=== PATIENT | male | born 1950 | race Caucasian/White ===

== ENCOUNTER 2021-09-18 20:00 | Emergency (ER) | payer MEDICARE, OTHER, SELFPAY ==
--- NOTE | ~2021-09-18 | CT_ITS ---
EXAMINATION: CT brain wo con EXAM DATE: 09/18/2021 21:59 INDICATION: fall nasal laceration . TECHNIQUE: Spiral CT of the head was performed without contrast. Axial, coronal and sagittal images were reviewed. The dose-length product (DLP) for this examination was 681.00 mGy-cm. The exposure w as tailored according to patient size, and iterative reconstruction (ASIR) was used as additional dos e reduction technique. Comparison is made to prior examination from 04/26/2018. FINDINGS: There is no acute intraparenchymal hemorrhage. No evidence of intraparenchymal brain mass lesion. No evidence of acute infarction. Please note that initial head CT has limited sensitivity f or small or acute infarctions. 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 There is mild p eriventricular and subcortical hypodensity, nonspecific but probably related to small vessel ischemic disease. There is mild to moderate prominence of the sulci and ventricles related to cerebral atro phy. There is intracranial carotid arteriosclerosis. There are no extra-axial collections. There is no mass effect or midline shift. The orbits are unremarkable. Soft tissue is unremarkable. Mild bilateral ethmoid opacity. Nasal bone and septal fractures will be described facial bone report same date. IMPRESSION: 1. No acute intracranial findings. 2. Chronic age related findings. Reviewed, dictated and finalized at location A. GARAGE MECHANIC
--- NOTE | ~2021-09-18 | CT_ITS ---
EXAMINATION: CT facial & cervical spine wo EXAM DATE: 09/18/2021 22:00 INDICATION: Fall, head injury. Nasal laceration. TECHNIQUE: Spiral CT of the facial bones was acquired in the axial plane. Coronal reformatted images were also reviewed. Spiral CT of the cervical spine was performed without contrast. Axial images we re reviewed. Coronal and sagittal reformatted images were also reviewed. The dose-length product (DL P) for this examination was 520.43 mGy-cm. The exposure was tailored according to patient size, and iterative reconstruction (ASIR) was used as additional dose reduction technique. There is no prior s tudy for comparison. FINDINGS: FACIAL CT: Acute closed posttraumatic nondisplaced bilateral nasal bone fractures. There is acute no ndisplaced nasal septal fracture. The sinuses are intact. There is mild ethmoid opacity and mild bila teral maxillary sinus mucoperiosteal thickening. The orbits, globes and extraocular muscles are unre markable. The visualized sinuses and mastoid air cells are well aerated. CERVICAL CT: Minimal anterior wedged appearance at T1, age indeterminate compression fracture, certai nly could be chronic. No unstable or definite acute fractures. The odontoid process is intact. Pre- dens space is normal. Prevertebral soft tissue is normal. There are no soft tissue abnormalities id entified. There is no disc space widening or traumatic vertebral body subluxation suspected. There is severe disc disease at C3-4 and C5-6, moderate to severe at C6-7. There is severe cervical uncover tebral joint arthropathy and overall moderate facet arthropathy. Carotid arterial sclerosis. A detai led level by level evaluation of spondylosis can be added as addendum if requested. IMPRESSION: 1. Nondisplaced nasal septal, bilateral nasal bone fractures. 2. T1 age indeterminate minimal anterior wedging. 3. Advanced cervical spondylosis. Reviewed, dictated and finalized at location A. DEALER
[2021-09-18 20:09] VITALS: BP 111/94; PULSE 83; RESP 20; TEMP 36.1; O2SAT 96
[2021-09-18 21:45] VITALS: BP 112/84; PULSE 86; RESP 19; O2SAT 99
--- NOTE | 2021-09-19 02:22 | ED.FALL ---
HPI - Fall General Chief Complaint: Fall Stated Complaint: fall, facial trauma Time Seen by Provider: 09/18/21 21:36 Source: patient History of Present Illness HPI Narrative: Patient presents with facial trauma. Reports he tripped on his front steps and struck his face on the concrete. He noted bleeding so he came to the ER for evaluation. Reports his primary area of pain is his nose he denies loss of consciousness headache focal numbness or weakness, changes in vision. Denies any prodrome prior to the event such as chest pain shortness of breath lightheadedness or dizziness. Denies any nausea vomiting or diaphoresis. Reports he takes full dose aspirin but is not on any other blood thinners Related Data Home Medications Medication Instructions Recorded Confirmed amlodipine 5 mg PO QAM 01/16/20 09/09/20 duloxetine 60 mg PO QAM 01/16/20 09/09/20 meloxicam 15 mg PO DAILY 01/16/20 09/09/20 propranolol 40 mg PO BID 01/16/20 09/09/20 rosuvastatin 10 mg PO QAM 01/16/20 09/09/20 Allergies Allergy/AdvReac Type Severity Reaction Status Date / Time Penicillins Allergy Unknown Rash Verified 09/18/21 21:36 Tetanus Vaccines and Toxoid Allergy Unknown Unknown Verified 09/18/21 21:36 Animal Dander Allergy Mild Itching Uncoded 09/18/21 21:36 Review of Systems Review of Systems: CONSTITUTIONAL: Denies fever, chills, or sweats. EYES: Denies visual changes, redness, or discharge. ENT: Denies rhinorrhea, congestion, sore throat, or otalgia. CARDIOVASCULAR: Denies chest pain, palpitations, or edema. RESPIRATORY: Denies cough or dyspnea. GASTROINTESTINAL: Denies abdominal pain, nausea, vomiting, or diarrhea. GENITOURINARY: Denies dysuria or hematuria. SKIN: Denies rash or itching. MUSCULOSKELETAL: Denies back pain, joint pain, or myalgia. NEUROLOGIC: Denies headache, numbness, dizziness, or weakness. PSYCHIATRIC: Denies anxiety or depression. All systems reviewed & are unremarkable except as noted in HPI and below PMFSH Past Medical History Medical History Arthritis Asthma Bimalleolar fracture of right ankle Depression Dizziness Fever History of adverse reaction to anesthesia HTN (hypertension) Right ankle injury Seasonal allergies Skin cancer Stroke Vertigo Vision abnormalities Surgical History Surgical History History of appendectomy Family History Family History Sibling Hypertension Family history of diabetes mellitus in first degree relative Father Family history of malignant neoplasm Social History Social History Smoking end date: 10/30/11 Alcohol intake: current Drinks per week: 20 Substance use: unknown Gender identity (if verbalized by the patient): Male Sexual Orientation (if Verbalized by the Patient): Straight or Heterosexual Exam Narrative: GENERAL: Well-appearing, well-nourished, and in no acute distress. HEAD: Normocephalic, 2 and half centimeter laceration midline nose down to the base through and through to his mucosal nasal cartilage visualized superficial laceration to the bridge of the nose EYES: PERRLA and EOMI. ENT: Nares clear, no rhinorrhea or epistaxis. Mucous membranes moist. NECK: Supple. No masses no midline neck pain CHEST: Clear to auscultation. No respiratory distress. No wheezes rales or rhonchi HEART: Regular rate and rhythm. No murmur heard. Normal peripheral pulses. ABDOMEN: Soft, nontender, nondistended, normal active bowel sounds. EXTREMITIES: Normal range of motion. No edema. SKIN: Warm, dry, no rash. NEURO: Cranial nerves II through XII are intact patient has 5 out of 5 strength in all extremities sensation intact to light touch in all extremities alert and oriented x3. PSYCH: Normal mood and affect. Course Reevaluation(s) Reevaluation #1: Toshia
--- NOTE | 2021-09-19 02:57 | PC.NURSE ---
This nurse was taking care of an ICU pt . That is why vitals and comfort measures are not per normal.
[2021-09-19 02:59] VITALS: BP 146/74; PULSE 77; RESP 18; O2SAT 99
--- NOTE | 2021-09-20 11:48 | WPDCN ---
Assessment and Plan Assessment and plan (1) Open fracture of nasal septum: Code(s): S02.2XXB - Fracture of nasal bones, initial encounter for open fracture Status: Acute Assessment and Plan: Soft tissue repairs only for these nondisplaced nasal fractures. (2) Complex laceration of nose: Code(s): S01.21XA - Laceration without foreign body of nose, initial encounter Status: Acute Assessment and Plan: Complex repair of internal and external nasal laceration with cartilage laceration Additional Plan Follow up with Dr Johnson in 1 week. Oral antibiotics. Tramadol. Dressing instructions. HPI Data of Consult Date/Time: 09/20/21 11:48 Primary Care Provider: Jennifer Ruth, PA Consult Narrative Narrative: Kaden Abdul is a 70 year old male sleeping on the gurney in emergency room 8. He responded to my presence and positioned himself. He had fallen at home onto some concrete and I was asked to evaluate him for repairs of a nasal laceration. The laceration was down the midline with torn cartilage exposed from the left genu. The laceration split the lobule and columella. The soft tissue tear extended into the left nasal vestibule where columellar tissue had from the nasal septum. CT scans revealed nondisplaced fractures of the nasal bones and septum. The patient did not recall having had a nasal fracture in the past. He was not able to recall his entire medication list. He is reported to be on 325 mg aspirin daily. He was not bleeding at the time I was with him. Plan is to repair the nose under local anesthetic in the emergency room. And follow-up in my office in roughly 1 week. He will be discharged on cephalexin and Tramadol he will be up-to-date on his Tdap. [facility] Past Medical History Medical History Arthritis Asthma Bimalleolar fracture of right ankle Depression Dizziness Fever History of adverse reaction to anesthesia HTN (hypertension) Right ankle injury Seasonal allergies Skin cancer Stroke Vertigo Vision abnormalities Surgical History Surgical History History of appendectomy Family History Family History Sibling Hypertension Family history of diabetes mellitus in first degree relative Father Family history of malignant neoplasm Social History Social History Smoking end date: 10/30/11 Alcohol intake: current Drinks per week: 20 Substance use: unknown Gender identity (if verbalized by the patient): Male Sexual Orientation (if Verbalized by the Patient): Straight or Heterosexual Meds Home Medications and Allergies Home Medications Medication Instructions Recorded Confirmed Type amlodipine 5 mg PO QAM 01/16/20 09/09/20 History duloxetine 60 mg PO QAM 01/16/20 09/09/20 History meloxicam 15 mg PO DAILY 01/16/20 09/09/20 History propranolol 40 mg PO BID 01/16/20 09/09/20 History rosuvastatin 10 mg PO QAM 01/16/20 09/09/20 History bacitracin 1 applic TOPICAL BID #14 g 09/19/21 Rx cephalexin 500 mg PO Q8H #15 cap 09/19/21 Rx tramadol 100 mg PO .q6 PRN #10 tablet 09/19/21 Rx Allergies Allergy/AdvReac Type Severity Reaction Status Date / Time Penicillins Allergy Unknown Rash Verified 09/18/21 21:36 Tetanus Vaccines and Toxoid Allergy Unknown Unknown Verified 09/18/21 21:36 Animal Dander Allergy Mild Itching Uncoded 09/18/21 21:36
--- NOTE | 2021-09-20 12:07 | W.PM.PROC2 ---
Procedure Note - Detailed Date of Procedure 09/20/21 Pre-op Diagnosis fall, facial trauma Post-op Diagnosis other ( open nasal fracture and complex laceration of the nose) Procedure Performed Complex repair of the through and through laceration of the nasal lobule and left vestibule. 5.5 cm Surgeon Trace Johnson MD Anesthesia local Indications facial trauma Description of Procedure The patient was cooperative and comfortable on the emergency [place]. The nose and mid face were prepped and draped in usual fashion. The wounds were directly infiltrated with 1% lidocaine with epinephrine achieving satisfactory anesthesia. All the wounds were carefully explored and documented. It was not significantly bleeding at this time. The nasal vestibule mucosal tear was repaired 1st with interrupted 4-0 Vicryl with the knots buried internally. The lacerated genu of the left lower lateral cartilage was repaired to the adjacent soft tissue. This was done with interrupted 4-0 Vicryl suture. A couple of stitches were placed in the deep dermis of the nose approximating the wound margins at anatomic landmarks. The skin was then closed with interrupted 5 0 nylon roughly down the midline from the upper lobule to the base of the columella. . According to the patient's evaluation there were no intraoral or dental injuries. Nasal fracture seen on CT scan were nondisplaced. Drains No Packing No Pathology none sent Complications No immediate complications Condition stable Disposition no change
== END 2021-09-19 02:59 | disposition home or self-care (01) ==
PROVIDERS: Emergency Provider Emergency Medicine; PCP Physician Assistant
DX: S02.2XXB Fracture of nasal bones, initial encounter for open fracture (principal); J45.909 Unspecified asthma, uncomplicated; M19.90 Unspecified osteoarthritis, unspecified site; I10 Essential (primary) hypertension; Z85.828 Personal history of other malignant neoplasm of skin; Z86.73 Personal history of transient ischemic attack (TIA), and cerebral infarction without residual deficits; Z87.891 Personal history of nicotine dependence; Z79.82 Long term (current) use of aspirin; W10.9XXA Fall (on) (from) unspecified stairs and steps, initial encounter
CPT/HCPCS: 13152; 70450; 70486; 72125; 99284

== ENCOUNTER 2024-03-04 13:34 | Outpatient (CLI) | payer MEDICARE, OTHER, SELFPAY ==
--- NOTE | ~2024-03-04 | MR_ITS ---
EXAMINATION: MR lumbar spine wo con DATE: 03/04/2024 14:21 INDICATION: Wedge compression fracture of fourth lumbar vertebra. TECHNIQUE: Magnetic resonance imaging (MRI) of the lumbar spine was performed without intravenous con trast. Sequences included sagittal T2-weighted FSE, sagittal T2-weighted FS FSE, sagittal T1-weighted FSE, and axial T2-weighted FSE. COMPARISON: None FINDINGS: There is 15 degrees levoscoliosis of lumbar spine. There is 3 mm retrolisthesis of T12 and L1, L1 on L2, and L2 on L3 and 3 mm anterolisthesis of L4 and L5. L1 is a limbus vertebra. There is m ild chronic anterior wedging of T10-L2 vertebral bodies. There is a burst fracture of L4 with 1/5 los s of height, low signal fracture line, and edema-like marrow signal intensity. There is severely decr eased disc height at T12-L1, moderately decreased disc height at L1-L2, severely decreased disc heigh t at L2-L3, moderately decreased disc height at L4-L5, and severely decreased disc height at L5-S1. T he distal spinal cord signal intensity is normal. The conus medullaris is at L1. The following disc l evels are specifically discussed: L1-L2: The disc is bulging. There is mild bilateral facet joint osteoarthritis. There is mild bilater al neural foraminal stenosis. There is mild central canal stenosis. L2-L3: The disc is bulging and has an annular fissure. There is moderate right and mild left facet fernanda int osteoarthritis. There is moderate bilateral neural foraminal stenosis. There is moderate central canal stenosis. L3-L4: The disc is bulging. There is moderate right and mild left facet joint osteoarthritis. There i s mild right and moderate left neural foraminal stenosis. There is severe central canal stenosis. L4-L5: The disc is bulging. There is severe bilateral facet joint osteoarthritis. There is mild bilat eral neural foraminal stenosis. There is moderate central canal stenosis. L5-S1: The disc is bulging and has an annular fissure. There is severe bilateral facet joint osteoart hritis. There is mild right and moderate left neural foraminal stenosis. There is mild central canal stenosis. IMPRESSION: 1. Acute versus subacute burst fracture of L4. 2. Severe lumbar spondylosis. 3. Lumbar levoscoliosis. Reviewed, dictated and finalized at location A.
== END 2024-03-04 13:35 ==
LOC: GOSHIMG 13:35
PROVIDERS: PCP Physician Assistant; Visit Provider Physician Assistant
DX: S32.040A Wedge compression fracture of fourth lumbar vertebra, initial encounter for closed fracture (principal); X58.XXXA Exposure to other specified factors, initial encounter; M47.896 Other spondylosis, lumbar region
CPT/HCPCS: 72148

== ENCOUNTER 2024-07-19 01:15 | Inpatient (IN) | payer MEDICARE, SELFPAY ==
[2024-07-19] VITALS (104 sets, daily range): BP systolic 75–159; BP diastolic 39–128; PULSE 104–161; RESP 19–42; TEMP 36.9–39.8; O2SAT 88–100; BMI 31.9
--- NOTE | 2024-07-19 | ECHO_ITS ---
Patient Info Name: Kaden Abdul Age: 73 years : 1950 Gender: Male Ht: 69 in Wt: 216 lbs BSA: 2.21 m2 HR: 123 bpm BP: 80 / 60 mmHg Heart Rhythm: Sinus Rhythm Technical Quality: Fair Exam Date: 07/19/2024 2:57 PM Exam Location: Echo Lab Patient Status: Inpatient Admit Date: 07/19/2024 Staff Ordering Physician: Anatoliy Roa MD Pharmacy Picking Technician: Norman Riley RDCS Attending Provider: Dianne Motta MD Referring Physician: Crispin CORTES; Exam Type: CA echo dop color flow w con Study Info Indications - respiratory failure, tachycardia Complete two-dimensional, color flow and Doppler transthoracic echocardiogram is performed with contrast to opacify the left ventricle and to improve the deliniation of the left ventricle endocardial borders. Summary 1. Technically difficult exam would done with patient on mechanical ventilator support. 2. Definity contrast used to improve visualization. 3. Global left ventricular systolic function appears to be intact. 4. No significant valvular dysfunction, mildly sclerotic aortic valve. Left Ventricle Left ventricular chamber dimension is normal. The left ventricular diastolic function is indeterminate. Global left ventricular systolic function appears normal with ejection fraction 50-55%. Right Ventricle Right ventricular chamber dimension is normal. Left Atria Left atrial chamber dimension is normal. Right Atria Right atrial chamber dimension is normal. Aortic Valve The aortic valve is trileaflet. There is mild aortic valve sclerosis. Pulmonic Valve The pulmonic valve is not well visualized. Mitral Valve The mitral valve has normal leaflets. The mitral valve annulus is mildly calcified. Tricuspid Valve The tricuspid valve leaflets are normal. Pericardium/Pleural The pericardium appears normal. Aorta The aortic root size at the sinus of Valsalva is normal. Left Ventricular Outflow Tract Name Value Normal LVOT 2D LVOT Diameter 1.91 cm LVOT Doppler LVOT Peak Gradient 2 mmHg LVOT Mean Gradient 1 mmHg LVOT VTI 13.18 cm LVOT VTI/AV VTI Ratio 1.12 LVOT Stroke Volume 37.70 ml LVOT CO 4.21 l/min LVOT CI 1.90 L/min/m2 Pulmonic Valve Name Value Normal PV Doppler PV Peak Gradient 2 mmHg Mitral Valve Name Value Normal MV Doppler MV Decel [place] 1,007.71 cm/s2 MV PHT 0 s MV Area (PHT) 9.82 cm2 4.00-5.00 MV Diastolic Fun
--- NOTE | ~2024-07-19 | XR_ITS ---
Portable chest x-ray Comparison: 07/23/2024 Clinical History: Respiratory failure Findings: Endotracheal tube, NG tube, and right IJ line are in place. [id number] bilateral ef fusions are present with bibasilar pulmonary edema/atelectasis. Cardiomediastinal silhouette is stab le. Chronic left rib fracture deformities are noted. Impression: Support tubes, as above. [id number] bilateral pleural effusions with bibasilar pulmonary edema/atelectasis. Reviewed, dictated and finalized at location M. Impression: Support tubes, as above. [id number] bilateral pleural effusions with bibasilar pulmonary edema/at electasis.
--- NOTE | ~2024-07-19 | US_ITS ---
US abdomen limited INDICATION: Elevated liver function tests PROCEDURE: Realtime right upper abdominal ultrasound. COMPARISON: No prior studies for comparison. FINDINGS: The pancreas is normal without focal mass or pancreatic ductal dilation. Liver echotexture is normal without focal mass or intrahepatic biliary dilatation. There is normal directional flow i n the portal vein. Gallbladder is contracted limiting evaluation for stones. Per clinical history there is a gallbladder drain present. Common bile duct measures 3 mm. No sonographic Samuel's sign. IMPRESSION: 1: Normal limited abdominal ultrasound. Reviewed, dictated and finalized at location B.
--- NOTE | ~2024-07-19 | CT_ITS ---
Clinical Indication: Shortness of breath CT Scan of the Chest, Abdomen, and Pelvis with Contrast: Technique: Contiguous sections were acquired throughout the chest, abdomen, and pelvis after intraven ous administration of 150 cc of Omnipaque 350. Dose reduction technique was used on this scan by uti lizing automated exposure control and iterative reconstruction technique. The dose-length product (DL P) was 1338.59 mGy-cm. Findings: There is no evidence of any significant mediastinal, hilar or axillary lymphadenopathy. The mediastin al soft tissues appear normal. No aortic aneurysm or dissection. No pulmonary embolus identified. The re are atherosclerotic calcifications of the aorta and coronary arteries. There is no evidence of pleural or pericardial effusion. There is left basilar atelectatic change. Suspected minimal subpleural reticulation in the upper lobe s. The liver, spleen, pancreas, gallbladder, and adrenal glands are within normal limits. There are bila teral nonobstructing kidney stones, measuring up to approximately 10 mm in maximum diameter on the le ft side. There are atherosclerotic calcifications of the aorta. No lymphadenopathy. There is elevati on of left hemidiaphragm. No bowel obstruction or bowel wall thickening. There is no evidence to suggest acute appendicitis. Urinary bladder is unremarkable. No pelvic mass seen. No ascites. There are compression fractures of T5 and L4. There is extensive degenerative disc disease throughout the thoracolumbar spine. Impression: Compression fractures of T5 and L4, age indeterminate. Extensive degenerative spondylosis of the spin e. Bilateral nonobstructing nephrolithiasis, as above. Probable minimal subpleural reticulation in the upper lobes. Consider very early chronic interstitial disease. Reviewed, dictated and finalized at [facility]. Impression: Compression fractures of T5 and L4, age indeterminate. Extensive degenerative s pondylosis of the spine. Bilateral nonobstructing nephrolithiasis, as above. Probable minimal subpleural reticulation in the upper lobes. Consider very leo y chronic interstitial disease.
--- NOTE | ~2024-07-19 | XR_ITS ---
EXAMINATION: XR chest 1V portable DATE: 07/26/2024 05:33 INDICATION: Intubation TECHNIQUE: frontal view of the chest was obtained. COMPARISON: Chest radiograph dated 07/25/2024 FINDINGS: Endotracheal tube tip 6.2 cm above the severino. Nasogastric tube tip in proximal side port in the body of the stomach. Right internal jugular central venous catheter with distal tip near the superior cav oatrial junction. Decreased lung predominant streaky opacities at the right lower lung zone. No significant change in o pacities in the left mid and lower lung zone consistent with small layering left pleural effusion wit h associated atelectasis and/or pneumonia. There is elevation of the left hemidiaphragm with gas-fill ed loops of bowel projecting over the apex of the heart. No pneumothorax or definitive right pleural effusion. Heart size within normal limits for AP technique. Old bilateral rib fractures. IMPRESSION: 1. Unchanged unchanged elevation of the left hemidiaphragm with small left pleural effusion and assoc iated basilar atelectasis and/or pneumonia. 2. Improvement in mild streaky right basilar atelectasis versus pneumonia. Reviewed, dictated and finalized at location A. IMPRESSION: 1. Unchanged unchanged elevation of the left hemidiaphragm with small left pleu ral effusion and associated basilar atelectasis and/or pneumonia. 2. Improvement in mild streaky right basilar atelectasis versus pneumonia.
--- NOTE | ~2024-07-19 | XR_ITS ---
Portable chest x-ray Comparison: 07/21/2024 Clinical History: COPD, respiratory failure Findings: Endotracheal tube, NG tube, and right IJ line remain in place. Probable moderate left pleu ral effusion and moderate right pleural effusion. Bibasilar pulmonary edema/atelectasis. Cardiomedia stinal silhouette is stable. Bones and soft tissues are unremarkable. Impression: Moderate pleural effusions with bibasilar pulmonary edema/atelectasis. Support tubes, as above. Reviewed, dictated and finalized at location . Impression: Moderate pleural effusions with bibasilar pulmonary edema/atelectasis. Support tubes, as above.
--- NOTE | ~2024-07-19 | US_ITS ---
EXAMINATION: US venous doppler E DATE: 07/20/2024 12:11 INDICATION: Left upper limb swelling. TECHNIQUE: Grayscale ultrasound images without and with compression and Doppler ultrasound images of the left upper extremity veins were obtained. COMPARISON: None. FINDINGS: The visualized portions of the left internal jugular vein, subclavian vein, axillary vein, brachial v eins, basilic vein, radial vein, and ulnar vein are patent. There is thrombus in left cephalic vein. IMPRESSION: 1. No deep venous thrombosis. 2. Thrombus in left cephalic vein, which is a superficial vein. Reviewed, dictated and finalized at location A.
--- NOTE | ~2024-07-19 | CT_ITS ---
EXAMINATION:CT diagnostic chest wo con DATE: 07/23/2024 09:23 INDICATION: Respiratory failure. TECHNIQUE: Computed tomography (CT) of the chest was performed without intravenous contrast. Automate d exposure control and iterative reconstruction technique were employed. The dose-length product (DLP ) was 774.68 mGy-cm. COMPARISON: Chest CT 07/19/2024 FINDINGS: There are small pleural effusions, left worse than right. There is collapse of right lung l ower lobe. There is passive atelectasis in left lower lobe and dependent left upper lobe. Calcified l eft lung nodules are consistent with old granulomatous disease. There is septal thickening at the andree g apices, consistent with mild pulmonary edema. The endotracheal tube tip is in expected position in the trachea. The nasogastric tube tip is in the stomach. The heart size is normal. There are coronary artery calcifications. No pericardial effusion. Partially visualized is a cholecystostomy tube. Ther e is thoracic dextroscoliosis and severe spondylosis. There is chronic height loss of multiple verteb ral bodies. There is a compression fracture of T5 with 1/5 loss of height. IMPRESSION: 1. Mild pulmonary edema. 2. Small pleural effusions, left worse than right. 3. Collapse of right lung lower lobe, worse than expected for the size of the pleural effusion. 4. Subacute T5 compression fracture. Reviewed, dictated and finalized at location A. IMPRESSION: 1. Mild pulmonary edema. 2. Small pleural effusions, left worse than right. 3. Collapse of right lung lower lobe, worse than expected for the size of the p leural effusion. 4. Subacute T5 compression fracture.
--- NOTE | ~2024-07-19 | XR_ITS ---
EXAMINATION: XR chest 1V portable DATE: 07/22/2024 19:21 INDICATION: Increasing oxygen demand TECHNIQUE: frontal view of the chest was obtained. COMPARISON: Chest radiograph dated 07/22/24 at 5:18 AM FINDINGS: Endotracheal tube tip 4.7 cm above the severino. Nasogastric tube extends below the left hemidiaphragm with distal tip collimated off the study. Again seen is elevation the left hemidiaphragm. No interval change in a gradient of basilar predomina nt hazy airspace opacities throughout the left lung and in the right mid to lower lung consistent wit h likely moderate-sized posterior layering bilateral pleural effusions with associated atelectasis an d/or pneumonia. No pulmonary edema or pneumothorax. Cardiomediastinal silhouette is within normal main its for AP technique. IMPRESSION: 1. Elevation of the left hemidiaphragm with no significant change in likely moderate-sized bilateral pleural effusions with associated basilar atelectasis and/or pneumonia. Reviewed, dictated and finalized at location A. IMPRESSION: 1. Elevation of the left hemidiaphragm with no significant change in likely mod erate-sized bilateral pleural effusions with associated basilar atelectasis and /or pneumonia.
--- NOTE | ~2024-07-19 | XR_ITS ---
EXAMINATION: XR chest 1V portable DATE: 07/20/2024 05:28 INDICATION: Intubated. Chronic obstructive pulmonary disease exacerbation. TECHNIQUE: A single frontal view of the chest was obtained. COMPARISON: Chest single view 07/19/2024, chest CT 07/19/2024 FINDINGS: There is marked elevation of left hemidiaphragm. There are airspace opacities in the left m id and lower lung zones, likely atelectasis. No pneumothorax. The heart size is normal. The endotrach eal tube tip is 4.2 cm above the severino. The nasogastric tube tip is in the stomach. A right internal jugular central venous catheter is seen with tip in the right atrium. There are old healed left rib fractures. IMPRESSION: 1. Marked elevation of left hemidiaphragm. 2. Airspace opacities in the left mid and lower lung zones, likely atelectasis. Reviewed, dictated and finalized at location A.
--- NOTE | ~2024-07-19 | US_ITS ---
EXAMINATION: US perc cholecystostomy w imag DATE: 07/20/2024 12:27 INDICATION: Acute cholecystitis. TECHNIQUE: The skin overlying the liver and gallbladder was prepped and draped in usual sterile fashi on. Anesthetic was administered with 1% lidocaine subcutaneously. An 8.5 Fr catheter was inserted i nto the gallbladder by trocar technique. The metal stiffener and trocar needle were removed, and the pigtail tip was locked. Bile was aspirated and sent for culture. The catheter was stitched to the ski n with suture. There were no immediate complications. FINDINGS: Ultrasound images demonstrate the catheter within the gallbladder. 7 mL bile was aspirated. IMPRESSION: 1. Successful ultrasound-guided cholecystostomy tube placement. 2. 7 mL black bile was sent for aerobic and anaerobic cultures. 3. A catheter cholangiogram may be performed not less than 48 hours after tube placement if clinicall y indicated to assess cystic duct patency. If cholecystectomy is not eventually performed and the inf ectious episode has resolved, the tube may be removed over a guidewire, preferably not less than 3 we eks after placement to allow time for a mature catheter tract to form to prevent bile leakage and per itonitis. Reviewed, dictated and finalized at location A. IMPRESSION: 1. Successful ultrasound-guided cholecystostomy tube placement. 2. 7 mL black bile was sent for aerobic and anaerobic cultures. 3. A catheter cholangiogram may be performed not less than 48 hours after tube placement if clinically indicated to assess cystic duct patency. If cholecystec alice is not eventually performed and the infectious episode has resolved, the t ube may be removed over a guidewire, preferably not less than 3 weeks after shae cement to allow time for a mature catheter tract to form to prevent bile leakag e and peritonitis.
--- NOTE | ~2024-07-19 | XR_ITS ---
EXAMINATION: XR chest 1V portable DATE: 07/21/2024 05:29 INDICATION: Intubated. Mechanically ventilated. Chronic obstructive pulmonary disease exacerbation. TECHNIQUE: A single frontal view of the chest was obtained. COMPARISON: Chest single view 07/20/2024 FINDINGS: There is marked elevation of left hemidiaphragm. There are airspace opacities in right lowe r lung zone and left mid and lower lung zones. No pleural effusion or pneumothorax. The heart size is normal. There are old healed left rib fractures. The endotracheal tube tip is 5.2 cm above the michael a. The nasogastric tube tip is in the stomach. A right internal jugular central venous catheter is se en with tip in the right atrium. IMPRESSION: 1. Stable marked elevation of left hemidiaphragm. 2. Stable airspace opacities in right lower lung zone and left mid and lower lung zones, likely atele ctasis. Reviewed, dictated and finalized at location A. IMPRESSION: 1. Stable marked elevation of left hemidiaphragm. 2. Stable airspace opacities in right lower lung zone and left mid and lower ashlie ng zones, likely atelectasis.
--- NOTE | ~2024-07-19 | XR_ITS ---
XR chest 1V portable 07/27/2024 04:48 Indication: Respiratory distress. Intubation. Procedure: AP portable chest Comparison: Comparison to multiple prior studies sequentially, with oldest reviewed study dated 07/24. Findings: Endotracheal tube tip 6 cm above the severino. NG tube in the stomach. Right IJ central line in the condyle aspect of the SVC. There are multiple healed left rib fractures. Cardiomegaly. There i s airspace disease of the lower lungs and left midlung which may reflect edema and/or pneumonia. Poss ible small left effusion. No pneumothorax. Impression: 1: Bilateral airspace disease which may represent edema and/or pneumonia. Clinically correlate. No si gnificant change from prior examination. Reviewed, dictated and finalized at location B. Impression: 1: Bilateral airspace disease which may represent edema and/or pneumonia. Clini jim correlate. No significant change from prior examination.
--- NOTE | ~2024-07-19 | CT_ITS ---
CT ANGIOGRAM NECK AND HEAD History: Altered mental status. Technique: Axial noncontrast imaging of the brain was performed. Serial spiral axial images through t he head and neck were and obtained during arterial phase IV injection of 150 cc of Omnipaque 350. 3-D postprocessing and MIP images were then reconstructed on the remote workstation. Dose reduction tech nique was used on this scan by utilizing automated exposure control and iterative reconstruction tech nique. The dose-length product (DLP) was 1897.78 mGy-cm. CTA neck findings: There is suspected occlusion at the origin of the right vertebral artery, with viera spected partial reconstitution of the midportion of the right vertebral artery, which is very small i n caliber of the distal half. Left vertebral artery is widely patent, unremarkable. Bilateral common carotid, internal carotid, and external carotid arteries are patent. There is extensive calcified shae que at the right carotid bifurcation region, resulting in possibly 70% stenosis of the distal right c ommon carotid artery, and 60-70% stenosis of the origin of the right internal carotid artery. There i s also a large calcified plaque at the left carotid bifurcation/proximal left internal carotid artery , with probable 50% stenosis of the proximal left internal carotid artery. The proximal right interna l carotid artery demonstrates 60-70% stenosis relative to the normal distal artery lumen diameter. Th e proximal left internal carotid artery demonstrates 50% stenosis relative to the normal distal arter y lumen diameter. CTA head findings: Distal vertebral arteries, basilar artery, and posterior cerebral arteries are pat ent. Distal internal carotid arteries, middle cerebral arteries, and anterior cerebral arteries are p atent. No large vessel occlusion or stenosis. No aneurysm seen. Axial noncontrast imaging of the brain demonstrates no evidence for acute infarct, intracranial hemor rhage, or mass lesion. There are mild generalized atrophic changes with cavum septum pellucidum. Ruff -white distinction intact. No mass effect or midline shift. Stable probable small chronic lacunar inf arct in the right basal ganglia. Calvarium intact. Paranasal sinuses and mastoid air cells are clear. Impression: 60-70% stenosis of the proximal right internal carotid artery with additional 70% stenosis of the dis aida right common carotid artery. 50% stenosis of the proximal left internal carotid artery. 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 with partial reconstitution at its mid portion, versus severely hypoplastic right vertebral artery. Reviewed, dictated and finalized at location M. Impression: 60-70% stenosis of the proximal right internal carotid artery with additional 7 0% stenosis of the distal right common carotid artery. 50% stenosis of the proximal left internal carotid artery. 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 with partial rec onstitution at its midportion, versus severely hypoplastic right vertebral dori ry.
--- NOTE | ~2024-07-19 | XR_ITS ---
EXAMINATION: XR chest 1V portable DATE: 07/25/2024 05:21 INDICATION: Intubated TECHNIQUE: frontal view of the chest was obtained. COMPARISON: Chest radiograph dated 07/24/2024 FINDINGS: Endotracheal tube tip 5.9 cm above the severino. Nasogastric tube tip in proximal side port in the body of the stomach. Right internal jugular central venous catheter with distal tip near the superior cav oatrial junction. Gradient of basilar predominant hazy airspace opacities in the left mid to lower and right lower lung zones consistent with small right and small to moderate-sized left posterior layering pleural effusi ons with associated bibasilar atelectasis or pneumonia. No pneumothorax. Heart size is normal. Multip le old left-sided rib fractures. IMPRESSION: 1. Endotracheal tube tip 5.9 cm above the severino. Consider advancement by 3-4 cm. 2. Small right and small to moderate-sized left posterior layering pleural effusions with associated bibasilar atelectasis and/or pneumonia. Reviewed, dictated and finalized at location A. IMPRESSION: 1. Endotracheal tube tip 5.9 cm above the severino. Consider advancement by 3-4 c m. 2. Small right and small to moderate-sized left posterior layering pleural effu sions with associated bibasilar atelectasis and/or pneumonia.
--- NOTE | ~2024-07-19 | XR_ITS ---
Portable chest x-ray Comparison: 07/22/2024 Clinical History: Respiratory failure Findings: Endotracheal tube, NG tube, and right IJ line are in place. There are small bilateral pleu ral effusions with bibasilar airspace disease, left worse than right. Cardiomediastinal silhouette i s stable. Probable chronic left rib fracture deformities. Impression: Small bilateral pleural effusions with bibasilar pulmonary edema/atelectasis, left worse than right. Correlate clinically for pneumonia. Support tubes, as above. Reviewed, dictated and finalized at location . Impression: Small bilateral pleural effusions with bibasilar pulmonary edema/atelectasis, l eft worse than right. Correlate clinically for pneumonia. Support tubes, as above.
--- NOTE | ~2024-07-19 | XR_ITS ---
Portable chest x-ray Comparison: 07/29/2024 Clinical History: Pleural effusion Findings: Endotracheal tube, NG tube, and right IJ line are in place. There is extensive hazy left l jael airspace disease. There is right basilar haziness. Cardiomediastinal silhouette is stable. Chron ic left rib fracture deformities noted. Impression: Extensive left lung hazy airspace disease and right basilar haziness. Findings probably relate combin ation of pleural effusions and pulmonary edema/atelectasis. Correlate clinically for pneumonia. Reviewed, dictated and finalized at location . Impression: Extensive left lung hazy airspace disease and right basilar haziness. Findings probably relate combination of pleural effusions and pulmonary edema/atelectasi s. Correlate clinically for pneumonia.
--- NOTE | ~2024-07-19 | XR_ITS ---
XR chest 1V portable 07/28/2024 05:24 Indication: Respiratory distress Procedure: AP portable chest Comparison: Comparison to multiple prior studies sequentially, with oldest reviewed study dated 07/24. Findings: Endotracheal tube tip 6.2 cm above the severino. Small pleural effusions. Borderline heart si ze. NG tube in the stomach. Right IJ central line tip mass PA-C. Mild interstitial edema. No pneumoth orax. Impression: 1: Mild interstitial edema with small pleural effusions. Reviewed, dictated and finalized at location B. Impression: 1: Mild interstitial edema with small pleural effusions.
--- NOTE | ~2024-07-19 | XR_ITS ---
EXAMINATION: XR chest 1V portable DATE: 07/24/2024 10:30 INDICATION: Respiratory failure post bronchoscopy TECHNIQUE: frontal view of the chest was obtained. COMPARISON: Chest radiograph dated 07/24/2024 FINDINGS: Endotracheal tube tip 7.5 cm above the severino. Nasogastric tube tip in proximal side port in the body the stomach. Dual-lumen right internal jugular central venous catheter tip at the caudal superior ve na cava. Gradient of basilar predominant hazy airspace opacities in the left mid to lower and right l ower lung zones consistent with small right and small to moderate-sized left posterior layering pleur al effusions. More dense airspace opacities at the left lung base could represent associated atelecta sis or pneumonia. No pneumothorax. Heart size is normal. There is an additional catheter projecting o nanda the right abdomen. Multiple old left-sided rib fractures. IMPRESSION: 1. Endotracheal tube tip 7.5 cm above the severino. Consider advancement by 4.5 cm. 2. Small right and small to moderate-sized left posterior layering pleural effusions with associated basilar atelectasis and/or pneumonia. Reviewed, dictated and finalized at location A. IMPRESSION: 1. Endotracheal tube tip 7.5 cm above the severino. Consider advancement by 4.5 c m. 2. Small right and small to moderate-sized left posterior layering pleural effu sions with associated basilar atelectasis and/or pneumonia.
--- NOTE | ~2024-07-19 | XR_ITS ---
Portable chest x-ray Comparison: 07/28/2024 Clinical History: Respiratory failure Findings: Endotracheal tube, NG tube, and right IJ line are unchanged. [id number] left pleura l effusion present with probable left lower lobe atelectasis. Possible minimal right pleural effusion . Cardiomediastinal silhouette is stable. Bones and soft tissues are unremarkable. Impression: Support tubes, as above. [id number] left pleural effusion with left lower lobe atelectasis. Correlate for associated mild bibasilar pulmonary edema or pneumonia. Reviewed, dictated and finalized at location . Impression: Support tubes, as above. [id number] left pleural effusion with left lower lobe atelectasis. Correlate for associated mild bibasilar pulmonary edema or pneumonia.
--- NOTE | ~2024-07-19 | XR_ITS ---
EXAMINATION: XR chest ET placement, XR abdomen gastric tube insert DATE: 07/19/2024 12:00 INDICATION: Endotracheal tube and and orogastric tube insertion. TECHNIQUE: 1. Frontal view of the chest was obtained for assessment of endotracheal tube placement. 2. Supine AP view of the upper abdomen and chest was obtained for assessment of orogastric tube place ment. COMPARISON: CT dated 07/19/2024 at 4:14 AM FINDINGS: Endotracheal tube tip 6.2 cm above the severino. There opacities along the elevated left hemidiaphragm as well as a bandlike opacity left midlung zone which correspond to atelectasis on CT from 7 hours pr ior. Lung correlated with the prior CT the orogastric tube extends into the body of the stomach which is located more cephalad than typical resulting from the elevation the left hemidiaphragm. The proxi mal sideport is located near the level of the gastroesophageal junction. Size is normal. Right lung i s clear. No pneumothorax or right pleural effusion. Small left pleural effusions not excludable but n ot evident on the recent prior CT. There are few old left rib fractures. IMPRESSION: 1. Endotracheal tube tip 6.2 cm above the severino. Consider advancement by 4 cm. 2. Orogastric tube tip in the body of the stomach with proximal side-port near the gastroesophageal j unction and could consider advancement by 3-[address] the side-port definitively below level of t he gastroesophageal junction. 3. Elevation the left hemidiaphragm with opacities in the left mid and lower lung zone corresponding to atelectasis on the recent prior CT. Reviewed, dictated and finalized at location B. IMPRESSION: 1. Endotracheal tube tip 6.2 cm above the severino. Consider advancement by 4 cm. 2. Orogastric tube tip in the body of the stomach with proximal side-port near the gastroesophageal junction and could consider advancement by 3-[address] the side-port definitively below level of the gastroesophageal junction. 3. Elevation the left hemidiaphragm with opacities in the left mid and lower ashlie ng zone corresponding to atelectasis on the recent prior CT.
--- NOTE | ~2024-07-19 | XR_ITS ---
Portable chest x-ray Comparison: 07/30/2024 Clinical History: Pneumonia Findings: Endotracheal tube, NG tube, and right IJ line are unchanged. Moderate left pleural effusio n and probable minimal right pleural effusion present. There is hazy bibasilar and left perihilar air space disease. Cardiomediastinal silhouette is stable. Bones and soft tissues are unremarkable. Impression: Moderate left pleural effusion and minimal right pleural effusion. Hazy bibasilar and left perihilar airspace disease. Correlate for pulmonary edema/atelectasis versus pneumonia. Support tubes, as above. Reviewed, dictated and finalized at location . Impression: Moderate left pleural effusion and minimal right pleural effusion. Hazy bibasilar and left perihilar airspace disease. Correlate for pulmonary jeimy ma/atelectasis versus pneumonia. Support tubes, as above.
--- NOTE | ~2024-07-19 | US_ITS ---
Limited ABDOMINAL ULTRASOUND Ordering provider: Anatoliy Roa MD History: . Hyper biliary . Comparison: None. FINDINGS: LIVER: Normal size. Increased echogenicity suggestive of fat infiltration. No focal hepatic lesions o r perihepatic fluid collections are identified. Normal flow of the portal vein. GALLBLADDER: Distended with echogenic debris No evidence for stones, gallbladder wall thickening or p ericholecystic fluid collections. Wall thickness is 2.4 mm. Indeterminate sonographic Samuel's sign. BILIARY DUCTS: No evidence for intra or extrahepatic biliary dilation. Common bile duct measures 5 mm in diameter which is within normal limits. PANCREAS: Normal echotexture and size. FREE FLUID: None. IMPRESSION: Distended gallbladder with echogenic debris is suggestive of sludge. Fat infiltration of the liver. US abdomen limited, US renal BI Ordering provider: Anatoliy Roa MD History: . Hyper biliary . Comparison: None. Technique: Ultrasound bilateral kidneys. Findings: RIGHT KIDNEY: Measures 9.5x 5.2x 4.8 cm in length which is normal in size. No renal cysts. No renal m ass or visualized echogenic stones. Otherwise, normal echotexture and contour. No hydronephrosis. Nor mal renal cortical thickness. LEFT KIDNEY: Measures 11.1x 7.1x 6.0 cm in length which is normal in size. No renal cysts. No renal m ass or visualized echogenic stones. Otherwise, normal echotexture and contour. No hydronephrosis. Nor mal renal cortical thickness. BLADDER: Shirley's catheter is seen in the bladder. IMPRESSION: No definite abnormality seen. Reviewed, dictated and finalized at location A. IMPRESSION: Distended gallbladder with echogenic debris is suggestive of sludge. Fat infiltration of the liver. US abdomen limited, US renal BI Ordering provider: Anatoliy Roa MD History: . Hyper biliary . Comparison: None. Technique: Ultrasound bilateral kidneys. Findings: RIGHT KIDNEY: Measures 9.5x 5.2x 4.8 cm in length which is normal in size. No r enal cysts. No renal mass or visualized echogenic stones. Otherwise, normal ech otexture and contour. No hydronephrosis. Normal renal cortical thickness. LEFT KIDNEY: Measures 11.1x 7.1x 6.0 cm in length which is normal in size. No r enal cysts. No renal mass or visualized echogenic stones. Otherwise, normal ech otexture and contour. No hydronephrosis. Normal renal cortical thickness. BLADDER: Shirley's catheter is seen in the bladder. IMPRESSION: No definite abnormality seen.
--- NOTE | 2024-07-19 01:26 | ECG_ITS ---
Test Date: 2024-07-19 01:40:43 Measurements Intervals [place] Rate: 149 P: -21 MS: 109 QRS: -16 QRSD: 82 T: 58 QT: 285 QTc: 450 Interpretive Statements ATRIAL FLUTTER/TACHYCARDIA WITH RAPID VENTRICULAR RESPONSE LOW QRS VOLTAGE IN LIMB LEADS PATTERN CONSISTENT WITH PULMONARY DISEASE BASELINE ARTIFACT- I, II, III, AVR, AVL, AVF, V1-V6 ABNORMAL ECG No previous ECG available for comparison Electronically Signed On 07-19-2024 06:51:33 CDT by Jefry Barragan D.O.
[2024-07-19] MEDS: IPRATROPIUM 0.5 MG/ALBUTEROL SULFATE 2.5 MG AMPUL.NEB 3 ML (01:30)
[2024-07-19] MEDS: ALBUTEROL SULFATE NEB 2.5 MG/3 ML INH (01:30)
--- NOTE | 2024-07-19 01:30 | ED.GENADULT ---
HPI - General Adult General Chief complaint: Shortness of Breath/Dyspnea Stated complaint: short of breath/aphasia History of Present Illness HPI narrative: 73-year-old male presenting emergency department by EMS for evaluation of worsening shortness of breath. Family reports they initially went to an outside hospital per but the wait was too long so they decided to go back home. After arriving back home patient began developing some expressive aphasia this was approximately 6:00 p.m.. EMS was called out to the house at that time and patient declined to be transported. At that time patient's only complaint was expressive aphasia and patient was not having any shortness of breath. After EMS left patient had worsening symptoms and family once again called EMS and patient was transported to [place]. The primary reason for calling EMS the 2nd time was due to the patient having worsening shortness of breath. Patient does have history of COPD but is not on oxygen. Patient was 60% on room air and was placed on CPAP without significant improvement in his respiratory status. Patient was transitioned to BiPAP upon arrival. Upon arrival to the emergency department patient was and respiration dressed but was alert and commanding. Related Data Home Medications Medication Instructions Recorded Confirmed duloxetine 60 mg capsule,delayed 60 mg PO BID 01/16/20 09/09/20 release meloxicam 15 mg tablet 15 mg PO DAILY 01/16/20 09/09/20 propranolol 40 mg tablet 20 mg PO BID 01/16/20 09/09/20 rosuvastatin 10 mg tablet 10 mg PO QAM 01/16/20 09/09/20 albuterol sulfate 2.5 mg/3 mL 2.5 mg inhalation Q6H PRN Wheezing 07/19/24 (0.083 %) solution for nebulization albuterol sulfate 90 mcg/actuation inhalation 07/19/24 aerosol inhaler aspirin 325 mg tablet 325 mg PO DAILY 07/19/24 budesonide 160 mcg-glycopyr 9 inh inhalation BID 07/19/24 mcg-formot 4.8 mcg/actuation HFA inhaler (Breztri Aerosphere) folic acid 1 mg tablet 07/19/24 pantoprazole 40 mg tablet,delayed 40 mg PO DAILY 07/19/24 release thiamine HCl (vitamin B1) 100 mg mg 07/19/24 tablet Allergies Allergy/AdvReac Type Severity Reaction Status Date / Time Penicillins Allergy Unknown Rash Verified 09/20/24 07:25 Tetanus Vaccines and Toxoid Allergy Unknown Unknown Verified 07/19/24 07:25 Animal Dander Allergy Mild Itching Uncoded 07/19/24 07:25 Review of Systems Review of Systems: All systems reviewed & are unremarkable except as noted in HPI and below PMFSH Past Medical History Medical History Arthritis Asthma Bimalleolar fracture of right ankle Depression Dizziness Fever History of adverse reaction to anesthesia HTN (hypertension) Right ankle injury Seasonal allergies Skin cancer Stroke Vertigo Vision abnormalities Surgical History Surgical History History of appendectomy Family History Family History Sibling Hypertension Family history of diabetes mellitus in first degree relative Father Family history of malignant neoplasm Social History Social History Smoking end date: 10/30/11 Alcohol intake: current Drinks per week: 20 Substance use: unknown Living arrangements: with family Gender identity (if verbalized by the patient): Male Sexual Orientation (if Verbalized by the Patient): Straight or Heterosexual Exam Narrative: APPEARANCE: Respiratory distress upon arrival HEAD: normocephalic, atraumatic. EYES: PERRLA/EOMI, conjunctivae clear. NOSE: Normal no drainage EARS:TMS clear with good light reflex. THROAT: Pharynx clear, no exudate. NECK: Supple. No adenopathy, no masses. RESPIRATORY: Wheezing bilaterally tachypneic CARDIOVASCULAR: Regular rate and rhythm without murmurs rubs or gallops. ABDOMINA
[2024-07-19] MEDS: SODIUM CHLORIDE 0.9% IV 1,000 ML 999 ML IV CONT (01:35)
[2024-07-19] MEDS: METOPROLOL TARTRATE INJ 5 MG/5 ML VIAL IV PUSH ×2 (01:36→22:57)
[2024-07-19] MEDS: methylPREDNISolone SOD SUCC 125 MG VIAL IV PUSH ×2 (01:36→12:04)
[2024-07-19 02:09] LABS: Hematocrit 45.7 % (42.0-52.0); Hemoglobin 14.8 g/dL (14.0-18.0); Mean Corpuscular HGB Conc 32.4 g/dl (32-36); Mean Corpuscular Hemoglobin 30.6 pg (26-34); Mean Corpuscular Volume 94.4 fl (80-100); Platelet Count Result 201 k/mm3 (150-375); Red Blood Count 4.84 M/mm3 (4.6-6.20); Red Cell Distribution Width 15.9 % (11.5-14.5); White Blood Count 14.4 K/mm3 (4.5-10.0)
[2024-07-19 02:19] LABS: Prothrombin Time 13.4 Seconds (11.1-14.7)
[2024-07-19 02:20] LABS: Partial Thromboplastin Time 26.3 Seconds (22.3-36.8)
[2024-07-19 02:21] LABS: Alveolar/Arterial O2 Gradient 355.4 mmHg; Base Excess ABG -3.6 mEq/l (+/-2.0); Carboxyhemoglobin 0.7 % THb (0-2.0); Fractional Inspired Oxygen 100 %; HCO3 ABG 19.4 mEq/l (22.0-26.0); Methemoglobin ABG 0.2 %THb (0-1.5); Oxygen Content ABG 20.7 %vol (16.0-22.0); Oxygen Saturation ABG 99.8 % (95.0-100.0); Oxyhemoglobin 98.8 % THb (90.0-100.0); PCO2 ABG 29.7 mmHg (35.0-45.0); PO2 ABG 327.9 mmHg (80.0-100.0); PO2 FiO2 Ratio Arterial Blood 3.28 %; Reduced Hemoglobin 0.3 %THb (0-5.0); Total Hemoglobin 14.3 g/dL (12.0-18.0)
[2024-07-19 02:23] LABS: Modified Allen's Test Pass; Site Drawn RIGHT RADIAL
[2024-07-19 02:24] LABS: Device BIPAP; pH ABG 7.432 (7.350-7.450)
[2024-07-19 02:25] LABS: Inspiratory Pressure 14 cmH2O
[2024-07-19 02:26] LABS: Expiratory Pressure 7 cmH2O
[2024-07-19 02:27] LABS: NT Pro B Type Natriuretic Pept 321 pg/mL (19.9-100)
[2024-07-19 02:29] LABS: Platelet Estimate Adequate (Adequate); Total Cells Counted 100
[2024-07-19 02:30] LABS: Lymphocytes Absolute Manual 0.43 K/mm3 (1.1-4.5); Lymphocytes Percent Manual 3 % (18-44); Monocytes Absolute Manual 0.43 K/mm3 (0.1-0.90); Monocytes Percent Manual 3 % (3-9)
[2024-07-19 02:31] LABS: Band Neutrophils Percent 8 % (0-6); Neutrophils Absolute Manual 13.53 K/mm3 (1.3-6.7); Neutrophils Percent Manual 86 % (46-73); Schistocytes None Seen
[2024-07-19 02:44] LABS: Influenza A QL RT-PCR Negative (Negative); Influenza B QL RT-PCR Negative (Negative); RSV RNA, RT-PCR Negative (Negative); SARS-CoV-2 RNA PCR Negative (Negative)
[2024-07-19 03:32] LABS: Potassium 4.5 mmol/L (3.4-5.0); Sodium 126 mmol/L (137-145)
[2024-07-19 03:33] LABS: Anion Gap 11 mmol/L (4-12); Blood Urea Nitrogen 27 mg/dL (9-20); Carbon Dioxide 27 mmol/L (22-30); Chloride 88 mmol/L (98-107); Estimated CRCL calculation 52 ml/min; Estimated Glomerular Filt Rate 54; Glucose 90 mg/dL (65-110)
[2024-07-19 03:34] LABS: Alanine Aminotransferase 51 U/L (6-50); Albumin Level 4.1 g/dL (3.5-5.1); Aspartate Amino Transferase 113 U/L (17-59); Bilirubin,Total 2.2 mg/dL (0.2-1.3); Calcium 8.8 mg/dL (8.4-10.2); Total Protein 7.3 g/dL (6.3-8.2)
[2024-07-19 03:35] LABS: Alkaline Phosphatase 172 U/L (38-126)
[2024-07-19 03:54] LABS: Estimated CRCL calculation 40 ml/min; Estimated Glomerular Filt Rate 40
[2024-07-19 05:47] LABS: Glucose Point of Care 93 mg/dl (65-105)
--- NOTE | 2024-07-19 06:34 | PC.NURSE ---
Pt taken off of bipap and placed on 2L NC per DALTON GRULLON. O2 currently 94% on 2L.
[2024-07-19] MEDS: AZITHROMYCIN 500 MG/NS 250 ML 500 MG/250 ML BAG 250 MG IVPB (08:12)
--- NOTE | 2024-07-19 08:44 | PC.NURSE ---
pt is restless, continuing to pull bipap off and trying to get out of bed. ED respiratory at beside and placed pt back on bipap. pt placed on bed alarm. educated pt on importance of leaving bipap on. Hospitalist made aware and states to give 2mg of morphine IV. VORB.
--- NOTE | 2024-07-19 08:48 | ECG_ITS ---
Test Date: 2024-07-19 10:41:35 Measurements Intervals [place] Rate: 120 P: 73 [place]: 143 QRS: 22 QRSD: 85 T: 59 QT: 312 QTc: 442 Interpretive Statements SINUS TACHYCARDIA BASELINE ARTIFACT- I, II, III, AVR, AVL, AVF, V1-V6 ABNORMAL ECG Compared to ECG 07/19/2024 01:40:43 Atrial flutter no longer present Electronically Signed On 07-19-2024 19:00:36 CDT by Jefry Barragan D.O.
[2024-07-19] MEDS: MORPHINE SULFATE (*CRX) 2 MG/ML INJ IV PUSH (08:50)
--- NOTE | 2024-07-19 09:01 | PC.NURSE ---
pt's , Vanessa, called and states that pt's pcp told her to tell us that pt is an alcoholic. she states pt lies about it, but typically drinks about 7-8 shots of vodka a day.
[2024-07-19] MEDS: LORazepam INJ (*CRX) 2 MG/ML VIAL 1 MG IV PUSH (09:52)
--- NOTE | 2024-07-19 10:18 | ADMGEN ---
This patient, Kaden Abdul, was admitted to Intensive Care Unit-3. Patient/family oriented to hospital policies and general routines including ID bracelet, bed and alarms, visiting hours, pain management, procedures, bathroom and other care routines, personal items, smoking policy, room service/diet, and visiting hours. Information on how to activate the Rapid Response Team has been discussed. Patient/Family are encouraged to report perceived risks to care and to ask questions if they do not understand what they are told or what they should do.
--- NOTE | 2024-07-19 10:35 | ECG_ITS ---
Test Date: 2024-07-19 10:42:17 Measurements Intervals [place] Rate: 122 P: 90 [place]: 150 QRS: 59 QRSD: 78 T: 69 QT: 308 QTc: 439 Interpretive Statements SINUS TACHYCARDIA BASELINE ARTIFACT- I, II, III, AVR, AVL, AVF, V1-V6 ABNORMAL ECG Compared to ECG 07/19/2024 10:41:35 NO SIGNIFICANT CHANGE Electronically Signed On 07-19-2024 18:35:09 CDT by Jefry Barragan D.O.
[2024-07-19] MEDS: LACTATED RINGERS 1,000 ML 999 ML IV CONT ×2 (11:00→12:33)
--- NOTE | 2024-07-19 11:06 | ECG_ITS ---
Test Date: 2024-07-19 15:29:26 Measurements Intervals [place] Rate: 120 P: 42 [place]: 149 QRS: 1 QRSD: 82 T: 55 QT: 310 QTc: 438 Interpretive Statements SINUS TACHYCARDIA LOW QRS VOLTAGE IN LIMB LEADS INFERIOR INFARCT, AGE INDETERMINATE ABNORMAL ECG Compared to ECG 07/19/2024 10:42:17 NO SIGNIFICANT CHANGE Electronically Signed On 07-19-2024 18:52:24 CDT by Jefry Barragan D.O.
--- NOTE | 2024-07-19 11:17 | PM.CNCAR ---
Assessment and Plan Assessment and plan (1) Acute respiratory distress: Code(s): R06.03 - Acute respiratory distress Status: Acute Plan this is a 73-year-old man with severe respiratory insufficiency he is being emergently intubated. He is in a rapid sinus tachycardia and this is likely the result of hypoxemia / respiratory extremis. Electrocardiogram does not show evidence of an acute myocardial infarction and according to the chart his chief complaint did not include any chest pain. I do not believe there is any argument for bringing this patient to the cardiac catheterization lab for angiography. Owen Downs MD [facility] History of Present Illness History of Present Illness Consult date/time: 07/19/24 11:17 Reason For Visit: COPD/Pneumonia/CVA Narrative: this is a 73-year-old man I am seeing urgently in the ICU room 3. As there was concern on the part of the ICU staff that the patient potentially having an ST-elevation PR. Patient is in respiratory extremis, in the process of being intubated and incapable of providing any history. Apparently he is a patient that is not known to have heart disease he presented to the hospital in the middle of the night by ambulance with complaints of shortness of breath as well as according to the history complaints of expressive aphasia. According to the ER physician his aphasia was waxing and waning in the emergency room. He was having difficulty with shortness of breath was felt to be having a COPD exacerbation. Also suspected to be very has a having a CVA or a TIA. His evaluation included a CTA of the neck and head which did demonstrate occlusion of 1 of the vertebral arteries and some bilateral carotid artery disease does does not appear to be severe. Following admission to the hospital he was noted to be severely short of breath and was in a very rapid sinus tachycardia. There was some concern on the part of the staff that he had ST and T abnormalities compatible with a STEMI. For that reason I was consulted to come see him in the ICU. There have been 4 electrocardiograms performed as of this moment none of them demonstrate evidence of acute current of injury. There is no chest x-ray on the chart to review there will be 1 done of course following the intubation which is in process right now. Review of Systems Review of Systems: ROS unobtainable: Yes unobtainable due to endotracheal tube, unobtainable due to medical condition and unobtainable due to mental status [facility] Past Medical History Medical History Arthritis Asthma Bimalleolar fracture of right ankle Depression Dizziness Fever History of adverse reaction to anesthesia HTN (hypertension) Right ankle injury Seasonal allergies Skin cancer Stroke Vertigo Vision abnormalities Surgical History Surgical History History of appendectomy Family History Family History Sibling Hypertension Family history of diabetes mellitus in first degree relative Father Family history of malignant neoplasm Social History Social History Smoking end date: 10/30/11 Alcohol intake: current Drinks per week: 20 Substance use: unknown Living arrangements: with family Gender identity (if verbalized by the patient): Male Sexual Orientation (if Verbalized by the Patient): Straight or Heterosexual Meds Home Medications and Allergies Home Medications Medication Instructions Recorded Confirmed Type duloxetine 60 mg capsule,delayed 60 mg PO BID 01/16/20 09/09/20 History release meloxicam 15 mg tablet 15 mg PO DAILY 01/16/20 09/09/20 History propranolol 40 mg tablet 20 mg PO BID 01/16/20 09/09/20 History rosuvastatin 10 mg tablet 10 mg PO QAM 01/16/20 09/09/20 History bacitracin 5
[2024-07-19] MEDS: FENTANYL 2,500MCG/NS250ML(*CRX 2,500 MCG/250 ML BAG IV CONT (11:26)
[2024-07-19] MEDS: MIDAZOLAM 100MG/NS 100ML(*CRX) 100 MG/100 ML BAG IV CONT (11:27)
[2024-07-19] MEDS: ETOMIDATE 20 MG/10 ML AMPUL 24 MG IV PUSH (11:28)
[2024-07-19] MEDS: ROCURONIUM BROMIDE 50 MG/5 ML VIAL IV PUSH (11:28)
[2024-07-19 12:01] LABS: Hematocrit 38.1 % (42.0-52.0); Hemoglobin 12.8 g/dL (14.0-18.0); Immature Platelet Fraction Pct 7.8 % (0.9-11.2); Mean Corpuscular HGB Conc 33.6 g/dl (32-36); Mean Corpuscular Hemoglobin 30.6 pg (26-34); Mean Corpuscular Volume 91.1 fl (80-100); Mean Platelet Volume 11.2 fl (7.4-10.4); Platelet Count Result 118 k/mm3 (150-375); Red Blood Count 4.18 M/mm3 (4.6-6.20); Red Cell Distribution Width 16.1 % (11.5-14.5); White Blood Count 4.9 K/mm3 (4.5-10.0)
--- NOTE | 2024-07-19 12:07 | PC.NURSE ---
1045-Roula Garnica NP and Dr. Downs at bedside reviewing EKG. Pt. determined to not be having a STEMI at this time.
[2024-07-19 12:13] LABS: Lactic Acid Reflex 2.5 mmol/L (0.7-2.0)
[2024-07-19 12:14] LABS: Add Urine Microscopic? YES; Alanine Aminotransferase 38 U/L (6-50); Albumin Level 2.7 g/dL (3.5-5.1); Alkaline Phosphatase 132 U/L (38-126); Anion Gap 13 mmol/L (4-12); Appearance Urine Clear (Clear); Aspartate Amino Transferase 73 U/L (17-59); Bacteria Urine None Seen /hpf; Bilirubin Urine Negative (Negative); Bilirubin,Total 1.7 mg/dL (0.2-1.3); Blood Urea Nitrogen 35 mg/dL (9-20); Blood Urine Negative (Negative); Calcium 7.6 mg/dL (8.4-10.2); Carbon Dioxide 18 mmol/L (22-30); Chloride 95 mmol/L (98-107); Color Urine Dark Yellow (Yellow); Creatine Kinase 60 U/L (55-170); Estimated CRCL calculation 36 ml/min; Estimated Glomerular Filt Rate 33; Glucose 91 mg/dL (65-110); Glucose Urine UA Negative (Negative); INR 1.1; Ketones Urine Trace mg/dL (Negative); Leukocyte Esterase Ur Trace LEU/UL (Negative); Need Manual Microscopic Reviewed; Nitrate Urine Negative (Negative); Potassium 4.1 mmol/L (3.4-5.0); Protein Urine 1+ mg/dL (Negative); Prothrombin Time 14.1 Seconds (11.1-14.7); RBC Urine 0-2 /hpf (0-2); Sodium 126 mmol/L (137-145); Specific Grav Ur 1.034 (1.001-1.035); Squamous Epithelial Cell Urine Occasional /hpf (Few)
[2024-07-19 12:14] LABS: Alveolar/Arterial O2 Gradient 495.9 mmHg; Base Excess ABG -6.3 mEq/l (+/-2.0); Carboxyhemoglobin 1.2 % THb (0-2.0); Fractional Inspired Oxygen 100 %; HCO3 ABG 17.5 mEq/l (22.0-26.0); Methemoglobin ABG 0.2 %THb (0-1.5); Oxygen Content ABG 18.2 %vol (16.0-22.0); Oxygen Saturation ABG 99.1 % (95.0-100.0); Oxyhemoglobin 97.9 % THb (90.0-100.0); PCO2 ABG 29.9 mmHg (35.0-45.0); PO2 ABG 167.2 mmHg (80.0-100.0); PO2 FiO2 Ratio Arterial Blood 1.67 %; Reduced Hemoglobin 0.7 %THb (0-5.0); pH ABG 7.385 (7.350-7.450)
[2024-07-19 12:15] LABS: Partial Thromboplastin Time 25.8 Seconds (22.3-36.8)
[2024-07-19] MEDS: NOREPINEPHRINE 8 MG/D5W 250 ML 8 MG/250 ML BAG 9.38 MG IV CONT (12:15)
--- NOTE | 2024-07-19 12:16 | WPDCNINT ---
Assessment and Plan Assessment and plan (1) Acute respiratory failure: Code(s): J96.00 - Acute respiratory failure, unspecified whether with hypoxia or hypercapnia Status: Acute Assessment and Plan: Acute respiratory failure likely related to pneumonia versus COPD exacerbation. -07/19: Intubated for impending respiratory failure as patient was tachypneic, tachycardic with severe mottling on bilateral lower extremities, obtunded on BiPAP -will start home Trelegy inhaler -start bronchodilators -started on Solu-Medrol -chest x-ray and ABGs reviewed, ventilator adjusted, ETT advanced 2 cm -check urine pneumococcal antigen, urine Legionella antigen -sedated with fentanyl and Versed infusion maintain RASS of 0 TO -1 the least spontaneous breathing trials and spontaneous awakening trials (2) Shock: Code(s): R57.9 - Shock, unspecified Status: Acute Assessment and Plan: Hypotension, lactic acidosis, tachycardia, tachypnea, hyperbilirubinemia, acute kidney injury, mottling on lower extremities, fevers -patient seems to be hypovolemic, fluid-resuscitated -could be related to pneumonia, bacteremia -patient on azithromycin and ceftriaxone, will add vancomycin -07/19: Blood cultures obtained and pending -07/19: Urine cultures obtained and -07/19: Sputum cultures will be obtained Will obtain echocardiogram (3) AMS (altered mental status): Code(s): R41.82 - Altered mental status, unspecified Status: Acute Assessment and Plan: Patient with altered mental status could be related to hypoxia. Urine drug screen was negative -patient also had some aphasia which could be secondary to a stroke/hypoxia -neurology has been consulted 07/19: CTA neck 60-70% stenosis of the proximal right internal carotid artery with additional 70% stenosis of the distal right common carotid artery. 50% stenosis of the proximal left internal carotid artery. 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 with partial reconstitution at its midportion, versus severely hypoplastic right vertebral artery (4) Aphasia: Code(s): R47.01 - Aphasia Status: Acute Assessment and Plan: As above (5) COPD exacerbation: Code(s): J44.1 - Chronic obstructive pulmonary disease with (acute) exacerbation Status: Acute Assessment and Plan: Continue mechanical ventilation, bronchodilators and steroids (6) Pneumonia: Code(s): J18.9 - Pneumonia, unspecified organism Status: Acute Assessment and Plan: Continue antibiotics as above (7) NIKKO (acute kidney injury): Code(s): N17.9 - Acute kidney failure, unspecified Status: Acute Assessment and Plan: Baseline creatinine 1.30, -currently acute kidney injury with creatinine of 2.0 this admission -could be related to hypovolemia, infection, shock, hypoxia -CK levels within normal limits -check urine lytes -check a renal ultrasound,, urine eosinophils (8) Hyperbilirubinemia: Code(s): E80.6 - Other disorders of bilirubin metabolism Status: Acute Assessment and Plan: Hyperbilirubinemia with transaminitis -likely related to shock, hypotension -will obtain right upper quadrant ultrasound and hepatitis panel Plan DVT prophylaxis: Lovenox Stress ulcer prophylaxis: Protonix Nutrition: NPO will start tube feeds in a.m. Code Status: DNR Critical Care Time Spent: 59 minutes Discussed with Vanessa, patient's , updated with patient's condition and plan of care. I answered all questions,. Discussed with her regarding advanced directives and code status to which she said she does not want him to be resuscitated in case of cardiac arrest. Short of that we will continue everything to do. So patient is currently do not resuscitated, orders have been entered in the chart Due to a high probability of clinically significant, life threatening deterioration, the patient required my h
[2024-07-19 12:30] LABS: Amphetamine Screen Urine Negative (Negative); Barbiturate Screen Urine Negative (Negative); Benzodiazepines Screen Urine Negative (Negative); Cannabinoid Screen Urine Negative (Negative); Cocaine Screen Urine Negative (Negative); Methadone Screen Urine Negative (Negative); Opiate Screen Urine Negative (Negative); Phencyclidine Screen Urine Negative (Negative)
[2024-07-19 12:35] LABS: Device VENTILATOR
[2024-07-19 12:36] LABS: Arterial Blood Gas PEEP 5 cmH2O; Arterial Blood Gas Tidal Volume 450 ml; Arterial Blood Gas Vent Mode CMV; Arterial Blood Gas Ventilator rate 24 /MIN
[2024-07-19 12:37] LABS: Site Drawn LEFT RADIAL
[2024-07-19 12:38] LABS: Troponin I 0.032 ng/mL (0.000-0.034)
[2024-07-19] MEDS: methylPREDNISolone SOD SUCC 125 MG VIAL 40 MG IV PUSH ×3 (12:46→22:57)
[2024-07-19] MEDS: SODIUM BICARBONATE 8.4% 50 MEQ/50 ML SYRINGE 100 MEQ IV PUSH (12:46)
[2024-07-19] MEDS: PANTOPRAZOLE SODIUM IV 40 MG VIAL IV PUSH (12:46)
[2024-07-19 12:49] LABS: Band Neutrophils Percent 9 % (0-6); Basophils Absolute Manual 0.04 K/mm3 (0.0-0.1); Basophils Percent Manual 1 % (0-1); Eosinophils Absolute Manual 0.04 K/mm3 (0.02-0.50); Eosinophils Percent Manual 1 % (0-4); Lymphocytes Absolute Manual 0.24 K/mm3 (1.1-4.5); Metamyelocytes Percent 5 %; Monocytes Absolute Manual 0.09 K/mm3 (0.1-0.90); Monocytes Percent Manual 2 % (3-9); Myelocytes Percent 2 %; Neutrophils Absolute Manual 4.11 K/mm3 (1.3-6.7); Neutrophils Percent Manual 75 % (46-73); Platelet Estimate Decreased (Adequate); Schistocytes None Seen; Total Cells Counted 100
[2024-07-19 12:50] LABS: Anisocytosis 1+
[2024-07-19] MEDS: CALCIUM GLUC 2,000 MG/NS 100ML 2,000 MG/100 ML BAG 100 MG IVPB (12:57)
[2024-07-19] MEDS: ACETAMINOPHEN ELIXIR 325 MG/10.15 ML UDC 650 MG PO ×2 (12:58→18:19)
--- NOTE | 2024-07-19 13:23 | PCDIET ---
Discussed patient with Camp Assistant today. Tube feeding recommendations: Vital AF 1.2 at 20 ml/hr advance by 4 hours to 60 ml/hr at this time. Providing 1584 kcal/99 gm protein/1071 ml water. Flush 30 ml q 4 hours. Will monitor every 3 days.
[2024-07-19] MEDS: LACTATED RINGERS 1,000 ML 75 ML IV CONT (13:35)
[2024-07-19] MEDS: levETIRAcetam 1000MG/NACL100ML 1,000 MG/100 ML BAG 400 MG IVPB (14:06)
[2024-07-19] MEDS: VANCOMYCIN 1,500 MG/NS 500 ML 1,500 MG/500 ML BAG 250 MG IVPB (14:06)
[2024-07-19 14:12] LABS: Creatinine Urine 156.3 mg/dL; Potassium Urine Random 43.5 meq/L; Sodium Urine Random 22 meq/L
[2024-07-19 14:13] LABS: Ethanol < 10 mg/dL (<10)
--- NOTE | 2024-07-19 14:39 | WPDPROCEDUR ---
Procedures Intubation Intubation Date: 07/19/24 Intubation Time: 10:50 Consent: Consent was obtained from the spouse, Vanessa. A pre-procedural Time-Out was completed immediately before starting the procedure and confirmed: Patient Identification, Site, Procedure, Patient Position and the Availability of Requisite Equipment: Yes Sedative: etomidate Paralytic: rocuronium Laryngoscope: fiber optic video scope Assist device used: fiber optic device ET tube size: 8 Tube secured depth (cm): 25 Tube secured location: lips Tube placement confirmation: visualized tube passing through cords, equal breath sounds bilaterally, no breath sounds over epigastrium and confirmation by capnometry Patient tolerated procedure: well Intubation complications: none
--- NOTE | 2024-07-19 14:40 | WPDPROCEDUR ---
Procedures Central Line Placement Right IJ: Central Line Date: 07/19/24 Central Line Time: 11:10 Discussed w/ the patient/family/POA,the placement of a central venous catheter, including its clinical necessity/indication & associated potential risks, benifits and alternatives.: Yes The patient/family/POA understand(s) and acknowledge(s) the need to proceed with central venous catheter insertion as an important element of the patient's clinical management.: Yes Consent: I have discussed with the patient and/or surrogate, the non-emergent placement of a central venous catheter, including its clinical necessity/indication and associated potential risks and complications. The patient and/or surrogate understand(s) and acknowledge(s) the need to proceed with central venous catheter insertion as an important element of the patient's clinical management. Time Out Performed: Yes Patient Position: supine Patient placed on monitor/pulse ox: Yes Provider Prep: mask, sterile gown, sterile gloves, Max. sterile barrier precautions, cap and hand hygiene with conventional soap/water or alcohol based hand rub Central line prep: 2% Chlorhexidine scrub Amount of anesthesia used (ml): 3 Sterile US Technique with sterile gel/sterile probe covers: Yes Central line lumen inserted: triple Syriac: 7 Length (cm): 16 Depth of Insertion (cm): 16 Post Procedure: sutured in place, good blood return, all ports aspirated, flushed, capped, transparent dressing, hemostatic product, antimicrobial product, securement product and aseptic technique maintained throughout procedure Post procedure x-ray: tip of catheter in good position Patient tolerated procedure: well Complications: none
--- NOTE | 2024-07-19 14:41 | WPDPROCEDUR ---
Procedures Arterial Line Arterial Line Date: 07/19/24 Arterial Line Time: 14:30 Discussed with the patient/family/POA, the placement of an arterial catheter, including its clinical necessity/indication and associated potential risks, benefits and alternatives.: Yes Patient/family/POA and/or understands and acknowledges the need to proceed with the arterial catheter insertion as an important element of the patient's clinical management.: Yes Time Out Performed: Yes Patient Position: supine Academic Adviser Prep: sterile gown, sterile gloves, mask and hat Site: right and femoral Site Prep: chlorhexidine and sterile drape Skin Anesthesia: 1% lidocaine Technique used: ultrasound-guided Size (Gauge): 14 Length: 12 cm Closure/Dressing: suture, transparent dressing, hemostatic product and securement product Patient tolerated procedure: well Complications: none
[2024-07-19 14:47] LABS: Hepatitis B Surface Antigen Negative (Negative)
[2024-07-19] MEDS: CLOPIDOGREL BISULFATE 300 MG TABLET PO (14:47)
[2024-07-19 14:53] LABS: HAV RESULT Negative (Negative); Hepatitis B Core IgM Result Negative (Negative)
[2024-07-19] MEDS: LEVALBUTEROL NEB 1.25 MG/3 ML INHALATION ×2 (14:56→20:21)
[2024-07-19] MEDS: IPRATROPIUM BR 0.02% INH SOLN 0.5 MG/2.5 ML VIAL INHALATION ×2 (14:56→20:20)
[2024-07-19 14:57] LABS: Reflex Lactic Acid Yes or No Add Lactic
[2024-07-19] MEDS: VASOPRESSIN INJ 100 UNITS in DEXTROSE 5% 95 ML IV CONT (14:59)
[2024-07-19 15:05] LABS: Hepatitis C Virus Antibody Negative (Negative)
[2024-07-19] MEDS: PERFLUTREN LIPID MICROSPHERES 1.5 ML VIAL DILUTED TO 10 ML TOTAL VOLUME IV PUSH (15:05)
[2024-07-19] MEDS: CENTRAL LINE FLUSH 10 ML IV PUSH ×2 (15:22→21:05)
[2024-07-19 15:23] LABS: Troponin I 0.028 ng/mL (0.000-0.034)
[2024-07-19 15:30] LABS: MRSA (PCR) NOT DETECTED (NOT DETECTE)
[2024-07-19 15:41] LABS: Eosinophil Urine None Seen % (None Seen); Urine Eos QC 2nd Tech Confirmed
--- NOTE | 2024-07-19 15:42 | WPDNEURCNPN ---
Assessment and Plan Assessment and plan (1) Acute respiratory failure: Code(s): J96.00 - Acute respiratory failure, unspecified whether with hypoxia or hypercapnia Status: Acute Assessment and Plan: as discussed above the patient is on ventilator support and is requiring medications to keep his blood pressure up. (2) Cerebrovascular disease: Code(s): I67.9 - Cerebrovascular disease, unspecified Status: Acute Assessment and Plan: The patient Presented with aphasia , that does raise possibility of left hemispheric stroke the right-handed person. CT angiogram shows a 60-70% narrowing on the right and 50% narrowing in the left side in internal carotid artery. Right vertebral artery also shows occlusion for but reconstitution and hypoplastic vessel co however I believe that these are most likely coincidental finding. As review of the CT scan shows mild somewhat of a fullness in the left hemisphere at the level of the peduncle to thalamus compared to the right side where the sylvian fissure appears lot more prominent on the right the left side. When compared to the previous scan although somewhat similar pattern was noted but it appears somewhat more marked on this occasion which may raise possibility of left hemispheric stroke. This will require some follow-up. based upon the findings there does not appear to be a need for vascular intervention from neurologic point of view and hence. at this time I would suggest antiplatelets including aspirin and Plavix. Plavix can be given as a loading dose of 300 mg followed by 75 mg a day. High intensity statin either his simvastatin or atorvastatin can be given. Continue supportive care is recommended. If the patient stabilizes and improves MRI of the brain could useful. I noted that he has had some anticonvulsant also started although he has not had any clear-cut seizures but apparently there was some suspicion of that. Given his critical condition I would be in agreement with that. Thank you very much for allowing me to participate in the care of the patient. Consult date: 07/19/24 HPI: Kaden Abdul is a 73 year old male Currently intubated in intensive care unit. He was brought to the hospital with shortness of breath and was transfer to ICU due to deterioration in his condition. Prior to that he also had aphasia there is suspicion of a stroke. CT angiogram shows 6-70% narrowing in the right and around 50% narrowing of the left internal carotid artery and significant stenosis or occlusion of the right vertebral artery. The patient was also found to have significant tachycardia and has been evaluated by used car lot porter however the current evaluation did not show evidence for myocardial injury. The patient is on Versed and fentanyl and hence we cannot make a decision regarding neurological status reliably. Review of Systems Review of Systems: ROS unobtainable: Yes unobtainable due to medical condition and unobtainable due to mental status [facility] Past Medical History Medical History (Updated 07/19/24 @ 15:47 by Hakan Chamberlain MD) Arthritis Asthma Bimalleolar fracture of right ankle Cerebrovascular disease Depression Dizziness Fever History of adverse reaction to anesthesia HTN (hypertension) Right ankle injury Seasonal allergies Skin cancer Stroke Vertigo Vision abnormalities Surgical History Surgical History History of appendectomy Family History Family History Sibling Hypertension Family history of diabetes mellitus in first degree relative Father Family history of malignant neoplasm Social History Social History Smoking status: Former smoker Smoking end date: 10/30/11 Alcohol intake: current Drinks per week: 20 Substance use: unknown Substance use type: mar
--- NOTE | 2024-07-19 16:02 | IVDEFINITY ---
Prior to administration of IV Definity the patient was educated on the risks and benefits of the imaging enhancing agent including potential adverse side effects. The patient verbalized understanding. Allergies were verified. No exclusion criteria were identified and at least one of the following inclusion criteria were met: 1) physician request, 2) patient technically difficult to image (per the [place] [employer] guidelines of two or more segments not discernable within the apical view), or 3) questionable left ventricular function. ?
--- NOTE | 2024-07-19 16:17 | PM.IMHP ---
H&P: HPI History of Present Illness Date/Time: 07/19/24 16:17 Chief Complaint: SOB Review of Systems Review of Systems: Patient presented to the ER vis EMS for SOB. Patient was unable to provide HPI as the time of this encounter as he was in respiratory distress and about to be intubated. Per ER documentation, Family reported they initially went to an outside hospital for worsening shortness of breadth however due to long wait he went home. At about 6:00 p.m. yesterday while at home he started having expressive aphasia EMS was called out today also patient declined transportation to the hospital. At the time he was not having shortness of breath. EMS was called again for shortness of breath and the 2nd time he was transported to the ED for further evaluation and care. Has a history of COPD, was on 60% on room air by EMS I counseled was placed on CPAP and then transitioned to BiPAP in the ER. Patient was tachypneic and tachycardic at the time of this encounter the on thoughts was intubated by the guest services lead. ER evaluation at 2 4 temperature 102.1?, pulse 121, respiratory 20, saturating at 94% BiPAP. white count 14.4, creatinine 1.7, repeat 2.0, flu RST a COVID negative. Hepatitis viral panel negative. AST 1 3, repeat 73, ALT 51, repeat 38 alkaline phosphatase 172. NT proBNP 321. Troponin negative. Head CT showed a 6-70% stenosis of the proximal right internal carotid artery with additional sounds present of the distal right common carotid artery.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 with partial reconstitution at its midportion, versus severely hypoplastic right vertebral artery. CT chest and AP, T5 and L4 compression fracture age indeterminate, Bilateral nonobstructing nephrolithiasis, probable minimal subpleural reticular formation in the upper lobes consider and chronic interstitial Patient was promptly intubated in the ICU. Constitutional: Comments: Unable to do review of system due to respiratory distress. [facility] Past Medical History Medical History (Updated 07/19/24 @ 15:47 by Hakan Chamberlain MD) Arthritis Asthma Bimalleolar fracture of right ankle Cerebrovascular disease Depression Dizziness Fever History of adverse reaction to anesthesia HTN (hypertension) Right ankle injury Seasonal allergies Skin cancer Stroke Vertigo Vision abnormalities Surgical History Surgical History History of appendectomy Family History Family History Sibling Hypertension Family history of diabetes mellitus in first degree relative Father Family history of malignant neoplasm Social History Social History Smoking status: Former smoker Smoking end date: 10/30/11 Alcohol intake: current Drinks per week: 20 Substance use: unknown Substance use type: marijuana Living arrangements: with family Gender identity (if verbalized by the patient): Male Sexual Orientation (if Verbalized by the Patient): Straight or Heterosexual Spiritual care concerns: No Meds Home Medications and Allergies Home Medications Medication Instructions Recorded Confirmed Type duloxetine 60 mg capsule,delayed 60 mg PO BID 01/16/20 09/09/20 History release meloxicam 15 mg tablet 15 mg PO DAILY 01/16/20 09/09/20 History propranolol 40 mg tablet 20 mg PO BID 01/16/20 09/09/20 History rosuvastatin 10 mg tablet 10 mg PO QAM 01/16/20 09/09/20 History bacitracin 500 unit/gram topical 1 applic topical BID #14 grams 09/19/21 Rx ointment albuterol sulfate 2.5 mg/3 mL 2.5 mg inhalation Q6H PRN Wheezing 07/19/24 History (0.083 %) solution for nebulization albuterol sulfate 90 mcg/actuation inhalation 07/19/24 History aerosol inhaler aspirin 325 mg tablet 325 mg PO DAILY 07/19/24 History budesonide 160 mcg-glycopyr 9
[2024-07-19 17:12] LABS: Glucose Point of Care 109 mg/dl (65-105)
[2024-07-19 18:18] LABS: Lactic Acid 1.9 mmol/L (0.7-2.0)
[2024-07-19 18:19] LABS: Cholesterol 77 mg/dL (0-200); HDL Direct 39 mg/dL; Triglycerides 102 mg/dL (<150)
[2024-07-19 18:27] LABS: Hemoglobin A1C 5.7 % (<5.7)
[2024-07-19 18:53] LABS: Troponin I 0.036 ng/mL (0.000-0.034)
[2024-07-19 19:31] LABS: LDL Cholesterol Direct < 30 mg/dL
[2024-07-19] MEDS: NOREPINEPHRINE 8 MG/D5W 250 ML 8 MG/250 ML BAG 48.75 MG IV CONT (20:02)
[2024-07-19] MEDS: MINERAL OIL/WHITE PETROLATUM OINTMENT 1 APPLIC EACH EYE (20:03)
[2024-07-19] MEDS: levETIRAcetam 500MG/NACL 100ML 500 MG/100 ML BAG 400 MG IVPB (20:03)
--- NOTE | 2024-07-19 23:22 | PC.NURSE ---
Dr. Roa notified of patient's elevated heart rate of 135 and temperature of 102.7. Received orders for 5 mg IV push metoprolol x one dose and to apply the cooling blanket. Will continue to monitor.
[2024-07-19 23:23] LABS: Glucose Point of Care 124 mg/dl (65-105)
[2024-07-20] VITALS (77 sets, daily range): BP systolic 97–116; BP diastolic 59–90; PULSE 119–129; RESP 20–24; TEMP 36.6–39.1; O2SAT 91–100
[2024-07-20] MEDS: ACETAMINOPHEN ELIXIR 325 MG/10.15 ML UDC 650 MG PO (00:18)
[2024-07-20] MEDS: NOREPINEPHRINE 8 MG/D5W 250 ML 8 MG/250 ML BAG 28.13 MG IV CONT (02:09)
[2024-07-20] MEDS: LACTATED RINGERS 1,000 ML 75 ML IV CONT (02:10)
[2024-07-20] MEDS: LEVALBUTEROL NEB 1.25 MG/3 ML INHALATION ×4 (02:17→20:10)
[2024-07-20] MEDS: IPRATROPIUM BR 0.02% INH SOLN 0.5 MG/2.5 ML VIAL INHALATION ×4 (02:17→20:10)
[2024-07-20 05:00] LABS: Alveolar/Arterial O2 Gradient 314.5 mmHg; Base Excess ABG -6.7 mEq/l (+/-2.0); Carboxyhemoglobin 0.7 % THb (0-2.0); Device VENTILATOR; Fractional Inspired Oxygen 60 %; HCO3 ABG 18.3 mEq/l (22.0-26.0); Methemoglobin ABG 0.1 %THb (0-1.5); Oxygen Content ABG 18.3 %vol (16.0-22.0); Oxygen Saturation ABG 94.4 % (95.0-100.0); Oxyhemoglobin 94.3 % THb (90.0-100.0); PCO2 ABG 34.9 mmHg (35.0-45.0); PO2 ABG 74.9 mmHg (80.0-100.0); PO2 FiO2 Ratio Arterial Blood 1.25 %; Reduced Hemoglobin 4.9 %THb (0-5.0); Site Drawn ARTLINE; Total Hemoglobin 13.8 g/dL (12.0-18.0); pH ABG 7.337 (7.350-7.450)
[2024-07-20 05:01] LABS: Arterial Blood Gas PEEP 5 cmH2O; Arterial Blood Gas Tidal Volume 450 ml; Arterial Blood Gas Vent Mode CMV; Arterial Blood Gas Ventilator rate 20 /MIN
[2024-07-20 05:04] LABS: Hematocrit 40.7 % (42.0-52.0); Hemoglobin 13.5 g/dL (14.0-18.0); Mean Corpuscular HGB Conc 33.2 g/dl (32-36); Mean Corpuscular Hemoglobin 30.8 pg (26-34); Mean Corpuscular Volume 92.9 fl (80-100); Mean Platelet Volume 11.5 fl (7.4-10.4); Platelet Count Result 148 k/mm3 (150-375); Red Blood Count 4.38 M/mm3 (4.6-6.20); Red Cell Distribution Width 16.8 % (11.5-14.5); White Blood Count 16.1 K/mm3 (4.5-10.0)
[2024-07-20] MEDS: AZITHROMYCIN 500 MG/NS 250 ML 500 MG/250 ML BAG 250 MG IVPB (05:14)
[2024-07-20] MEDS: methylPREDNISolone SOD SUCC 125 MG VIAL 40 MG IV PUSH ×4 (05:14→23:39)
[2024-07-20] MEDS: CENTRAL LINE FLUSH 10 ML IV PUSH ×3 (05:15→20:15)
[2024-07-20 05:21] LABS: Alanine Aminotransferase 40 U/L (6-50); Albumin Level 2.9 g/dL (3.5-5.1); Alkaline Phosphatase 130 U/L (38-126); Anion Gap 15 mmol/L (4-12); Aspartate Amino Transferase 62 U/L (17-59); Blood Urea Nitrogen 42 mg/dL (9-20); Calcium 7.6 mg/dL (8.4-10.2); Carbon Dioxide 16 mmol/L (22-30); Chloride 95 mmol/L (98-107); Estimated CRCL calculation 31 ml/min; Estimated Glomerular Filt Rate 28; Glucose 121 mg/dL (65-110); Lactic Acid Reflex 2.5 mmol/L (0.7-2.0); Magnesium 1.8 mg/dL (1.6-2.3); Phosphorus 7.5 mg/dL (2.5-4.5); Potassium 4.5 mmol/L (3.4-5.0); Sodium 126 mmol/L (137-145)
[2024-07-20 05:51] LABS: Band Neutrophils Percent 22 % (0-6); Lymphocytes Absolute Manual 5.95 K/mm3 (1.1-4.5); Monocytes Percent Manual 23 % (3-9); Neutrophils Absolute Manual 6.44 K/mm3 (1.3-6.7); Neutrophils Percent Manual 18 % (46-73); Total Cells Counted 100
[2024-07-20 05:52] LABS: Anisocytosis 1+; Atypical Lymphocytes Present; Burr Cells 1+; Platelet Estimate Slightly Decreased (Adequate); Schistocytes None Seen; Smudge Cells PRESENT
--- NOTE | 2024-07-20 07:16 | PC.NURSE ---
Versed drip resumed per Dr. Roa due to patient having labored breathing on ventilator. Patient remains unarousable at this time to deep pain with no cough or gag reflex. Will continue to monitor.
[2024-07-20] MEDS: SODIUM BICARBONATE 8.4% 50 MEQ/50 ML SYRINGE 100 MEQ IV PUSH (07:44)
[2024-07-20 07:59] LABS: Reflex Lactic Acid Yes or No Add Lactic
--- NOTE | 2024-07-20 08:03 | WPDINTPN ---
Progress Note: A&P Assessment and Plan (1) Acute respiratory failure: Code(s): J96.00 - Acute respiratory failure, unspecified whether with hypoxia or hypercapnia Status: Acute Assessment and Plan: Acute respiratory failure likely related to pneumonia versus COPD exacerbation. -07/19: Intubated for impending respiratory failure as patient was tachypneic, tachycardic with severe mottling on bilateral lower extremities, obtunded on BiPAP -continue home Trelegy inhaler -continue bronchodilators -continue on Solu-Medrol -chest x-ray and ABGs reviewed, ventilator adjusted, - urine pneumococcal and Legionella antigen pending -sedated with Versed infusion for ventilator synchrony, maintain RASS of 0 TO -1. Daily Spontaneous breathing trials and spontaneous awakening trials (2) Shock: Code(s): R57.9 - Shock, unspecified Status: Acute Assessment and Plan: Hypotension, lactic acidosis, tachycardia, tachypnea, hyperbilirubinemia, acute kidney injury, mottling on lower extremities, fevers -patient seems to be hypovolemic, fluid-resuscitated -could be related to pneumonia, bacteremia -07/19: Blood cultures obtained and pending -07/19: Urine cultures obtained and -07/19: Sputum cultures will be obtained -07/19: Was started on azithromycin, ceftriaxone and vancomycin Patient continues to be febrile, right upper quadrant ultrasound shows gallbladder wall thickening and sludge, will do is discontinue ceftriaxone and add meropenem for Gram-negative and anaerobic coverage 07/19: Echocardiogram has been done, report pending (3) AMS (altered mental status): Code(s): R41.82 - Altered mental status, unspecified Status: Acute Assessment and Plan: Patient with altered mental status could be related to hypoxia. Urine drug screen was negative -patient also had some aphasia which could be secondary to a stroke/hypoxia -appreciate Neurology evaluation and recommendation, will continue Plavix, aspirin and statin -MRI been able 07/19: CTA neck 60-70% stenosis of the proximal right internal carotid artery with additional 70% stenosis of the distal right common carotid artery. 50% stenosis of the proximal left internal carotid artery. 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 with partial reconstitution at its midportion, versus severely hypoplastic right vertebral artery (4) Aphasia: Code(s): R47.01 - Aphasia Status: Acute Assessment and Plan: As above (5) COPD exacerbation: Code(s): J44.1 - Chronic obstructive pulmonary disease with (acute) exacerbation Status: Acute Assessment and Plan: Continue mechanical ventilation, bronchodilators and steroids (6) Pneumonia: Code(s): J18.9 - Pneumonia, unspecified organism Status: Acute Assessment and Plan: Continue antibiotics as above (7) NIKKO (acute kidney injury): Code(s): N17.9 - Acute kidney failure, unspecified Status: Acute Assessment and Plan: Baseline creatinine 1.30, -currently acute kidney injury with creatinine of 2.0 this admission -could be related to hypovolemia, infection, shock, hypoxia -CK levels within normal limits -urine lytes did not show prerenal picture, urine eosinophils were negative -07/20: Worsening renal function with acute kidney injury, metabolic acidosis, decreased urine output -consulted Nephrology -will stop LR fluids and start sodium bicarb infusion, will give bicarb of IV push -avoid nephrotoxic medications, will renally dose medications -07/19: Renal ultrasound: No abnormality seen (8) Hyperbilirubinemia: Code(s): E80.6 - Other disorders of bilirubin metabolism Status: Acute Assessment and Plan: Hyperbilirubinemia with transaminitis -likely related to shock, hypotension -07/19: Right upper quadrant ultrasound showed distended gallbladder with echogenic debris suggestive of sludge along with gal
--- NOTE | 2024-07-20 08:20 | ECG_ITS ---
Test Date: 2024-07-20 09:12:06 Measurements Intervals [place] Rate: 128 P: -12 DC: 108 QRS: -17 QRSD: 81 T: 58 QT: 317 QTc: 463 Interpretive Statements SINUS TACHYCARDIA LOW QRS VOLTAGE IN LIMB LEADS INFERIOR INFARCT, AGE INDETERMINATE BORDERLINE T WAVE ABNORMALITY- HIGH LATERAL LEADS BASELINE ARTIFACT- V4-V6 ABNORMAL ECG Compared to ECG 07/19/2024 15:29:26 NO SIGNIFICANT CHANGE Electronically Signed On 07-20-2024 10:02:55 CDT by Jefry Barragan D.O.
[2024-07-20] MEDS: ATORVASTATIN 40 MG TABLET PO (08:49)
[2024-07-20] MEDS: CLOPIDOGREL BISULFATE 75 MG TABLET PO (08:49)
[2024-07-20] MEDS: ASPIRIN 81 MG CHEWABLE TABLET PO (08:49)
[2024-07-20] MEDS: ENOXAPARIN 40 MG/0.4 ML SYRINGE SUB-Q (08:50)
[2024-07-20] MEDS: levETIRAcetam 500MG/NACL 100ML 500 MG/100 ML BAG 400 MG IVPB ×2 (08:50→20:10)
[2024-07-20] MEDS: PANTOPRAZOLE SODIUM IV 40 MG VIAL IV PUSH (08:50)
[2024-07-20] MEDS: MINERAL OIL/WHITE PETROLATUM OINTMENT 1 APPLIC EACH EYE ×2 (08:50→20:15)
[2024-07-20] MEDS: THIAMINE HCL 200 MG/2 ML VIAL IV PUSH (08:50)
[2024-07-20] MEDS: MEROPENEM 1 GM/NS 100 ML 1 GM/100 ML BAG IVPB ×2 (08:54→20:22)
[2024-07-20] MEDS: SODIUM BICARBONATE 8.4% 150 MEQ in DEXTROSE 5% 1,000 ML 950 ML 50 MEQ IV CONT (08:54)
[2024-07-20] MEDS: FOLIC ACID 1 MG/0.2 ML INJ IV PUSH (09:13)
[2024-07-20 09:19] LABS: Lactic Acid 2.9 mmol/L (0.7-2.0)
--- NOTE | 2024-07-20 12:02 | PM.IMPN ---
Progress Note: A&P Assessment and Plan (1) Acute respiratory failure: Code(s): J96.00 - Acute respiratory failure, unspecified whether with hypoxia or hypercapnia Status: Acute Assessment and Plan: Etiology unclear likely COPD versus pneumonia. CT chest did not show any pulmonary embolism, and no pneumonia however showed early changes of chronic interstitial disease continue monitor in sputum on blood cultures. Continue Rocephin and azithromycin, continue steroids and bronchodilators Patient is intubated, continue sedation protocol shortness vent management per cdl bulk driver. (2) Shock: Code(s): R57.9 - Shock, unspecified Status: Acute Assessment and Plan: Septic shock Patient is hypotensive needing pressors for blood pressure support likely from possible pneumonia at this time, r/o Cholecystitis/cholangitis continue pressors per cdl bulk driver monitor blood, sputum and urine cultures COntinue Meropenem and Flagyl and titrate pressors, continue tube feeds US abd showed gall bladder distension and debris which heightened suspicion of cholecystitis S/p Cholecystostomy with perc drainage ECHO pending patient still febrile, continue close monitoring (3) AMS (altered mental status): Code(s): R41.82 - Altered mental status, unspecified Status: Acute Assessment and Plan: Aphasia Rule out stroke Patient noted to be aphasic from 6:00 p.m. yesterday. echo, MRI brain , A1c, lipid profile CTA showed a significant right carotid stenosis 70% Aspirin, Crestor and Plavix. Neurology following. carotid artery stenosis, right Continue above care monitor (4) Aphasia: Code(s): R47.01 - Aphasia Status: Acute Assessment and Plan: As above (5) COPD exacerbation: Code(s): J44.1 - Chronic obstructive pulmonary disease with (acute) exacerbation Status: Acute Assessment and Plan: Continue mechanical ventilation, bronchodilators and steroids (6) Pneumonia: Code(s): J18.9 - Pneumonia, unspecified organism Status: Acute Assessment and Plan: Continue antibiotics as above (7) NIKKO (acute kidney injury): Code(s): N17.9 - Acute kidney failure, unspecified Status: Acute Assessment and Plan: Baseline creatinine 1.30, -currently acute kidney injury with creatinine of 2.0 this admission -could be related to hypovolemia, infection, shock, hypoxia -CK levels within normal limits -urine lytes did not show prerenal picture, urine eosinophils were negative -07/20: Worsening renal function with acute kidney injury, metabolic acidosis, decreased urine output cr 2.3 -consulted Nephrology -will stop LR fluids and start sodium bicarb infusion, will give bicarb of IV push -avoid nephrotoxic medications, will renally dose medications -07/19: Renal ultrasound: No abnormality seen (8) Hyperbilirubinemia: Code(s): E80.6 - Other disorders of bilirubin metabolism Status: Acute Assessment and Plan: Hyperbilirubinemia with transaminitis ?Cholecystitis -likely related to shock, hypotension -07/19: Right upper quadrant ultrasound showed distended gallbladder with echogenic debris suggestive of sludge along with gallbladder wall thickness, no evidence of intra or extrahepatic biliary dilatation. Common bile duct measures 5 mm in diameter which is within normal limits S/p cholecystostomy with perc drainage Surgery consulted Plan DVT prophylaxis: Lovenox Stress ulcer prophylaxis: Protonix Nutrition: Will start trickle tube feeds Lines: 07/19 -right IJ central line, right femoral arterial line Code Status: Modified code, no CPR Subjective Date/time seen: 07/20/24 12:02 Interval history: patient intubated and sedated US liver showed distended GB with sludge Review of Systems Review of Systems: ROS unobtainable: Yes unobtainable due to endotracheal tube and u
[2024-07-20 12:28] LABS: Glucose Point of Care 124 mg/dl (65-105)
--- NOTE | 2024-07-20 12:50 | PM.CNNEP ---
Assessment and Plan Assessment and plan (1) NIKKO (acute kidney injury): Code(s): N17.9 - Acute kidney failure, unspecified Status: Acute Assessment and Plan: The patient has acute kidney injury on top of chronic kidney disease. he had an ultrasound of the kidneys which showed no obstruction and normal size of the kidneys. He had urine electrolytes which show a urine sodium of only 22 consistent with pre renal azotemia probably related to his 3rd spacing due to the sepsis but he probably also has not eaten very well in the last 24hours because of his illness. Most likely this is related to his very low blood pressure, contrast, and sepsis. He is getting antibiotics for the sepsis. He has been getting IV fluids and is getting pressors for his low blood pressure and his systolic blood pressure has been good. Hopefully his renal function will improve in the next few days. He does not look volume overloaded point so he does not need diuretics. He has received a lot of IV fluids since admission and since his blood pressure is better . Other than giving him the bicarb I do not think we need any other IV fluids for his blood pressure and volume status. Will check more labs tomorrow. (2) Acute respiratory distress: Code(s): R06.03 - Acute respiratory distress Status: Acute Assessment and Plan: Patient is on the ventilator right now. He on 60% FiO2 and his oxygenation looks pretty good. (3) Shock: Code(s): R57.9 - Shock, unspecified Status: Acute Assessment and Plan: he is on norepinephrine And his blood pressure has improved. he was recently weaned from the vasopressin (4) Hyperbilirubinemia: Code(s): E80.6 - Other disorders of bilirubin metabolism Status: Acute Assessment and Plan: this has improved (5) Cerebrovascular disease: Code(s): I67.9 - Cerebrovascular disease, unspecified Status: Acute Assessment and Plan: neurology is on the case (6) Metabolic acidosis: Code(s): E87.20 - Acidosis, unspecified Status: Acute Assessment and Plan: his bicarbonate level has dropped since admission. This is partly due to his sepsis and partly due to the fluids. His lactic acid level is a little bit on the high side And is on the rise, as is the anion gap. The CO2 dropped from 05/18/2018 in the 1st few hours but in the last few hours it only dropped from 18-16 indicating that things are quite eating down. His pH on the blood gas shows adequate compensation. He is getting sodium bicarbonate IV at50cc an hour. Will follow this going forward. History of Present Illness Reason for Consult Consult date: 07/20/24 Chief Complaint Chief complaint: COPD/Pneumonia/CVA History of Present Illness Narrative: Kaden is a very pleasant 73-year-old gentleman who has normal underlying kidney function. He has multiple other medical problems including depression, hypertension, stroke, vertigo, arthritis, asthma. He was well until the day before admission when he developed shortness of breath. He went to the ER but the wait was too long so he went home. Then he developed expressive aphasia. After 2 more calls to 911 the patient eventually agreed to go to the ER at [facility]. Upon arrival the patient was alert but very short of breath. evaluation revealed a normal creatinine at 1st, acute respiratory failure, hypotension, leukocytosis, bandemia, hyperbilirubinemia, lactic acidosis, hyponatremia, and his respiratory status worsened so he ended up intubated in the ICU. He required pressors for his blood pressure. Creatinine has begun to rise so renal consultation was requested. History was obtained from the nurse and from the chart. Early this morning they were able to wean his vasopressin to off but he is still on norepinephrine. His urine is dark brown and low volume. He
[2024-07-20 13:58] LABS: Vancomycin Random 10.2 ug/mL (10-20)
--- NOTE | 2024-07-20 15:12 | WPDCN ---
Assessment and Plan Assessment and plan (1) Acute respiratory distress: Code(s): R06.03 - Acute respiratory distress Status: Acute Assessment and Plan: Patient is on a ventilator due to respiratory distress. This being managed by the public information officer. He appears to have sepsis is on pressors. He may have pulmonary etiology for his sepsis. (2) Abnormal gallbladder ultrasound: Code(s): R93.2 - Abnormal findings on diagnostic imaging of liver and biliary tract Status: Acute Assessment and Plan: Gallbladder is distended on ultrasound. Sludge is noted within the gallbladder. Unable to really tell whether he has acute cholecystitis by clinical examination since he is intubated and sedated. He is not a surgical candidate this time and I would recommend just decompress the gallbladder with a image guided percutaneous cholecystostomy tube by the radiologist to culture the bile and eliminate cholecystitis as a source of sepsis. Will follow peripherally but at the present time the patient really not a candidate for a cholecystectomy. HPI Data of Consult Date/Time: 07/20/24 15:12 Requesting Physician: Dianne Motta MD Primary Care Provider: Jennifer Ruth, PA Consult Narrative Reason for consult: Abnormal CT imaging of the gallbladder, sepsis Narrative: Kaden Abdul is a 73 year old male who admitted to the hospital with CHF exacerbation and possible pneumonia. He developed acute respiratory distress and was intubated in the intensive care unit. He remained septic on pressors. CT scan of the abdomen pelvis showed a dilated gallbladder with some edema of the gallbladder wall. It is thought that this could be a source of his sepsis I have been asked to render surgical opinion regarding his gallbladder. Review of Systems Review of Systems: Unable to obtain as the patient is intubated and sedated on a ventilator. [facility] Past Medical History Medical History Arthritis Asthma Bimalleolar fracture of right ankle Cerebrovascular disease Depression Dizziness Fever History of adverse reaction to anesthesia HTN (hypertension) Right ankle injury Seasonal allergies Skin cancer Stroke Vertigo Vision abnormalities Surgical History Surgical History History of appendectomy Family History Family History Sibling Hypertension Family history of diabetes mellitus in first degree relative Father Family history of malignant neoplasm Social History Social History Smoking status: Former smoker Smoking end date: 10/30/11 Alcohol intake: current Drinks per week: 20 Substance use: unknown Substance use type: marijuana Living arrangements: with family Gender identity (if verbalized by the patient): Male Sexual Orientation (if Verbalized by the Patient): Straight or Heterosexual Spiritual care concerns: No Meds Home Medications and Allergies Home Medications Medication Instructions Recorded Confirmed Type duloxetine 60 mg capsule,delayed 60 mg PO BID 01/16/20 07/19/24 History release propranolol 40 mg tablet 20 mg PO BID 01/16/20 07/19/24 History rosuvastatin 10 mg tablet 10 mg PO QAM 01/16/20 07/19/24 History acidophilus 100 million 1 cap PO DAILY 07/19/24 07/19/24 History cell-pectin, citrus 10 mg capsule albuterol sulfate 2.5 mg/3 mL 2.5 mg inhalation Q6H PRN Wheezing 07/19/24 07/19/24 History (0.083 %) solution for nebulization albuterol sulfate 90 mcg/actuation 2 puff inhalation Q6H PRN Wheezing 07/19/24 07/19/24 History aerosol inhaler aspirin 325 mg tablet 325 mg PO DAILY 07/19/24 07/19/24 History betamethasone dipropionate 0.05 % 1 applic topical BID PRN Rash 07/19/24 07/19/24 History topical ointment budesonide 160 mcg-glyc
[2024-07-20] MEDS: VANCOMYCIN 1,500 MG/NS 500 ML 1,500 MG/500 ML BAG 250 MG IVPB (16:13)
[2024-07-20] MEDS: NOREPINEPHRINE 8 MG/D5W 250 ML 8 MG/250 ML BAG 3.75 MG IV CONT (18:15)
[2024-07-20 18:21] LABS: Glucose Point of Care 125 mg/dl (65-105)
[2024-07-20] MEDS: METOPROLOL TARTRATE 25 MG TABLET PO (19:41)
[2024-07-20 23:30] LABS: Glucose Point of Care 119 mg/dl (65-105)
[2024-07-21] VITALS (54 sets, daily range): BP systolic 88–120; BP diastolic 61–87; PULSE 97–128; RESP 20–21; TEMP 36.6–38; O2SAT 90–95
[2024-07-21] MEDS: IPRATROPIUM BR 0.02% INH SOLN 0.5 MG/2.5 ML VIAL INHALATION ×4 (02:30→19:54)
[2024-07-21] MEDS: LEVALBUTEROL NEB 1.25 MG/3 ML INHALATION ×4 (02:30→19:55)
[2024-07-21 05:02] LABS: Alveolar/Arterial O2 Gradient 191.9 mmHg; Base Excess ABG -1.2 mEq/l (+/-2.0); Carboxyhemoglobin 0.4 % THb (0-2.0); HCO3 ABG 21.8 mEq/l (22.0-26.0); Methemoglobin ABG 0.1 %THb (0-1.5); Oxygen Content ABG 16.5 %vol (16.0-22.0); Oxygen Saturation ABG 91.3 % (95.0-100.0); Oxyhemoglobin 89.5 % THb (90.0-100.0); PCO2 ABG 31.7 mmHg (35.0-45.0); PO2 ABG 56.8 mmHg (80.0-100.0); PO2 FiO2 Ratio Arterial Blood 1.42 %; Total Hemoglobin 13.1 g/dL (12.0-18.0); pH ABG 7.456 (7.350-7.450)
[2024-07-21 05:04] LABS: Site Drawn ARTLINE
[2024-07-21 05:05] LABS: Device VENTILATOR
[2024-07-21 05:12] LABS: Fractional Inspired Oxygen 45 %
[2024-07-21 05:13] LABS: Arterial Blood Gas PEEP 5 cmH2O; Arterial Blood Gas Tidal Volume 450 ml; Arterial Blood Gas Vent Mode CMV; Arterial Blood Gas Ventilator rate 20 /MIN
[2024-07-21] MEDS: CENTRAL LINE FLUSH 10 ML IV PUSH ×3 (05:14→20:26)
[2024-07-21] MEDS: methylPREDNISolone SOD SUCC 125 MG VIAL 40 MG IV PUSH (05:14)
[2024-07-21] MEDS: AZITHROMYCIN 500 MG/NS 250 ML 500 MG/250 ML BAG 250 MG IVPB (05:25)
[2024-07-21 05:28] LABS: Hematocrit 36.7 % (42.0-52.0); Hemoglobin 12.2 g/dL (14.0-18.0); Mean Corpuscular HGB Conc 33.2 g/dl (32-36); Mean Corpuscular Hemoglobin 30.7 pg (26-34); Mean Corpuscular Volume 92.4 fl (80-100); Mean Platelet Volume 11.5 fl (7.4-10.4); Platelet Count Result 110 k/mm3 (150-375); Red Blood Count 3.97 M/mm3 (4.6-6.20); Red Cell Distribution Width 17.1 % (11.5-14.5); White Blood Count 16.5 K/mm3 (4.5-10.0)
[2024-07-21] MEDS: SODIUM BICARBONATE 8.4% 150 MEQ in DEXTROSE 5% 1,000 ML 950 ML 50 MEQ IV CONT (05:29)
[2024-07-21] MEDS: MIDAZOLAM 100MG/NS 100ML(*CRX) 100 MG/100 ML BAG IV CONT (05:39)
[2024-07-21 05:40] LABS: Lactic Acid Reflex 2.7 mmol/L (0.7-2.0)
[2024-07-21] MEDS: FENTANYL 2,500MCG/NS250ML(*CRX 2,500 MCG/250 ML BAG IV CONT (05:42)
[2024-07-21 05:47] LABS: Alanine Aminotransferase 33 U/L (6-50); Albumin Level 2.7 g/dL (3.5-5.1); Alkaline Phosphatase 126 U/L (38-126); Anion Gap 11 mmol/L (4-12); Aspartate Amino Transferase 39 U/L (17-59); Bilirubin,Total 0.7 mg/dL (0.2-1.3); Blood Urea Nitrogen 56 mg/dL (9-20); Calcium 7.2 mg/dL (8.4-10.2); Carbon Dioxide 26 mmol/L (22-30); Chloride 91 mmol/L (98-107); Estimated CRCL calculation 34 ml/min; Estimated Glomerular Filt Rate 31; Glucose 125 mg/dL (65-110); Magnesium 1.9 mg/dL (1.6-2.3); Phosphorus 4.9 mg/dL (2.5-4.5); Sodium 128 mmol/L (137-145)
[2024-07-21 05:57] LABS: Band Neutrophils Percent 15 % (0-6); Lymphocytes Absolute Manual 0.33 K/mm3 (1.1-4.5); Monocytes Absolute Manual 0.82 K/mm3 (0.1-0.90); Monocytes Percent Manual 5 % (3-9); Neutrophils Absolute Manual 15.34 K/mm3 (1.3-6.7); Neutrophils Percent Manual 78 % (46-73); Platelet Estimate Adequate (Adequate); Total Cells Counted 100
[2024-07-21 05:58] LABS: Anisocytosis 1+; Schistocytes None Seen
--- NOTE | 2024-07-21 07:57 | WPDINTPN ---
Progress Note: A&P Assessment and Plan (1) Acute respiratory failure: Code(s): J96.00 - Acute respiratory failure, unspecified whether with hypoxia or hypercapnia Status: Acute Assessment and Plan: Acute respiratory failure likely related to pneumonia versus COPD exacerbation. -07/19: Intubated for impending respiratory failure as patient was tachypneic, tachycardic with severe mottling on bilateral lower extremities, obtunded on BiPAP -continue home Trelegy inhaler -continue bronchodilators -chest x-ray and ABGs reviewed, will increase PEEP to 8 - urine pneumococcal and Legionella antigen pending -sedated with Versed infusion for ventilator synchrony, maintain RASS of 0 TO -1. Daily Spontaneous breathing trials and spontaneous awakening trials (2) Shock: Code(s): R57.9 - Shock, unspecified Status: Acute Assessment and Plan: Hypotension, lactic acidosis, tachycardia, tachypnea, hyperbilirubinemia, acute kidney injury, mottling on lower extremities, fevers -patient seems to be hypovolemic, fluid-resuscitated -could be related to pneumonia, bacteremia -07/19: Blood cultures negative so far -07/19: Urine cultures negative -07/19: Sputum cultures negative -07/19: Was started on azithromycin, ceftriaxone and vancomycin Patient continues to be febrile, right upper quadrant ultrasound shows gallbladder wall thickening and sludge, will do is discontinue ceftriaxone and add meropenem for Gram-negative and anaerobic coverage -continue azithromycin, vancomycin and meropenem 07/20: Gallbladder cultures pending 07/19: Echocardiogram Summary 1. Technically difficult exam would done with patient on mechanical ventilator support. 2. Definity contrast used to improve visualization. 3. Global left ventricular systolic function appears to be intact. EF 50-55% 4. No significant valvular dysfunction, mildly sclerotic aortic valve. 5. RVSP 18 mmHg (3) AMS (altered mental status): Code(s): R41.82 - Altered mental status, unspecified Status: Acute Assessment and Plan: Patient with altered mental status could be related to hypoxia. Urine drug screen was negative -patient also had some aphasia which could be secondary to a stroke/hypoxia -appreciate Neurology evaluation and recommendation, will continue Plavix, aspirin and statin -MRI when able -07/21: Patient did follows simple commands in lower extremities and open his eyes this morning 07/19: CTA neck 60-70% stenosis of the proximal right internal carotid artery with additional 70% stenosis of the distal right common carotid artery. 50% stenosis of the proximal left internal carotid artery. 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 with partial reconstitution at its midportion, versus severely hypoplastic right vertebral artery (4) Aphasia: Code(s): R47.01 - Aphasia Status: Acute Assessment and Plan: As above (5) COPD exacerbation: Code(s): J44.1 - Chronic obstructive pulmonary disease with (acute) exacerbation Status: Acute Assessment and Plan: Continue mechanical ventilation, bronchodilators and steroids (6) Pneumonia: Code(s): J18.9 - Pneumonia, unspecified organism Status: Acute Assessment and Plan: Continue antibiotics and steroids (7) NIKKO (acute kidney injury): Code(s): N17.9 - Acute kidney failure, unspecified Status: Acute Assessment and Plan: Baseline creatinine 1.30, -currently acute kidney injury with creatinine of 2.0 this admission -could be related to hypovolemia, infection, shock, hypoxia, contrast -CK levels within normal limits -urine lytes did not show prerenal picture, urine eosinophils were negative -07/20: Worsening renal function with acute kidney injury, metabolic acidosis, decreased urine output -appreciate Nephrology evaluation and recommendation -07/21: Will discontinue bicarb infusion, urin
[2024-07-21 08:25] LABS: Reflex Lactic Acid Yes or No Add Lactic
[2024-07-21] MEDS: ATORVASTATIN 40 MG TABLET PO (08:51)
[2024-07-21] MEDS: ENOXAPARIN 40 MG/0.4 ML SYRINGE SUB-Q (08:51)
[2024-07-21] MEDS: METOPROLOL TARTRATE 25 MG TABLET FEED TUBE ×2 (08:51→20:27)
[2024-07-21] MEDS: PANTOPRAZOLE SODIUM IV 40 MG VIAL IV PUSH (08:51)
[2024-07-21] MEDS: CLOPIDOGREL BISULFATE 75 MG TABLET PO (08:51)
[2024-07-21] MEDS: FOLIC ACID 1 MG/0.2 ML INJ IV PUSH (08:52)
[2024-07-21] MEDS: ASPIRIN 81 MG CHEWABLE TABLET PO (08:52)
[2024-07-21] MEDS: MEROPENEM 1 GM/NS 100 ML 1 GM/100 ML BAG IVPB ×2 (08:54→20:27)
[2024-07-21] MEDS: levETIRAcetam 500MG/NACL 100ML 500 MG/100 ML BAG 400 MG IVPB ×2 (08:54→20:27)
[2024-07-21] MEDS: THIAMINE HCL 200 MG/2 ML VIAL IV PUSH (08:55)
[2024-07-21] MEDS: MINERAL OIL/WHITE PETROLATUM OINTMENT 1 APPLIC EACH EYE ×2 (08:55→20:33)
[2024-07-21 09:20] LABS: Lactic Acid 2.6 mmol/L (0.7-2.0)
--- NOTE | 2024-07-21 09:37 | PM.PNNEP ---
Progress Note: A&P Assessment and Plan (1) NIKKO (acute kidney injury): Code(s): N17.9 - Acute kidney failure, unspecified Status: Acute Assessment and Plan: The patient has acute kidney injury on top of normal kidney function he had an ultrasound of the kidneys which showed no obstruction and normal size of the kidneys. He had urine electrolytes which show a urine sodium of only 22 consistent with pre renal azotemia. Most likely this is related to his very low blood pressure, contrast, dehydration on admission, and sepsis. He is getting antibiotics for the sepsis. he received large amounts of IV fluids early in the hospital stay lately he has been getting fluids just for medications and through the bicarb drip. His bicarb is improved to normal so he is now off the bicarb drip. He is on 50% FiO2. Chest x-ray shows atelectasis plus a marked elevation of the left hemidiaphragm. Because of his low blood pressure and the need for norepinephrine, will hold off on diuretics for now. I do not think we need any other IV fluids for his blood pressure and volume status. Will check more labs tomorrow and reassess his volume status. Discussed at length with Dr. Roa (2) Acute respiratory distress: Code(s): R06.03 - Acute respiratory distress Status: Acute Assessment and Plan: Patient is on the ventilator right now. He on 50% FiO2 and his oxygenation looks pretty good. (3) Shock: Code(s): R57.9 - Shock, unspecified Status: Acute Assessment and Plan: he is on norepinephrine And his blood pressure has improved. (4) Hyperbilirubinemia: Code(s): E80.6 - Other disorders of bilirubin metabolism Status: Acute Assessment and Plan: this has improved to normal (5) Cerebrovascular disease: Code(s): I67.9 - Cerebrovascular disease, unspecified Status: Acute Assessment and Plan: neurology is on the case (6) Metabolic acidosis: Code(s): E87.20 - Acidosis, unspecified Status: Acute Assessment and Plan: his bicarbonate level has improved to normal. His anion gap is normal but still slightly above his baseline of 9. There is a residual mild elevation of the lactic acid which explains the slightly high anion gap. Subjective Date/time seen: 07/21/24 09:37 Interval history: Kaden is intubated and sedated. Blood pressure seems fairly stable. He is still on a small dose of norepinephrine Review of Systems Cardiovascular: Cardiovascular: Reports no additional cardiovascular complaints Respiratory: Respiratory: Reports no additional respiratory complaints Gastrointestinal: Gastrointestinal: Reports no additional gastrointestinal complaints Genitourinary: Genitourinary: Reports no additional male genitourinary complaints Exam Narrative: WDWN gentleman intubated and sedate on the ventilator in NAD skin no rash head ncat lungs coarse breath sound bilaterally cor reg no rub abd BS+ nontender and soft ext trace to 1+ bilateral edema. Objective Data Vital Signs Vital Signs: Vital Signs - 24 hr 07/20/24 10:23 07/20/24 10:00 07/20/24 12:00 Temperature Pulse Rate 125 H 124 H 126 H Respiratory Rate Blood Pressure 112/82 115/89 Pulse Oximetry 98 Oxygen Delivery Mechanical Ventilation Fraction of Inspired Oxygen 50 07/20/24 10:00 07/20/24 12:00 07/20/24 10:00 Temperature Pulse Rate 124 H 125 H 124 H Respiratory Rate 20 20 20 Blood Pressure Pulse Oximetry Oxygen Delivery Fraction of Inspired Oxygen 07/20/24 12:00 07/20/24 10:00 07/20/24 12:00 Temperature Pulse Rate 125 H 124 H 124 H Respiratory Rate 20 Blood Pressure 112/82 115/89 Pulse Oximetry Oxygen Delivery Fraction of Inspired Oxygen 07/20/24 12:24 07/20/24 10:00 07/20/24 12:00 Temperature 98.7 F 98.7 F Pulse Rate 124 H 124 H 12
--- NOTE | 2024-07-21 10:50 | WPDPN ---
Progress Note: A&P Assessment and Plan (1) Abnormal gallbladder ultrasound: Code(s): R93.2 - Abnormal findings on diagnostic imaging of liver and biliary tract Status: Acute Assessment and Plan: Distended gallbladder with acute inflammatory changes versus edema from acute illness from other medical conditions. [facility] placed a percutaneous cholecystostomy tube to drain the gallbladder. Cultures on the bile are pending. Drain appears to be in good position and working well. Continue critical care management as per residential energy auditor. He is not a candidate for a cholecystectomy at this point. Will follow peripherally for the cholecystostomy tube. Subjective Date/time seen: 07/21/24 10:50 Interval history: Patient remains intubated sedated on the ventilator. As per ICU nurses he does wake up in have purposeful movement when the sedation is decreased. Not ready for weaning trials yet. Cholecystostomy tube no draining nonpurulent and non bloody bile. Exam GI: Other: Abdomen soft and minimally distended. Right upper quadrant cholecystostomy tube in place. Draining typical appearing nonpurulent bile. Unable to feel as much tenderness due to sedation. Objective Data Vital Signs Vital Signs: Vital Signs - 24 hr 07/20/24 12:00 07/20/24 12:00 07/20/24 12:00 Temperature Pulse Rate 126 H 125 H 125 H Respiratory Rate 20 20 Blood Pressure 115/89 Pulse Oximetry Oxygen Delivery Fraction of Inspired Oxygen 07/20/24 12:00 07/20/24 12:24 07/20/24 12:00 Temperature 37.1 C Pulse Rate 124 H 124 H 124 H Respiratory Rate 20 Blood Pressure 115/89 109/73 115/89 Pulse Oximetry 99 Oxygen Delivery Fraction of Inspired Oxygen 07/20/24 12:40 07/20/24 13:00 07/20/24 13:15 Temperature Pulse Rate 126 H 126 H 127 H Respiratory Rate Blood Pressure 106/84 109/88 107/86 Pulse Oximetry Oxygen Delivery Fraction of Inspired Oxygen 07/20/24 13:27 07/20/24 13:27 07/20/24 13:37 Temperature Pulse Rate 126 H 126 H 126 H Respiratory Rate 22 H 21 H Blood Pressure Pulse Oximetry 95 Oxygen Delivery Mechanical Ventilation Fraction of Inspired Oxygen 50 07/20/24 13:49 07/20/24 12:00 07/20/24 12:00 Temperature Pulse Rate 124 H Respiratory Rate Blood Pressure Pulse Oximetry 93 99 Oxygen Delivery Mechanical Ventilation Mechanical Ventilation Fraction of Inspired Oxygen 45 50 07/20/24 14:00 07/20/24 14:00 07/20/24 12:00 Temperature 36.9 C Pulse Rate 124 H 124 H Respiratory Rate 20 Blood Pressure 105/79 Pulse Oximetry 94 Oxygen Delivery Fraction of Inspired Oxygen 50 07/20/24 16:00 07/20/24 14:00 07/20/24 15:00 Temperature 36.6 C Pulse Rate 125 H 126 H 123 H Respiratory Rate 24 H Blood Pressure 100/59 L 105/82 100/83 Pulse Oximetry 92 Oxygen Delivery Fraction of Inspired Oxygen 07/20/24 16:00 07/20/24 14:00 07/20/24 16:00 Temperature Pulse Rate 123 H 126 H 124 H Respiratory Rate 20 20 Blood Pressure 100/59 L Pulse Oximetry Oxygen Delivery Fraction of Inspired Oxygen 07/20/24 13:00 07/20/24 15:00 07/20/24 16:00 Temperature Pulse Rate 128 H 123 H 124 H Respiratory Rate 23 H 21 H 20 Blood Pressure Pulse Oximetry Oxygen Delivery Fraction of Inspired Oxygen 07/20/24 16:00 07/20/24 16:00 07/20/24 16:00 Temperature Pulse Rate 126 H Respiratory Rate Blood Pressure Pulse Oximetry 92 Oxygen Delivery Mechanical Ventilation Fraction of Inspired Oxygen 45 45 07/20/24 17:00 07/20/24 17:37 07/20/24 18:00 Temperature 36.8 C Pulse Rate 124 H 124 H 124 H Respiratory Rate 21 H Blood Pressure 106/70 100/80 Pulse Oximetry 92 92 Oxygen Delivery Mechanical Ventilation Fraction of Inspired Oxygen 45 07/20/24 18:00 07/20/24 18:15 07/20/24 18:00 Temperature Pulse Rate 124 H 126 H 125 H Respiratory Rate 20 Blood Pr
[2024-07-21 12:38] LABS: Glucose Point of Care 126 mg/dl (65-105)
[2024-07-21] MEDS: HYDROCORTISONE SODIUM SUCCINATE 100 MG/2 ML VIAL IV PUSH ×2 (14:12→21:03)
[2024-07-21 15:00] LABS: Vancomycin Random 14.6 ug/mL (10-20)
[2024-07-21] MEDS: VANCOMYCIN 1,500 MG/NS 500 ML 1,500 MG/500 ML BAG 250 MG IVPB (16:00)
--- NOTE | 2024-07-21 16:09 | PM.IMPN ---
Progress Note: A&P Assessment and Plan (1) Acute respiratory failure: Code(s): J96.00 - Acute respiratory failure, unspecified whether with hypoxia or hypercapnia Status: Acute Assessment and Plan: Acute respiratory failure likely related to pneumonia versus COPD exacerbation. -07/19: Intubated for impending respiratory failure as patient was tachypneic, tachycardic with severe mottling on bilateral lower extremities, obtunded on BiPAP -continue home Trelegy inhaler -continue bronchodilators -chest x-ray and ABGs reviewed, will increase PEEP to 8 Continue sedation and vent management per motor vehicle field representative (2) Shock: Code(s): R57.9 - Shock, unspecified Status: Acute Assessment and Plan: continue titrating pressor support likely from possible pneumonia at this time, r/o Cholecystitis/cholangitis monitor blood, sputum, bile and urine cultures COntinue Meropenem, Azithromycin and Flagyl , continue tube feeds US abd showed gall bladder distension and debris which heightened suspicion of cholecystitis S/p Cholecystostomy with perc drainage ECHO showed EF EF 50-55%, no significant valvular dysfunction Fever resolved more than 24 hours ago contiue monitoring in ICU (3) AMS (altered mental status): Code(s): R41.82 - Altered mental status, unspecified Status: Acute Assessment and Plan: Patient with altered mental status could be related to hypoxia. Urine drug screen was negative -patient also had some aphasia which could be secondary to a stroke/hypoxia -appreciate Neurology evaluation and recommendation, will continue Plavix, aspirin and statin -MRI when able -07/21: Patient did follows simple commands in lower extremities and open his eyes this morning 07/19: CTA neck 60-70% stenosis of the proximal right internal carotid artery with additional 70% stenosis of the distal right common carotid artery. 50% stenosis of the proximal left internal carotid artery. 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 with partial reconstitution at its midportion, versus severely hypoplastic right vertebral artery (4) Aphasia: Code(s): R47.01 - Aphasia Status: Acute Assessment and Plan: As above (5) COPD exacerbation: Code(s): J44.1 - Chronic obstructive pulmonary disease with (acute) exacerbation Status: Acute Assessment and Plan: Continue mechanical ventilation, bronchodilators and steroids (6) Pneumonia: Code(s): J18.9 - Pneumonia, unspecified organism Status: Acute Assessment and Plan: Continue antibiotics and steroids (7) NIKKO (acute kidney injury): Code(s): N17.9 - Acute kidney failure, unspecified Status: Acute Assessment and Plan: Baseline creatinine 1.30, -currently acute kidney injury with creatinine of 2.0 this admission -could be related to hypovolemia, infection, shock, hypoxia, contrast -CK levels within normal limits -urine lytes did not show prerenal picture, urine eosinophils were negative -07/20: Worsening renal function with acute kidney injury, metabolic acidosis, decreased urine output -appreciate Nephrology evaluation and recommendation -07/21: Will discontinue bicarb infusion, urine output has been better, creatinine is on the down trend, will continue to monitor discussed with Nephrology -avoid nephrotoxic medications, will renally dose medications -07/19: Renal ultrasound: No abnormality seen (8) Hyperbilirubinemia: Code(s): E80.6 - Other disorders of bilirubin metabolism Status: Acute Assessment and Plan: Hyperbilirubinemia with transaminitis -likely related to shock, hypotension -07/19: Right upper quadrant ultrasound showed distended gallbladder with echogenic debris suggestive of sludge along with gallbladder wall thickness, no evidence of intra or extrahepatic biliary dilatation. Common bile duct measures 5 mm in diameter which is within thee
[2024-07-21 17:51] LABS: Glucose Point of Care 156 mg/dl (65-105)
[2024-07-21] MEDS: ALTEPLASE 2 MG VIAL (CATHFLO) IV PUSH ×2 (22:13→22:30)
[2024-07-22] VITALS (37 sets, daily range): BP systolic 99–131; BP diastolic 65–85; PULSE 97–108; RESP 17–21; TEMP 36.6–37.1; O2SAT 88–97
[2024-07-22 00:08] LABS: Glucose Point of Care 167 mg/dl (65-105)
[2024-07-22] MEDS: IPRATROPIUM BR 0.02% INH SOLN 0.5 MG/2.5 ML VIAL INHALATION ×4 (01:40→20:14)
[2024-07-22] MEDS: LEVALBUTEROL NEB 1.25 MG/3 ML INHALATION ×4 (01:40→20:14)
[2024-07-22 04:49] LABS: Hematocrit 33.2 % (42.0-52.0); Immature Platelet Fraction Pct 7.8 % (0.9-11.2); Mean Corpuscular HGB Conc 33.1 g/dl (32-36); Mean Corpuscular Hemoglobin 30.7 pg (26-34); Mean Corpuscular Volume 92.7 fl (80-100); Mean Platelet Volume 11.6 fl (7.4-10.4); Platelet Count Result 73 k/mm3 (150-375); Red Blood Count 3.58 M/mm3 (4.6-6.20); Red Cell Distribution Width 16.5 % (11.5-14.5); White Blood Count 17.8 K/mm3 (4.5-10.0)
[2024-07-22 04:57] LABS: Ammonia < 9 umol/L (9-30)
[2024-07-22 04:58] LABS: Alanine Aminotransferase 25 U/L (6-50); Albumin Level 2.5 g/dL (3.5-5.1); Alkaline Phosphatase 134 U/L (38-126); Anion Gap 9 mmol/L (4-12); Aspartate Amino Transferase 25 U/L (17-59); Bilirubin,Total 0.5 mg/dL (0.2-1.3); Blood Urea Nitrogen 52 mg/dL (9-20); Calcium 7.8 mg/dL (8.4-10.2); Carbon Dioxide 29 mmol/L (22-30); Chloride 93 mmol/L (98-107); Estimated CRCL calculation 44 ml/min; Estimated Glomerular Filt Rate 43; Glucose 153 mg/dL (65-110); Lactic Acid Reflex 1.4 mmol/L (0.7-2.0); Lipase 29 U/L (23-300); Magnesium 2.2 mg/dL (1.6-2.3); Phosphorus 3.3 mg/dL (2.5-4.5); Potassium 3.6 mmol/L (3.4-5.0); Sodium 131 mmol/L (137-145)
[2024-07-22] MEDS: AZITHROMYCIN 500 MG/NS 250 ML 500 MG/250 ML BAG 250 MG IVPB (05:10)
[2024-07-22] MEDS: CENTRAL LINE FLUSH 10 ML IV PUSH ×3 (05:10→20:13)
[2024-07-22] MEDS: HYDROCORTISONE SODIUM SUCCINATE 100 MG/2 ML VIAL IV PUSH ×3 (05:13→21:01)
[2024-07-22 05:25] LABS: Band Neutrophils Percent 7 % (0-6); Large Platelets Present; Lymphocytes Absolute Manual 0.35 K/mm3 (1.1-4.5); Metamyelocytes Percent 1 %; Monocytes Absolute Manual 1.42 K/mm3 (0.1-0.90); Monocytes Percent Manual 8 % (3-9); Neutrophils Absolute Manual 15.84 K/mm3 (1.3-6.7); Neutrophils Percent Manual 82 % (46-73); Platelet Estimate Slightly Decreased (Adequate); Total Cells Counted 100
[2024-07-22 05:26] LABS: Anisocytosis 1+; Burr Cells 1+; Schistocytes None Seen
[2024-07-22 05:27] LABS: Smudge Cells PRESENT
[2024-07-22 05:33] LABS: Alveolar/Arterial O2 Gradient 173.3 mmHg; Base Excess ABG 4.2 mEq/l (+/-2.0); Carboxyhemoglobin 0.1 % THb (0-2.0); Fractional Inspired Oxygen 40 %; HCO3 ABG 27.4 mEq/l (22.0-26.0); Methemoglobin ABG 0.3 %THb (0-1.5); Oxygen Content ABG 15.4 %vol (16.0-22.0); Oxygen Saturation ABG 95.5 % (95.0-100.0); Oxyhemoglobin 94.3 % THb (90.0-100.0); PCO2 ABG 35.9 mmHg (35.0-45.0); PO2 ABG 70.6 mmHg (80.0-100.0); PO2 FiO2 Ratio Arterial Blood 1.76 %; Reduced Hemoglobin 5.3 %THb (0-5.0); Total Hemoglobin 11.6 g/dL (12.0-18.0)
[2024-07-22 05:34] LABS: Arterial Blood Gas PEEP 8 cmH2O; Arterial Blood Gas Vent Mode ASSIST CONTROL; Arterial Blood Gas Ventilator rate 20 /MIN; Device VENTILATOR; Site Drawn ARTLINE
[2024-07-22 05:35] LABS: Arterial Blood Gas Tidal Volume 450 ml
[2024-07-22] MEDS: THIAMINE HCL 200 MG/2 ML VIAL IV PUSH (09:07)
[2024-07-22] MEDS: METOPROLOL TARTRATE 25 MG TABLET FEED TUBE ×2 (09:07→20:13)
[2024-07-22] MEDS: ATORVASTATIN 40 MG TABLET PO (09:07)
[2024-07-22] MEDS: FOLIC ACID 1 MG/0.2 ML INJ IV PUSH (09:07)
[2024-07-22] MEDS: POTASSIUM CHLORIDE 20 MEQ PACKET (FOR LIQUID) 40 MEQ FEED TUBE (09:07)
[2024-07-22] MEDS: PANTOPRAZOLE SODIUM IV 40 MG VIAL IV PUSH (09:07)
[2024-07-22] MEDS: MEROPENEM 1 GM/NS 100 ML 1 GM/100 ML BAG IVPB ×2 (09:08→20:00)
[2024-07-22] MEDS: levETIRAcetam 500MG/NACL 100ML 500 MG/100 ML BAG 400 MG IVPB ×2 (09:12→20:02)
--- NOTE | 2024-07-22 09:12 | WPDINTPN ---
Progress Note: A&P Assessment and Plan (1) Acute respiratory failure: Code(s): J96.00 - Acute respiratory failure, unspecified whether with hypoxia or hypercapnia Status: Acute Assessment and Plan: Acute respiratory failure likely related to pneumonia versus COPD exacerbation. -07/19: Intubated for impending respiratory failure as patient was tachypneic, tachycardic with severe mottling on bilateral lower extremities, obtunded on BiPAP -continue bronchodilators -chest x-ray and ABGs reviewed -decrease tidal volume to 400 and rate to 18. -PCR for influenza RSV and COVID were negative - urine pneumococcal and Legionella antigen pending -sedated with Versed infusion for ventilator synchrony, maintain RASS of 0 TO -1. Daily sedation holidays -not ready to wean at this time (2) Shock: Code(s): R57.9 - Shock, unspecified Status: Acute Assessment and Plan: Hypotension, lactic acidosis, tachycardia, tachypnea, hyperbilirubinemia, acute kidney injury, mottling on lower extremities, fevers -patient seems to be hypovolemic, fluid-resuscitated -could be related to pneumonia, bacteremia and cholecystitis -07/19: Blood cultures negative so far -07/19: Urine cultures negative -07/19: Sputum cultures negative -07/19: Was started on azithromycin, ceftriaxone and vancomycin Patient continues to be febrile, right upper quadrant ultrasound shows gallbladder wall thickening and sludge, will do is discontinue ceftriaxone and add meropenem for Gram-negative and anaerobic coverage -continue azithromycin, vancomycin and meropenem 07/20: Gallbladder cultures growing Gram-positive cocci 07/19: Echocardiogram Summary 1. Technically difficult exam would done with patient on mechanical ventilator support. 2. Definity contrast used to improve visualization. 3. Global left ventricular systolic function appears to be intact. EF 50-55% 4. No significant valvular dysfunction, mildly sclerotic aortic valve. 5. RVSP 18 mmHg (3) AMS (altered mental status): Code(s): R41.82 - Altered mental status, unspecified Status: Acute Assessment and Plan: Patient with altered mental status could be related to hypoxia. Urine drug screen was negative -patient also had some aphasia which could be secondary to a stroke/hypoxia -appreciate Neurology evaluation and recommendation, will continue Plavix, aspirin and statin -MRI when able -07/21: Patient did follows simple commands in lower extremities and open his eyes this morning 07/19: CTA neck 60-70% stenosis of the proximal right internal carotid artery with additional 70% stenosis of the distal right common carotid artery. 50% stenosis of the proximal left internal carotid artery. 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 with partial reconstitution at its midportion, versus severely hypoplastic right vertebral artery (4) Aphasia: Code(s): R47.01 - Aphasia Status: Acute Assessment and Plan: As above (5) COPD exacerbation: Code(s): J44.1 - Chronic obstructive pulmonary disease with (acute) exacerbation Status: Acute Assessment and Plan: Continue mechanical ventilation, bronchodilators and steroids (6) Pneumonia: Code(s): J18.9 - Pneumonia, unspecified organism Status: Acute Assessment and Plan: Continue antibiotics and steroids (7) NIKKO (acute kidney injury): Code(s): N17.9 - Acute kidney failure, unspecified Status: Acute Assessment and Plan: Baseline creatinine 1.30, -currently acute kidney injury with creatinine of 2.0 this admission -could be related to hypovolemia, infection, shock, hypoxia, contrast -CK levels within normal limits -urine lytes did not show prerenal picture, urine eosinophils were negative -07/20: Worsening renal function with acute kidney injury, metabolic acidosis, decreased urine output -appreciate Nephrology evaluation and rec
[2024-07-22] MEDS: MINERAL OIL/WHITE PETROLATUM OINTMENT 1 APPLIC EACH EYE ×2 (09:15→20:13)
[2024-07-22] MEDS: ENOXAPARIN 40 MG/0.4 ML SYRINGE SUB-Q (09:27)
[2024-07-22] MEDS: ASPIRIN 81 MG CHEWABLE TABLET PO (09:28)
[2024-07-22] MEDS: CLOPIDOGREL BISULFATE 75 MG TABLET PO (09:28)
--- NOTE | 2024-07-22 09:45 | PM.PNNEP ---
Progress Note: A&P Assessment and Plan (1) NIKKO (acute kidney injury): Code(s): N17.9 - Acute kidney failure, unspecified Status: Acute Assessment and Plan: improvement noted suspect multifactorial etiology: hypotension/hemodynamic instability contrast exposure (CTA of head and neck + CT of c/A/P with IV contrast on 07/19/24) prerenal factors infection/sepsis evalutaion to date: renal ultrasound with obstruction urine electrolytes prerenal urine eosinophils negative CPK normal s/p aggressive IVF resuscitation follow trend of repeat labs and UOP (2) Septic shock: Code(s): A41.9 - Sepsis, unspecified organism; R65.21 - Severe sepsis with septic shock Status: Acute Assessment and Plan: as noted by hypotension, lactic acidosis, tachycardia, tachypnea, NIKKO/ARF, and mottling on lower extremities along fevers on presentation presumably secondary to pneumonia and/or cholecystitis s/p aggressive IVF resuscitation initially on vasopressor therapy but has since been weaned off follow culture data - results noted to date Echo results reviewed acidosis better s/p bicarb fluids on antibiotic therapy (3) Acute respiratory failure: Code(s): J96.00 - Acute respiratory failure, unspecified whether with hypoxia or hypercapnia Status: Acute Assessment and Plan: due to pneumonia versus COPD exacerbation versus combination of both intubated for impending respiratory failure on 07/19 (tachycardic + tachypenia + AMS on BiPAP + LE mottling) viral testing for influenza/RSV/COVID negative continue ventilator support at this time weaning once more stable (4) AMS (altered mental status): Code(s): R41.82 - Altered mental status, unspecified Status: Acute Assessment and Plan: as noted on presentation secondary to hypoxia versus sepsis versus CVA? CT of head/neck results noted Neurology following plan MRI of brain when able (5) COPD exacerbation: Code(s): J44.1 - Chronic obstructive pulmonary disease with (acute) exacerbation Status: Acute Assessment and Plan: likely playing a role with #3 on mechanical ventilation on bronchodilators and steroids (6) Pneumonia: Code(s): J18.9 - Pneumonia, unspecified organism Status: Acute Assessment and Plan: on ventilator support on antibiotic therapy (7) Hyperbilirubinemia: Code(s): E80.6 - Other disorders of bilirubin metabolism Status: Acute Assessment and Plan: in associatio with elevated LFTs presumably due to shock and hypotension RUQ ultrasound showed distended gallbladder with echogenic debris suggestive of sludge along with gallbladder wall thickness, no evidence of intra or extrahepatic biliary dilatation. Common bile duct measures 5 mm in diameter which is within normal limits (on 07/19) Surgery following s/p cholecystostomy tube/drain placement by IR (9.21) LFTs slowly improving (8) Anemia: Code(s): D64.9 - Anemia, unspecified Status: Acute Assessment and Plan: due to NIKKO and acute illness follow trend of H/H Will continue to follow. Subjective Date/time seen: 07/22/24 11:15 Interval history: Follow-up for acute kidney injury./acute renal failure. Chart reviewed -- assuming care from Dr. Miller; remains intubated/sedated and on mechanical ventilation; hemodynamically stable off vasopressor therapy at this time; renal function/creatinine better in association with reasonable urine output; no other acute issues noted. Exam Narrative: General: elderly but WD/WN male intubated/sedated and on mechanical ventilation Heart: normal S1 and S2; no rub Lungs: coarse breath sounds noted Abdomen: soft, nontender, nondistended, positive bowel sounds Extremities: no cyanosis or clubbing; trace - 1+edema Skin: improvement in color noted Objective Data Vital Signs V
--- NOTE | 2024-07-22 09:45 | P.PNNP_ITS ---
Progress Note: A&P Assessment and Plan (1) NIKKO (acute kidney injury): Code(s): N17.9 - Acute kidney failure, unspecified Status: Acute Assessment and Plan: * improvement noted * suspect multifactorial etiology: * hypotension/hemodynamic instability * contrast exposure (CTA of head and neck + CT of c/A/P with IV contrast on 07/19/24) * prerenal factors * infection/sepsis * evalutaion to date: * renal ultrasound with obstruction * urine electrolytes prerenal * urine eosinophils negative * CPK normal * s/p aggressive IVF resuscitation * follow trend of repeat labs and UOP (2) Septic shock: Code(s): A41.9 - Sepsis, unspecified organism; R65.21 - Severe sepsis with septic shock Status: Acute Assessment and Plan: * as noted by hypotension, lactic acidosis, tachycardia, tachypnea, NIKKO/ARF, and mottling on lower extremities along fevers on presentation * presumably secondary to pneumonia and/or cholecystitis * s/p aggressive IVF resuscitation * initially on vasopressor therapy but has since been weaned off * follow culture data - results noted to date * Echo results reviewed * acidosis better s/p bicarb fluids * on antibiotic therapy (3) Acute respiratory failure: Code(s): J96.00 - Acute respiratory failure, unspecified whether with hypoxia or hypercapnia Status: Acute Assessment and Plan: * due to pneumonia versus COPD exacerbation versus combination of both * intubated for impending respiratory failure on 07/19 (tachycardic + tachypenia + AMS on BiPAP + LE mottling) * viral testing for influenza/RSV/COVID negative * continue ventilator support at this time * weaning once more stable (4) AMS (altered mental status): Code(s): R41.82 - Altered mental status, unspecified Status: Acute Assessment and Plan: * as noted on presentation * secondary to hypoxia versus sepsis versus CVA? * CT of head/neck results noted * Neurology following * plan MRI of brain when able (5) COPD exacerbation: Code(s): J44.1 - Chronic obstructive pulmonary disease with (acute) exacerbation Status: Acute Assessment and Plan: * likely playing a role with #3 * on mechanical ventilation * on bronchodilators and steroids (6) Pneumonia: Code(s): J18.9 - Pneumonia, unspecified organism Status: Acute Assessment and Plan: * on ventilator support * on antibiotic therapy (7) Hyperbilirubinemia: Code(s): E80.6 - Other disorders of bilirubin metabolism Status: Acute Assessment and Plan: * in associatio with elevated LFTs * presumably due to shock and hypotension * RUQ ultrasound showed distended gallbladder with echogenic debris suggestive of sludge along with gallbladder wall thickness, no evidence of intra or extrahepatic biliary dilatation. Common bile duct measures 5 mm in diameter which is within normal limits (on 07/19) * Surgery following * s/p cholecystostomy tube/drain placement by IR (07.20) * LFTs slowly improving (8) Anemia: Code(s): D64.9 - Anemia, unspecified Status: Acute Assessment and Plan: * due to NIKKO and acute illness * follow trend of H/H Will continue to follow. Subjective Date/time seen: 07/22/24 11:15 Interval history: Follow-up for acute kidney injury./acute renal failure. Chart reviewed -- assuming care from Dr. Miller; remains intubated/sedated and on mechanical ventilation; hemodynamically stable
--- NOTE | 2024-07-22 10:08 | PCFNICU ---
ICU Rounding Note: Pt current nutrition is Vital AF 1.2 @ goal rate 50 ml/h. Provides 1375 kcal, 83 g protein, 892 ml free water Nutrition recommendation: Protein modular Prosource TF X1 once per day for additional 20 g protein to meet protein energy goals or Increase goal rate to 60 ml/hL 1584 kcal, 99 g protein, 1071 ml freewater Last recorded weight is 97.3 kg. Bowel Motility: +1 BM 07/20, May need bowel regimen Labs Reviewed: Hgb 11.0, Hct 33.2, Alb 2.5, Na 131, GFR 43, BUN 52, Cre 1.6, Glu 153. MAP 83 Meds Noted: Sedation with fentanyl, versed. No pressors. Skin: No skin issues Additional Notes: Continues on vent. MAPs are good. Tolerating TF well. Continue to monitor Following daily in ICU rounds. Will monitor weight, labs, skin, diet orders, meds every 3 days. .
--- NOTE | 2024-07-22 10:24 | PC.NURSE ---
[facility] transfer center exchanged call at [phone]. No bed available at this time. Last set of vitals and current patient condition discussed. Continue awaiting for bed to become available at [facility].
[2024-07-22 13:24] LABS: Glucose Point of Care 140 mg/dl (65-105)
--- NOTE | 2024-07-22 13:37 | PM.IMPN ---
Progress Note: A&P Assessment and Plan (1) Acute respiratory failure: Code(s): J96.00 - Acute respiratory failure, unspecified whether with hypoxia or hypercapnia Status: Acute Assessment and Plan: Acute respiratory failure likely related to pneumonia versus COPD exacerbation. -07/19: Intubated for impending respiratory failure as patient was tachypneic, tachycardic with severe mottling on bilateral lower extremities, obtunded on BiPAP -continue home Trelegy inhaler -continue bronchodilators Continue sedation and vent management per custodial engineer (2) Shock: Code(s): R57.9 - Shock, unspecified Status: Acute Assessment and Plan: Off pressor support likely from possible pneumonia at this time, r/o Cholecystitis/cholangitis monitor blood, sputum, bile and urine cultures Continue Meropenem, Azithromycin and Flagyl , continue tube feeds US abd showed gall bladder distension and debris which heightened suspicion of cholecystitis S/p Cholecystostomy with perc drainage ECHO showed EF EF 50-55%, no significant valvular dysfunction Fever resolved continue monitoring in ICU (3) AMS (altered mental status): Code(s): R41.82 - Altered mental status, unspecified Status: Acute Assessment and Plan: Patient with altered mental status could be related to hypoxia. Urine drug screen was negative -patient also had some aphasia which could be secondary to a stroke/hypoxia -appreciate Neurology evaluation and recommendation, will continue Plavix, aspirin and statin -MRI when able 07/19: CTA neck 60-70% stenosis of the proximal right internal carotid artery with additional 70% stenosis of the distal right common carotid artery. 50% stenosis of the proximal left internal carotid artery. 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 with partial reconstitution at its midportion, versus severely hypoplastic right vertebral artery (4) Aphasia: Code(s): R47.01 - Aphasia Status: Acute Assessment and Plan: As above (5) COPD exacerbation: Code(s): J44.1 - Chronic obstructive pulmonary disease with (acute) exacerbation Status: Acute Assessment and Plan: Continue mechanical ventilation, bronchodilators and steroids (6) Pneumonia: Code(s): J18.9 - Pneumonia, unspecified organism Status: Acute Assessment and Plan: Continue antibiotics and steroids (7) NIKKO (acute kidney injury): Code(s): N17.9 - Acute kidney failure, unspecified Status: Acute Assessment and Plan: Baseline creatinine 1.30, -currently acute kidney injury with creatinine of 2.0 this admission -could be related to hypovolemia, infection, shock, hypoxia, contrast -CK levels within normal limits -urine lytes did not show prerenal picture, urine eosinophils were negative -Renal ultrasound: No abnormality seen Creatinine 1.6, down from 2.3 (8) Hyperbilirubinemia: Code(s): E80.6 - Other disorders of bilirubin metabolism Status: Acute Assessment and Plan: Hyperbilirubinemia with transaminitis Possible Cholecystitis, US showed distended gallbladder with echogenic debris suggestive of sludeg LFTs and Bilirubin is now normal -patient evaluated by general surgery -07/20: Status post cholecystostomy with perc drain in place LFTs now within normal limits Perc drainage still in place Plan DVT prophylaxis: Lovenox Stress ulcer prophylaxis: Protonix Nutrition: Continue tube feeds Lines: 07/19 -right IJ central line, right femoral arterial line Code Status: Modified code, no CPR Subjective Date/time seen: 07/22/24 13:37 Interval history: Patient still vented and sedated Off pressors Review of Systems Review of Systems: ROS unobtainable: Yes unobtainable due to endotracheal tube and unobtainable due to mental status Exam Narrative: General: Intubated and sedated HEENT:? Pupils are equal and re
[2024-07-22 16:17] LABS: Vancomycin Random 15.8 ug/mL (10-20)
[2024-07-22] MEDS: VANCOMYCIN 1,500 MG/NS 500 ML 1,500 MG/500 ML BAG 250 MG IVPB (16:50)
[2024-07-22 17:53] LABS: Glucose Point of Care 162 mg/dl (65-105)
[2024-07-22 23:40] LABS: Glucose Point of Care 142 mg/dl (65-105)
[2024-07-23] VITALS (50 sets, daily range): BP systolic 100–152; BP diastolic 61–98; PULSE 89–128; RESP 15–25; TEMP 36.8–37.1; O2SAT 90–96
[2024-07-23] MEDS: LEVALBUTEROL NEB 1.25 MG/3 ML INHALATION ×4 (02:36→20:10)
[2024-07-23] MEDS: IPRATROPIUM BR 0.02% INH SOLN 0.5 MG/2.5 ML VIAL INHALATION ×4 (02:36→20:10)
[2024-07-23] MEDS: HYDROCORTISONE SODIUM SUCCINATE 100 MG/2 ML VIAL IV PUSH ×2 (05:31→11:16)
[2024-07-23] MEDS: AZITHROMYCIN 500 MG/NS 250 ML 500 MG/250 ML BAG 250 MG IVPB (05:31)
[2024-07-23] MEDS: CENTRAL LINE FLUSH 10 ML IV PUSH ×3 (05:31→22:01)
[2024-07-23 05:33] LABS: Alveolar/Arterial O2 Gradient 369.7 mmHg; Base Excess ABG 0.8 mEq/l (+/-2.0); Carboxyhemoglobin 0.3 % THb (0-2.0); Fractional Inspired Oxygen 65 %; HCO3 ABG 24.8 mEq/l (22.0-26.0); Methemoglobin ABG 0.1 %THb (0-1.5); Oxygen Content ABG 14.2 %vol (16.0-22.0); Oxygen Saturation ABG 88.9 % (95.0-100.0); PCO2 ABG 37.4 mmHg (35.0-45.0); PO2 ABG 53.1 mmHg (80.0-100.0); PO2 FiO2 Ratio Arterial Blood 0.82 %; Reduced Hemoglobin 12.1 %THb (0-5.0); Total Hemoglobin 11.5 g/dL (12.0-18.0)
[2024-07-23 05:36] LABS: Device VENTILATOR; Modified Allen's Test Pass; Oxyhemoglobin 87.5 % THb (90.0-100.0); Site Drawn RIGHT RADIAL
[2024-07-23 05:37] LABS: Hematocrit 33.3 % (42.0-52.0); Hemoglobin 10.8 g/dL (14.0-18.0); Mean Corpuscular HGB Conc 32.4 g/dl (32-36); Mean Corpuscular Hemoglobin 30.5 pg (26-34); Mean Corpuscular Volume 94.1 fl (80-100); Platelet Count Result 63 k/mm3 (150-375); Red Blood Count 3.54 M/mm3 (4.6-6.20); Red Cell Distribution Width 16.6 % (11.5-14.5); White Blood Count 18.9 K/mm3 (4.5-10.0)
[2024-07-23 05:37] LABS: Arterial Blood Gas PEEP 10 cmH2O; Arterial Blood Gas Tidal Volume 400 ml; Arterial Blood Gas Vent Mode CMV; Arterial Blood Gas Ventilator rate 18 /MIN
[2024-07-23] MEDS: FENTANYL 2,500MCG/NS250ML(*CRX 2,500 MCG/250 ML BAG IV CONT (05:37)
[2024-07-23 05:48] LABS: Alanine Aminotransferase 25 U/L (6-50); Albumin Level 2.8 g/dL (3.5-5.1); Alkaline Phosphatase 195 U/L (38-126); Aspartate Amino Transferase 31 U/L (17-59); Bilirubin,Total 0.5 mg/dL (0.2-1.3); Blood Urea Nitrogen 50 mg/dL (9-20); Carbon Dioxide 30 mmol/L (22-30); Estimated CRCL calculation 69 ml/min; Estimated Glomerular Filt Rate > 60; Glucose 148 mg/dL (65-110); Magnesium 2.4 mg/dL (1.6-2.3)
[2024-07-23 06:08] LABS: Band Neutrophils Percent 9 % (0-6); Lymphocytes Absolute Manual 1.32 K/mm3 (1.1-4.5); Monocytes Absolute Manual 0.37 K/mm3 (0.1-0.90); Monocytes Percent Manual 2 % (3-9); Neutrophils Absolute Manual 17.19 K/mm3 (1.3-6.7); Neutrophils Percent Manual 82 % (46-73); Total Cells Counted 100
[2024-07-23 06:09] LABS: Anisocytosis 1+; Platelet Estimate Decreased (Adequate); Schistocytes None Seen
[2024-07-23 06:28] LABS: Anion Gap 6 mmol/L (4-12); Chloride 96 mmol/L (98-107); Potassium 3.9 mmol/L (3.4-5.0); Sodium 132 mmol/L (137-145)
[2024-07-23] MEDS: CLOPIDOGREL BISULFATE 75 MG TABLET PO (08:18)
[2024-07-23] MEDS: ASPIRIN 81 MG CHEWABLE TABLET PO (08:18)
[2024-07-23] MEDS: THIAMINE HCL 200 MG/2 ML VIAL IV PUSH (08:18)
[2024-07-23] MEDS: FOLIC ACID 1 MG/0.2 ML INJ IV PUSH (08:18)
[2024-07-23] MEDS: METOPROLOL TARTRATE 25 MG TABLET FEED TUBE ×2 (08:18→20:42)
[2024-07-23] MEDS: ATORVASTATIN 40 MG TABLET PO (08:18)
[2024-07-23] MEDS: PANTOPRAZOLE SODIUM IV 40 MG VIAL IV PUSH (08:19)
[2024-07-23] MEDS: FUROSEMIDE INJ 40 MG/4 ML VIAL IV PUSH ×2 (08:19→17:27)
[2024-07-23] MEDS: MINERAL OIL/WHITE PETROLATUM OINTMENT 1 APPLIC EACH EYE ×2 (08:19→22:01)
[2024-07-23] MEDS: MEROPENEM 1 GM/NS 100 ML 1 GM/100 ML BAG IVPB ×2 (08:20→20:51)
[2024-07-23] MEDS: levETIRAcetam 500MG/NACL 100ML 500 MG/100 ML BAG 400 MG IVPB ×2 (08:20→20:42)
--- NOTE | 2024-07-23 08:43 | WPDINTPN ---
Progress Note: A&P Assessment and Plan (1) Acute respiratory failure: Code(s): J96.00 - Acute respiratory failure, unspecified whether with hypoxia or hypercapnia Status: Acute Assessment and Plan: Acute respiratory failure likely related to pneumonia, COPD exacerbation and pulmonary edema -07/19: Intubated for impending respiratory failure as patient was tachypneic, tachycardic with severe mottling on bilateral lower extremities, obtunded on BiPAP -continue bronchodilators - 07/23 increase FiO2 requirement and peep had to be increased to 10 and currently FiO2 70%. Patient is breathing with asynchrony due to lowering of sedation. Will increase the Versed to 3 milligrams/hour -chest x-ray and ABGs reviewed -will obtain CT chest to assess the size of pleural effusions -start diuretics -PCR for influenza RSV and COVID were negative - urine pneumococcal and Legionella antigen pending (2) Shock: Code(s): R57.9 - Shock, unspecified Status: Acute Assessment and Plan: Hypotension, lactic acidosis, tachycardia, tachypnea, hyperbilirubinemia, acute kidney injury, mottling on lower extremities, fevers -patient seems to be hypovolemic, fluid-resuscitated -could be related to pneumonia, bacteremia and cholecystitis -07/19: Blood cultures negative so far -07/19: Urine cultures negative -07/19: Sputum cultures negative -07/19: Was started on azithromycin, ceftriaxone and vancomycin Patient continues to be febrile, right upper quadrant ultrasound shows gallbladder wall thickening and sludge, will do is discontinue ceftriaxone and add meropenem for Gram-negative and anaerobic coverage -completed course of azithromycin -vancomycin and meropenem 07/20: Gallbladder cultures growing Enterococcus and Bacteroides fragilis 07/19: Echocardiogram Summary 1. Technically difficult exam would done with patient on mechanical ventilator support. 2. Definity contrast used to improve visualization. 3. Global left ventricular systolic function appears to be intact. EF 50-55% 4. No significant valvular dysfunction, mildly sclerotic aortic valve. 5. RVSP 18 mmHg (3) AMS (altered mental status): Code(s): R41.82 - Altered mental status, unspecified Status: Acute Assessment and Plan: Patient with altered mental status could be related to hypoxia. Urine drug screen was negative -patient also had some aphasia which could be secondary to a stroke/hypoxia -appreciate Neurology evaluation and recommendation, will continue Plavix, aspirin and statin -MRI when able -07/21: Patient did follows simple commands in lower extremities and open his eyes this morning 07/19: CTA neck 60-70% stenosis of the proximal right internal carotid artery with additional 70% stenosis of the distal right common carotid artery. 50% stenosis of the proximal left internal carotid artery. 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 with partial reconstitution at its midportion, versus severely hypoplastic right vertebral artery (4) Aphasia: Code(s): R47.01 - Aphasia Status: Acute Assessment and Plan: As above (5) COPD exacerbation: Code(s): J44.1 - Chronic obstructive pulmonary disease with (acute) exacerbation Status: Acute Assessment and Plan: Continue mechanical ventilation, bronchodilators and steroids (6) Pneumonia: Code(s): J18.9 - Pneumonia, unspecified organism Status: Acute Assessment and Plan: Continue antibiotics and steroids (7) NIKKO (acute kidney injury): Code(s): N17.9 - Acute kidney failure, unspecified Status: Acute Assessment and Plan: Baseline creatinine 1.30, -currently acute kidney injury with creatinine of 2.0 this admission -could be related to hypovolemia, infection, shock, hypoxia, contrast -CK levels within normal limits -urine lytes did not show prerenal picture, urine eosinophils were negative -
--- NOTE | 2024-07-23 10:01 | PM.PNNEP ---
Progress Note: A&P Assessment and Plan (1) NIKKO (acute kidney injury): Code(s): N17.9 - Acute kidney failure, unspecified Status: Acute Assessment and Plan: improvement noted if not back to baseline suspect multifactorial etiology: hypotension/hemodynamic instability contrast exposure (CTA of head and neck + CT of c/A/P with IV contrast on 07/19/24) prerenal factors infection/sepsis evaluation to date: renal ultrasound with obstruction urine electrolytes prerenal urine eosinophils negative CPK normal s/p aggressive IVF resuscitation follow trend of repeat labs and UOP (2) Septic shock: Code(s): A41.9 - Sepsis, unspecified organism; R65.21 - Severe sepsis with septic shock Status: Acute Assessment and Plan: as noted by hypotension, lactic acidosis, tachycardia, tachypnea, NIKKO/ARF, and mottling on lower extremities along fevers on presentation presumably secondary to pneumonia and/or cholecystitis s/p aggressive IVF resuscitation initially on vasopressor therapy but has since been weaned off follow culture data - results noted to date Echo results reviewed acidosis better s/p bicarb fluids on antibiotic therapy (3) Acute respiratory failure: Code(s): J96.00 - Acute respiratory failure, unspecified whether with hypoxia or hypercapnia Status: Acute Assessment and Plan: due to pneumonia versus COPD exacerbation versus combination of both intubated for impending respiratory failure on 07/19 (tachycardic + tachypenia + AMS on BiPAP + LE mottling) viral testing for influenza/RSV/COVID negative continue ventilator support at this time weaning once more stable (4) AMS (altered mental status): Code(s): R41.82 - Altered mental status, unspecified Status: Acute Assessment and Plan: as noted on presentation secondary to hypoxia versus sepsis versus CVA? CT of head/neck results noted Neurology following plan MRI of brain when able (5) COPD exacerbation: Code(s): J44.1 - Chronic obstructive pulmonary disease with (acute) exacerbation Status: Acute Assessment and Plan: likely playing a role with #3 on mechanical ventilation on bronchodilators and steroids (6) Pneumonia: Code(s): J18.9 - Pneumonia, unspecified organism Status: Acute Assessment and Plan: on ventilator support on antibiotic therapy (7) Hyperbilirubinemia: Code(s): E80.6 - Other disorders of bilirubin metabolism Status: Acute Assessment and Plan: in associatio with elevated LFTs presumably due to shock and hypotension RUQ ultrasound showed distended gallbladder with echogenic debris suggestive of sludge along with gallbladder wall thickness, no evidence of intra or extrahepatic biliary dilatation. Common bile duct measures 5 mm in diameter which is within normal limits (on 07/19) Surgery following s/p cholecystostomy tube/drain placement by IR (9.21) LFTs slowly improving (8) Anemia: Code(s): D64.9 - Anemia, unspecified Status: Acute Assessment and Plan: due to NIKKO and acute illness follow trend of H/H Not much else to add -- will continue to follow intermittently. Subjective Date/time seen: 07/23/24 10:01 Interval history: Follow-up for acute kidney injury/acute renal failure. Renal function/creatinine has improved back to baseline if not better with acceptable urine output noted; remains intubated/sedated and on mechanical ventilation; remains hemodynamically stable off vasopressor therapy; no other issues/events overnight or earlier this morning. Exam Narrative: General: elderly but WD/WN male intubated/sedated and on mechanical ventilation Heart: normal S1 and S2; no rub Lungs: coarse breath sounds noted Abdomen: soft, nontender, nondistended, positive bowel sounds Extremities: no cyanosis or clubbing; trace - 1+ edema Skin
--- NOTE | 2024-07-23 10:01 | P.PNNP_ITS ---
Progress Note: A&P Assessment and Plan (1) NIKKO (acute kidney injury): Code(s): N17.9 - Acute kidney failure, unspecified Status: Acute Assessment and Plan: * improvement noted if not back to baseline * suspect multifactorial etiology: * hypotension/hemodynamic instability * contrast exposure (CTA of head and neck + CT of c/A/P with IV contrast on 07/19/24) * prerenal factors * infection/sepsis * evaluation to date: * renal ultrasound with obstruction * urine electrolytes prerenal * urine eosinophils negative * CPK normal * s/p aggressive IVF resuscitation * follow trend of repeat labs and UOP (2) Septic shock: Code(s): A41.9 - Sepsis, unspecified organism; R65.21 - Severe sepsis with septic shock Status: Acute Assessment and Plan: * as noted by hypotension, lactic acidosis, tachycardia, tachypnea, NIKKO/ARF, and mottling on lower extremities along fevers on presentation * presumably secondary to pneumonia and/or cholecystitis * s/p aggressive IVF resuscitation * initially on vasopressor therapy but has since been weaned off * follow culture data - results noted to date * Echo results reviewed * acidosis better s/p bicarb fluids * on antibiotic therapy (3) Acute respiratory failure: Code(s): J96.00 - Acute respiratory failure, unspecified whether with hypoxia or hypercapnia Status: Acute Assessment and Plan: * due to pneumonia versus COPD exacerbation versus combination of both * intubated for impending respiratory failure on 07/19 (tachycardic + tachypenia + AMS on BiPAP + LE mottling) * viral testing for influenza/RSV/COVID negative * continue ventilator support at this time * weaning once more stable (4) AMS (altered mental status): Code(s): R41.82 - Altered mental status, unspecified Status: Acute Assessment and Plan: * as noted on presentation * secondary to hypoxia versus sepsis versus CVA? * CT of head/neck results noted * Neurology following * plan MRI of brain when able (5) COPD exacerbation: Code(s): J44.1 - Chronic obstructive pulmonary disease with (acute) exacerbation Status: Acute Assessment and Plan: * likely playing a role with #3 * on mechanical ventilation * on bronchodilators and steroids (6) Pneumonia: Code(s): J18.9 - Pneumonia, unspecified organism Status: Acute Assessment and Plan: * on ventilator support * on antibiotic therapy (7) Hyperbilirubinemia: Code(s): E80.6 - Other disorders of bilirubin metabolism Status: Acute Assessment and Plan: * in associatio with elevated LFTs * presumably due to shock and hypotension * RUQ ultrasound showed distended gallbladder with echogenic debris suggestive of sludge along with gallbladder wall thickness, no evidence of intra or extrahepatic biliary dilatation. Common bile duct measures 5 mm in diameter which is within normal limits (on 07/19) * Surgery following * s/p cholecystostomy tube/drain placement by IR (07.20) * LFTs slowly improving (8) Anemia: Code(s): D64.9 - Anemia, unspecified Status: Acute Assessment and Plan: * due to NIKKO and acute illness * follow trend of H/H Not much else to add -- will continue to follow intermittently. Subjective Date/time seen: 07/23/24 10:01 Interval history: Follow-up for acute kidney injury/acute renal failure. Renal function/creatinine has improved back to baseline if not better wi
--- NOTE | 2024-07-23 11:10 | PCNFU ---
Nutrition Follow-Up Complete: Suboptimal Energy Intake as related to mechanical ventilation as evidenced by NPO. goal: Meet estimated nutritional needs. Patient is progressing towards goals. We will continue current goal. Pt current nutrition is Vital AF 12 at 50 ml/hr Nutrition recommendation: goal 60 ml/hr. Last recorded weight is 98.1 kg. Bowel Motility: Last reported BM 07/20 Labs Reviewed:Glu 148, ,Na 132, Hct 33.3,Hgb 10.8.Alb 2.8 Meds Noted:Versed, Fentanyl, Keppra, Folic Acid, Thiamine, Lopressor, Protonix Skin: WNL Additional Notes: Patient remains on mechanical vent. Tube feedings are being tolerated of Vital AF 1.2 at 50 ml/hr. Discussed in rounds orders are for 60 ml/hr. Plans for advancing tube feedings to goal rate today. Tube feedings at goal rate providing 1584 kcal/99 gm protein/1071 ml water. Flush 30 ml q 4 hours. Agree with diet orders. Will monitor weight, labs, skin, diet orders, meds every Monday and Monday.
[2024-07-23] MEDS: MIDAZOLAM HCL (*CRX) 2 MG/2 ML VIAL IV PUSH (11:16)
[2024-07-23 11:56] LABS: Glucose Point of Care 134 mg/dl (65-105)
[2024-07-23 17:25] LABS: Vancomycin Random 16.9 ug/mL (10-20)
[2024-07-23 17:38] LABS: Glucose Point of Care 146 mg/dl (65-105)
[2024-07-23] MEDS: VANCOMYCIN 1,500 MG/NS 500 ML 1,500 MG/500 ML BAG 250 MG IVPB (17:45)
--- NOTE | 2024-07-23 18:43 | WPDPN ---
Progress Note: A&P Assessment and Plan (1) Acute respiratory failure: Code(s): J96.00 - Acute respiratory failure, unspecified whether with hypoxia or hypercapnia Status: Acute Assessment and Plan: Acute respiratory failure likely related to pneumonia versus COPD exacerbation. -07/19: Intubated for impending respiratory failure as patient was tachypneic, tachycardic with severe mottling on bilateral lower extremities, obtunded on BiPAP -continue home Trelegy inhaler -continue bronchodilators Continue sedation and vent management per manhole builder (2) Shock: Code(s): R57.9 - Shock, unspecified Status: Acute Assessment and Plan: Off pressor support likely from possible pneumonia at this time, r/o Cholecystitis/cholangitis monitor blood, sputum, bile and urine cultures Continue Meropenem, Azithromycin and Flagyl , continue tube feeds US abd showed gall bladder distension and debris which heightened suspicion of cholecystitis S/p Cholecystostomy with perc drainage ECHO showed EF EF 50-55%, no significant valvular dysfunction Fever resolved continue monitoring in ICU (3) AMS (altered mental status): Code(s): R41.82 - Altered mental status, unspecified Status: Acute Assessment and Plan: Patient with altered mental status could be related to hypoxia. Urine drug screen was negative -patient also had some aphasia which could be secondary to a stroke/hypoxia -appreciate Neurology evaluation and recommendation, will continue Plavix, aspirin and statin -MRI when able 07/19: CTA neck 60-70% stenosis of the proximal right internal carotid artery with additional 70% stenosis of the distal right common carotid artery. 50% stenosis of the proximal left internal carotid artery. 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 with partial reconstitution at its midportion, versus severely hypoplastic right vertebral artery (4) Aphasia: Code(s): R47.01 - Aphasia Status: Acute Assessment and Plan: As above (5) COPD exacerbation: Code(s): J44.1 - Chronic obstructive pulmonary disease with (acute) exacerbation Status: Acute Assessment and Plan: Continue mechanical ventilation, bronchodilators and steroids (6) Pneumonia: Code(s): J18.9 - Pneumonia, unspecified organism Status: Acute Assessment and Plan: Continue antibiotics and steroids (7) NIKKO (acute kidney injury): Code(s): N17.9 - Acute kidney failure, unspecified Status: Acute Assessment and Plan: Baseline creatinine 1.30, -currently acute kidney injury with creatinine of 2.0 this admission -could be related to hypovolemia, infection, shock, hypoxia, contrast -CK levels within normal limits -urine lytes did not show prerenal picture, urine eosinophils were negative -Renal ultrasound: No abnormality seen Creatinine 1.6, down from 2.3 (8) Hyperbilirubinemia: Code(s): E80.6 - Other disorders of bilirubin metabolism Status: Acute Assessment and Plan: Hyperbilirubinemia with transaminitis Possible Cholecystitis, US showed distended gallbladder with echogenic debris suggestive of sludeg LFTs and Bilirubin is now normal -patient evaluated by general surgery -07/20: Status post cholecystostomy with perc drain in place LFTs now within normal limits Perc drainage still in place Plan DVT prophylaxis: Lovenox Stress ulcer prophylaxis: Protonix Nutrition: Continue tube feeds Lines: 07/19 -right IJ central line, right femoral arterial line Code Status: Modified code, no CPR Subjective Date/time seen: 07/23/24 18:43 Interval history: Acute respiratory failure likely related to pneumonia versus COPD exacerbation. -07/19: Intubated for impending respiratory failure as patient was tachypneic, tachycardic with severe mottling on bilateral lower extremities, obtunded on BiPAP -continue home Trelegy inhaler -kelsie
[2024-07-23 18:44] LABS: Pneumococcal Antigen Urine NOT DETECTED
[2024-07-23] MEDS: MIDAZOLAM 100MG/NS 100ML(*CRX) 100 MG/100 ML BAG IV CONT (23:46)
[2024-07-24] VITALS (46 sets, daily range): BP systolic 93–137; BP diastolic 66–82; PULSE 95–157; RESP 15–23; TEMP 36.7–38; O2SAT 93–98
[2024-07-24 00:22] LABS: Glucose Point of Care 154 mg/dl (65-105)
[2024-07-24] MEDS: LEVALBUTEROL NEB 1.25 MG/3 ML INHALATION ×4 (02:00→20:23)
[2024-07-24] MEDS: IPRATROPIUM BR 0.02% INH SOLN 0.5 MG/2.5 ML VIAL INHALATION ×4 (02:00→20:23)
[2024-07-24 05:13] LABS: Basophils Absolute Auto 0.1 K/mm3 (0.0-0.1); Basophils Percent Auto 0.3 % (0.2-1.2); Eosinophils Percent Auto 0.1 % (0-4.4); Hematocrit 31.7 % (42.0-52.0); Hemoglobin 10.2 g/dL (14.0-18.0); Immature Platelet Fraction Pct 14.2 % (0.9-11.2); Lymphocytes Absolute Auto 0.58 K/mm3 (0.9-3.2); Lymphocytes Percent Auto 3.9 % (18.3-44.2); Mean Corpuscular HGB Conc 32.2 g/dl (32-36); Mean Corpuscular Hemoglobin 30.1 pg (26-34); Mean Corpuscular Volume 93.5 fl (80-100); Mean Platelet Volume 12.2 fl (7.4-10.4); Monocytes Percent Auto 6.8 % (2.6-8.5); Neutrophils Absolute Auto 12.6 K/mm3 (1.3-6.7); Neutrophils Percent Auto 84.9 % (45.5-73.1); Platelet Count Result 82 k/mm3 (150-375); Red Blood Count 3.39 M/mm3 (4.6-6.20); Red Cell Distribution Width 16.5 % (11.5-14.5); White Blood Count 14.9 K/mm3 (4.5-10.0)
[2024-07-24 05:15] LABS: Alveolar/Arterial O2 Gradient 372.9 mmHg; Base Excess ABG 4.5 mEq/l (+/-2.0); Carboxyhemoglobin 0.3 % THb (0-2.0); Fractional Inspired Oxygen 70 %; HCO3 ABG 27.9 mEq/l (22.0-26.0); Methemoglobin ABG 0.1 %THb (0-1.5); Oxygen Content ABG 15.3 %vol (16.0-22.0); Oxygen Saturation ABG 97.2 % (95.0-100.0); Oxyhemoglobin 96.4 % THb (90.0-100.0); PCO2 ABG 37.3 mmHg (35.0-45.0); PO2 ABG 86.1 mmHg (80.0-100.0); PO2 FiO2 Ratio Arterial Blood 1.23 %; Reduced Hemoglobin 3.2 %THb (0-5.0); Total Hemoglobin 11.2 g/dL (12.0-18.0); pH ABG 7.492 (7.350-7.450)
[2024-07-24 05:17] LABS: Device VENTILATOR; Site Drawn ARTLINE
[2024-07-24 05:18] LABS: Arterial Blood Gas PEEP 10 cmH2O; Arterial Blood Gas Vent Mode CMV; Arterial Blood Gas Ventilator rate 18 /MIN
[2024-07-24 05:19] LABS: Arterial Blood Gas Tidal Volume 400 ml
[2024-07-24 05:41] LABS: Alanine Aminotransferase 33 U/L (6-50); Albumin Level 2.6 g/dL (3.5-5.1); Alkaline Phosphatase 265 U/L (38-126); Anion Gap 8 mmol/L (4-12); Aspartate Amino Transferase 36 U/L (17-59); Bilirubin,Total 0.4 mg/dL (0.2-1.3); Blood Urea Nitrogen 51 mg/dL (9-20); Calcium 8.2 mg/dL (8.4-10.2); Carbon Dioxide 31 mmol/L (22-30); Chloride 98 mmol/L (98-107); Estimated CRCL calculation 64 ml/min; Estimated Glomerular Filt Rate > 60; Glucose 118 mg/dL (65-110); Magnesium 2.1 mg/dL (1.6-2.3); Phosphorus 3.5 mg/dL (2.5-4.5); Sodium 137 mmol/L (137-145)
[2024-07-24] MEDS: CENTRAL LINE FLUSH 10 ML IV PUSH ×3 (05:56→22:26)
[2024-07-24 07:37] LABS: Potassium 3.1 mmol/L (3.4-5.0)
[2024-07-24] MEDS: ASPIRIN 81 MG CHEWABLE TABLET PO (08:01)
[2024-07-24] MEDS: METOPROLOL TARTRATE 25 MG TABLET FEED TUBE ×2 (08:01→20:47)
[2024-07-24] MEDS: FOLIC ACID 1 MG/0.2 ML INJ IV PUSH (08:01)
[2024-07-24] MEDS: FUROSEMIDE INJ 40 MG/4 ML VIAL IV PUSH ×2 (08:02→17:12)
[2024-07-24] MEDS: levETIRAcetam 500MG/NACL 100ML 500 MG/100 ML BAG 400 MG IVPB ×2 (08:02→20:50)
[2024-07-24] MEDS: ATORVASTATIN 40 MG TABLET PO (08:02)
[2024-07-24] MEDS: MEROPENEM 1 GM/NS 100 ML 1 GM/100 ML BAG IVPB ×3 (08:02→21:08)
[2024-07-24] MEDS: CLOPIDOGREL BISULFATE 75 MG TABLET PO (08:02)
[2024-07-24] MEDS: polyethylene glycoL 3350 17 GM POWD.PACK PO (08:03)
[2024-07-24] MEDS: THIAMINE HCL 200 MG/2 ML VIAL IV PUSH (08:03)
[2024-07-24] MEDS: PANTOPRAZOLE SODIUM IV 40 MG VIAL IV PUSH (08:03)
[2024-07-24] MEDS: MINERAL OIL/WHITE PETROLATUM OINTMENT 1 APPLIC EACH EYE ×2 (08:03→21:13)
--- NOTE | 2024-07-24 08:16 | WPDINTPN ---
Progress Note: A&P Assessment and Plan (1) Acute respiratory failure: Code(s): J96.00 - Acute respiratory failure, unspecified whether with hypoxia or hypercapnia Status: Acute Assessment and Plan: Acute respiratory failure likely related to pneumonia, COPD exacerbation and pulmonary edema -07/19: Intubated for impending respiratory failure as patient was tachypneic, tachycardic with severe mottling on bilateral lower extremities, obtunded on BiPAP -continue bronchodilators - 07/23 increase FiO2 requirement and peep had to be increased to 10 and currently FiO2 70%. Patient is breathing with asynchrony due to lowering of sedation. Will increase the Versed to 3 milligrams/hour -CT chest 07/23 IMPRESSION: 1. Mild pulmonary edema. 2. Small pleural effusions, left worse than right. 3. Collapse of right lung lower lobe, worse than expected for the size of the pleural effusion. -chest x-ray and ABGs reviewed -FiO2 remains at 70% and peep at 10 Consult pulmonary for evaluation for bronchoscopy -continue diuretics -start diuretics -PCR for influenza RSV and COVID were negative - urine pneumococcal negative and Legionella antigen pending (2) Shock: Code(s): R57.9 - Shock, unspecified Status: Acute Assessment and Plan: Hypotension, lactic acidosis, tachycardia, tachypnea, hyperbilirubinemia, acute kidney injury, mottling on lower extremities, fevers -patient seems to be hypovolemic, fluid-resuscitated -could be related to pneumonia, bacteremia and cholecystitis -07/19: Blood cultures negative so far -07/19: Urine cultures negative -07/19: Sputum cultures negative -07/19: Was started on azithromycin, ceftriaxone and vancomycin Patient continues to be febrile, right upper quadrant ultrasound shows gallbladder wall thickening and sludge, will do is discontinue ceftriaxone and add meropenem for Gram-negative and anaerobic coverage -completed course of azithromycin -vancomycin and meropenem 07/20: Gallbladder cultures growing Enterococcus and Bacteroides fragilis 07/19: Echocardiogram Summary 1. Technically difficult exam would done with patient on mechanical ventilator support. 2. Definity contrast used to improve visualization. 3. Global left ventricular systolic function appears to be intact. EF 50-55% 4. No significant valvular dysfunction, mildly sclerotic aortic valve. 5. RVSP 18 mmHg (3) AMS (altered mental status): Code(s): R41.82 - Altered mental status, unspecified Status: Acute Assessment and Plan: Patient with altered mental status could be related to hypoxia. Urine drug screen was negative -patient also had some aphasia which could be secondary to a stroke/hypoxia -appreciate Neurology evaluation and recommendation, will continue Plavix, aspirin and statin -MRI when able -07/21: Patient did follows simple commands in lower extremities and open his eyes this morning 07/19: CTA neck 60-70% stenosis of the proximal right internal carotid artery with additional 70% stenosis of the distal right common carotid artery. 50% stenosis of the proximal left internal carotid artery. 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 with partial reconstitution at its midportion, versus severely hypoplastic right vertebral artery (4) Aphasia: Code(s): R47.01 - Aphasia Status: Acute Assessment and Plan: As above (5) COPD exacerbation: Code(s): J44.1 - Chronic obstructive pulmonary disease with (acute) exacerbation Status: Acute Assessment and Plan: Continue mechanical ventilation, bronchodilators, off steroids now (6) Pneumonia: Code(s): J18.9 - Pneumonia, unspecified organism Status: Acute Assessment and Plan: Continue antibiotics as above (7) NIKKO (acute kidney injury): Code(s): N17.9 - Acute kidney failure, unspecified Status: Acute Assessment and Plan: Baseline creatinine 1
--- NOTE | 2024-07-24 09:07 | PM.CNPUL ---
Assessment and Plan Assessment and plan (1) Collapse of right lung: Code(s): J98.11 - Atelectasis Status: Acute Assessment and Plan: Patient intubated since 07/19/2024 initially with improved oxygenation and till 07/24/2024 with increasing oxygen requirements and a CT scan on 07/25 that demonstrates New right lower lobe collapse since CT scan on 07/19/2024. Suspect the patient has mucous retention and or plugging in the right lower lobe that has not responded to bronchodilators and aggressive suctioning with positioning of the left side down in the ICU. Plan: Will proceed with bronchoscopy. I discussed the risks and benefits with the Vanessa on the phone. Risks of infection, bleeding and pneumothorax discussed. gave consent and will proceed with procedure later today. Discussed with , bedside nurse and Dr. Wyatt History of Present Illness History of Present Illness Consult date: 07/24/24 Chief complaint: COPD/Pneumonia/CVA Narrative: 07/24/2024: This is a new pulmonary consult for right lower lobe lung collapse and bronchoscopy 73-year-old with a history of COPD, hypertension, CVA, vertigo, depression, alcohol dependence presented to the hospital on 07/19/2024 with shortness of breath. patient developed acute respiratory failure, hypotension and septic shock requiring pressors and intubation. Patient was treated for pneumonia, COPD exacerbation and cholecystitis and had a cholecystotomy tube placed on 07/20/2024. Patient had been improving and on 07/22/2024 was on 40% and 8 of PEEP. Over the last 48 hours patient's oxygen requirements increased and CT scan of the chest on 07/23/2024 demonstrated right lower lobe collapse, small bilateral pleural effusions and atelectasis of the left lower lobe. 07/24/2024. Currently patient is intubated on CMV 18, rest tidal volume 400, 70% oxygen, 10 of PEEP with peak airway pressures of 18 and saturations 98%. He is sedated with Versed 4 an hour and fentanyl 50 an hour. DATA Portable chest x-ray Comparison: 07/23/2024 Clinical History: Respiratory failure Findings: Endotracheal tube, NG tube, and right IJ line are in place. [id number] bilateral effusions are present with bibasilar pulmonary edema/atelectasis. Cardiomediastinal silhouette is stable. Chronic left rib fracture deformities are noted. Impression: Support tubes, as above. [id number] bilateral pleural effusions with bibasilar pulmonary edema/atelectasis. EXAMINATION:CT diagnostic chest wo con DATE: 07/23/2024 09:23 INDICATION: Respiratory failure. TECHNIQUE: Computed tomography (CT) of the chest was performed without intravenous contrast. Automated exposure control and iterative reconstruction technique were employed. The dose-length product (DLP) was 774.68 mGy-cm. COMPARISON: Chest CT 07/19/2024 FINDINGS: There are small pleural effusions, left worse than right. There is collapse of right lung lower lobe. There is passive atelectasis in left lower lobe and dependent left upper lobe. Calcified left lung nodules are consistent with old granulomatous disease. There is septal thickening at the lung apices, consistent with mild pulmonary edema. The endotracheal tube tip is in expected position in the trachea. The nasogastric tube tip is in the stomach. The heart size is normal. There are coronary artery calcifications. No pericardial effusion. Partially visualized is a cholecystostomy tube. There is thoracic dextroscoliosis and severe spondylosis. There is chronic height loss of multiple vertebral bodies. There is a compression fracture of T5 with 1/5 loss of height. IMPRESSION: 1. Mild pulmonary edema. 2. Small pleural effusions, left worse than right. 3. Collapse of right lung lower lobe, worse than expected for the size of the pleural effusion. 4. Subacute T5 compression fracture.
[2024-07-24] MEDS: LIDOCAINE HCL 2% LOCAL INJ 20 ML VIAL INFILTRATE (10:23)
--- NOTE | 2024-07-24 10:30 | P.OPB_ITS ---
Procedure Note - Brief Procedure Note - Brief Date of procedure: 07/24/24 mucoid pneumonia Procedure performed: Bronchoscopy Surgeon: Owen Rodriguez MD Description of procedure: After informed consent and a time-out the patient was given 2 ml of 2% lidocaine into existing ETT. Bronchoscope was inserted through the ET tube and inspection of the right lung was performed and all segments open. There were no endobronchial lesions. The mucosa appeared normal. There was no mucous plugging in right lower lobe. Scant secretions aspirated from right middle and lower lobes. The left lung was inspected and all segments patent with scant secretions of left lower lobe aspirated. Approximately 15 mL of bronchial washing was obtained and sent for bacterial cul ture At the end of the procedure the patient's FiO2 was return from 100% to 70% and his peak airway pressures were 21 with equal breath sounds bilaterally. Stat portable chest x-ray: EXAMINATION: XR chest 1V portable DATE: 07/24/2024 10:30 INDICATION: Respiratory failure post bronchoscopy TECHNIQUE: frontal view of the chest was obtained. COMPARISON: Chest radiograph dated 07/24/2024 FINDINGS: Endotracheal tube tip 7.5 cm above the severino. Nasogastric tube tip in proximal side port in the body the stomach. Dual-lumen right internal jugular central venous catheter tip at the caudal superior vena cava. Gradient of basilar predominant hazy airspace opacities in the left mid to lower and right lower lung zones consistent with small right and small to moderate-sized left p osterior layering pleural effusions. More dense airspace opacities at the left lung base could represent associated atelectasis or pneumonia. No pneumothorax. Heart size is normal. There is an additional catheter projecting over the right abdomen. Multiple old left-sided rib fractures. IMPRESSION: 1. Endotracheal tube tip 7.5 cm above the severino. Consider advancement by 4.5 cm. 2. Small right and small to moderate-sized left posterior layering pleural effusions with associated basilar atelectasis and/or pneumonia. Discussed with Dr. Wyatt and the . Estimated blood loss (mL): 0 Urine output (mL): 1,550 Complications: None Disposition: ICU
[2024-07-24] MEDS: POTASSIUM CHLORIDE 20 MEQ PACKET (FOR LIQUID) 40 MEQ FEED TUBE ×3 (10:31→20:49)
--- NOTE | 2024-07-24 10:51 | SUR.OPER ---
2 ml Lidocain 2% and 5 ml of normal saline used for bronchoscopy washing- 15 ml returned.
--- NOTE | 2024-07-24 11:10 | PCFNICU ---
ICU Rounding Note: Pt current nutrition is Vital AF 1.2 at 60 ml/hr. Last recorded weight is 99.5 kg, up from 98.1 kg on admit. Bowel Motility:+BM reported 07/20 Labs Reviewed:Glu 118, K 3.1,Alb 2.6 Meds Noted:Versed, Fentanyl, Miralax, Dulcolax Suppository, Protonix, Thiamine, Lasix. Skin: WNL Additional Notes: Patient remains on mechanical vent. Tube feedings are being tolerating and at goal rate. Patient having bronchoscopy today. Agree with diet orders. Following daily in ICU rounds. Will monitor weight, labs, skin, diet orders, meds every Monday and Monday.
[2024-07-24 11:30] LABS: Glucose Point of Care 105 mg/dl (65-105)
--- NOTE | 2024-07-24 12:06 | WPDPN ---
Progress Note: A&P Assessment and Plan (1) Acute respiratory failure: Code(s): J96.00 - Acute respiratory failure, unspecified whether with hypoxia or hypercapnia Status: Acute Assessment and Plan: Patient remains intubated sedated on the ventilator. Oxygen requirements had increased overnight. Patient had bronchoscopy today with out findings of any mucus plugging. Management as per pulmonary and sanforizer Services. (2) Acute cholecystitis: Code(s): K81.0 - Acute cholecystitis Status: Acute Assessment and Plan: Gallbladder has been drained with a percutaneous cholecystostomy tube. The bile does not appear to be infected however cultures of the bowel showed Enterococcus species and Bacteroides fragilis. Patient remains on IV antibiotics. Continue supportive management. Patient is not a surgical candidate this time for cholecystectomy. Subjective Date/time seen: 07/24/24 12:06 Interval history: Patient remains intubated sedated. Actually has had increase requirements on the ventilator. Still off pressors. He got a bronchoscopy today by pulmonary and no mucus plugging was noted. Bile from gallbladder drainage has cultured out the Bacteroides fragilis and Enterococcus susceptible to ampicillin and vancomycin. Right upper quadrant cholecystostomy tube in place. Draining appropriately. Exam GI: Other: Abdomen is soft and nondistended. Unable to engage the patient has any tenderness due to his sedated state. Right upper quadrant cholecystostomy tube site is dry and dressed. Drainage from the cholecystostomy tube is nonpurulent and non bloody bile. Objective Data Vital Signs Vital Signs: Vital Signs - 24 hr 07/23/24 12:09 07/23/24 12:36 07/23/24 14:00 Temperature Pulse Rate 100 101 H 99 Respiratory Rate 20 20 Blood Pressure Pulse Oximetry Oxygen Delivery Fraction of Inspired Oxygen 07/23/24 14:00 07/23/24 14:02 07/23/24 14:03 Temperature 36.8 C Pulse Rate 99 105 H 105 H Respiratory Rate 18 18 18 Blood Pressure 108/76 Pulse Oximetry 92 Oxygen Delivery Fraction of Inspired Oxygen 07/23/24 13:48 07/23/24 13:48 07/23/24 13:57 Temperature Pulse Rate 93 93 93 Respiratory Rate 19 19 Blood Pressure Pulse Oximetry 92 92 Oxygen Delivery Mechanical Ventilation Fraction of Inspired Oxygen 70 70 07/23/24 14:00 07/23/24 15:15 07/23/24 15:45 Temperature Pulse Rate 94 96 97 Respiratory Rate 22 H 19 20 Blood Pressure Pulse Oximetry Oxygen Delivery Fraction of Inspired Oxygen 07/23/24 16:00 07/23/24 16:18 07/23/24 16:19 Temperature 36.9 C Pulse Rate 98 101 H 103 H Respiratory Rate 20 21 H 21 H Blood Pressure 103/63 Pulse Oximetry 91 Oxygen Delivery Fraction of Inspired Oxygen 07/23/24 16:46 07/23/24 16:00 07/23/24 16:00 Temperature Pulse Rate 94 102 H 96 Respiratory Rate 18 18 Blood Pressure Pulse Oximetry 90 Oxygen Delivery Mechanical Ventilation Fraction of Inspired Oxygen 70 07/23/24 16:00 07/23/24 17:09 07/23/24 18:19 Temperature Pulse Rate 96 95 Respiratory Rate 19 Blood Pressure Pulse Oximetry 90 Oxygen Delivery Mechanical Ventilation Fraction of Inspired Oxygen 70 70 07/23/24 18:22 07/23/24 18:00 07/23/24 18:00 Temperature 36.9 C Pulse Rate 96 95 95 Respiratory Rate 18 18 Blood Pressure 100/61 Pulse Oximetry 91 Oxygen Delivery Fraction of Inspired Oxygen 07/23/24 19:33 07/23/24 19:37 07/23/24 19:39 Temperature Pulse Rate 100 100 Respiratory Rate 15 Blood Pressure Pulse Oximetry 93 Oxygen Delivery Mechanical Ventilation Fraction of Inspired Oxygen 70 70 07/23/24 20:00 07/23/24 20:15 07/23/24 20:15 Temperature 36.8 C Pulse Rate 93 101 H 101 H Respiratory Rate 18 21 H Blood Pressure 119/86 Pulse Oximetry 93 96 Oxygen Delivery Mechanical Ventilation Fraction of In
[2024-07-24] MEDS: MIDAZOLAM HCL (*CRX) 2 MG/2 ML VIAL IV PUSH (13:33)
[2024-07-24] MEDS: ACETAMINOPHEN ELIXIR 325 MG/10.15 ML UDC 650 MG PO ×2 (15:26→20:50)
[2024-07-24 16:28] LABS: Glucose Point of Care 118 mg/dl (65-105)
--- NOTE | 2024-07-24 18:13 | PM.IMPN ---
Progress Note: A&P Assessment and Plan (1) Acute respiratory failure: Code(s): J96.00 - Acute respiratory failure, unspecified whether with hypoxia or hypercapnia Status: Acute Assessment and Plan: Acute respiratory failure likely related to pneumonia versus COPD exacerbation. -07/19: Intubated for impending respiratory failure as patient was tachypneic, tachycardic with severe mottling on bilateral lower extremities, obtunded on BiPAP -continue home Trelegy inhaler -continue bronchodilators Continue sedation and vent management per handyman (2) Shock: Code(s): R57.9 - Shock, unspecified Status: Acute Assessment and Plan: Off pressor support likely from possible pneumonia at this time, r/o Cholecystitis/cholangitis monitor blood, sputum, bile and urine cultures Continue Meropenem, Azithromycin and Flagyl , continue tube feeds US abd showed gall bladder distension and debris which heightened suspicion of cholecystitis S/p Cholecystostomy with perc drainage ECHO showed EF EF 50-55%, no significant valvular dysfunction Fever resolved continue monitoring in ICU (3) AMS (altered mental status): Code(s): R41.82 - Altered mental status, unspecified Status: Acute Assessment and Plan: Patient with altered mental status could be related to hypoxia. Urine drug screen was negative -patient also had some aphasia which could be secondary to a stroke/hypoxia -appreciate Neurology evaluation and recommendation, will continue Plavix, aspirin and statin -MRI when able 07/19: CTA neck 60-70% stenosis of the proximal right internal carotid artery with additional 70% stenosis of the distal right common carotid artery. 50% stenosis of the proximal left internal carotid artery. 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 with partial reconstitution at its midportion, versus severely hypoplastic right vertebral artery (4) Aphasia: Code(s): R47.01 - Aphasia Status: Acute Assessment and Plan: As above (5) COPD exacerbation: Code(s): J44.1 - Chronic obstructive pulmonary disease with (acute) exacerbation Status: Acute Assessment and Plan: Continue mechanical ventilation, bronchodilators and steroids (6) Pneumonia: Code(s): J18.9 - Pneumonia, unspecified organism Status: Acute Assessment and Plan: Continue antibiotics and steroids (7) NIKKO (acute kidney injury): Code(s): N17.9 - Acute kidney failure, unspecified Status: Acute Assessment and Plan: Baseline creatinine 1.30, -currently acute kidney injury with creatinine of 2.0 this admission -could be related to hypovolemia, infection, shock, hypoxia, contrast -CK levels within normal limits -urine lytes did not show prerenal picture, urine eosinophils were negative -Renal ultrasound: No abnormality seen Creatinine 1.6, down from 2.3 (8) Hyperbilirubinemia: Code(s): E80.6 - Other disorders of bilirubin metabolism Status: Acute Assessment and Plan: Hyperbilirubinemia with transaminitis Possible Cholecystitis, US showed distended gallbladder with echogenic debris suggestive of sludeg LFTs and Bilirubin is now normal -patient evaluated by general surgery -07/20: Status post cholecystostomy with perc drain in place LFTs now within normal limits Perc drainage still in place Plan Acute respiratory failure likely related to pneumonia versus COPD exacerbation. -07/19: Intubated for impending respiratory failure as patient was tachypneic, tachycardic with severe mottling on bilateral lower extremities, obtunded on BiPAP -continue home Trelegy inhaler -continue bronchodilators Patient had bronchoscopy and there was no mucus plug. Does the concern for cholecystitis gallbladder was drained seen by general surgeon patient is not a candidate for cholecystectomy at the present time. Continue sedation and vent management per inte
[2024-07-24] MEDS: FENTANYL 2,500MCG/NS250ML(*CRX 2,500 MCG/250 ML BAG 7.5 MCG IV CONT (19:28)
[2024-07-25] VITALS (59 sets, daily range): BP systolic 68–138; BP diastolic 51–96; PULSE 101–135; RESP 14–23; TEMP 37.1–37.9; O2SAT 92–100
[2024-07-25] MEDS: MIDAZOLAM 100MG/NS 100ML(*CRX) 100 MG/100 ML BAG IV CONT
[2024-07-25 00:02] LABS: Glucose Point of Care 103 mg/dl (65-105)
[2024-07-25 00:48] LABS: Legionella pneumophila Ag Ur NOT DETECTED
[2024-07-25] MEDS: LEVALBUTEROL NEB 1.25 MG/3 ML INHALATION ×4 (01:04→20:08)
[2024-07-25] MEDS: IPRATROPIUM BR 0.02% INH SOLN 0.5 MG/2.5 ML VIAL INHALATION ×4 (01:04→20:08)
[2024-07-25 04:57] LABS: Alveolar/Arterial O2 Gradient 347.2 mmHg; Base Excess ABG 3.1 mEq/l (+/-2.0); Fractional Inspired Oxygen 70 %; HCO3 ABG 27.6 mEq/l (22.0-26.0); Oxygen Content ABG 15.9 %vol (16.0-22.0); Oxyhemoglobin 97.4 % THb (90.0-100.0); PO2 ABG 106.8 mmHg (80.0-100.0); PO2 FiO2 Ratio Arterial Blood 1.53 %; Total Hemoglobin 11.5 g/dL (12.0-18.0); pH ABG 7.436 (7.350-7.450)
[2024-07-25 05:03] LABS: Hematocrit 33.5 % (42.0-52.0); Hemoglobin 10.4 g/dL (14.0-18.0); Mean Corpuscular Hemoglobin 29.7 pg (26-34); Mean Corpuscular Volume 95.7 fl (80-100); Mean Platelet Volume 12.4 fl (7.4-10.4); Platelet Count Result 128 k/mm3 (150-375); Red Cell Distribution Width 17.3 % (11.5-14.5); White Blood Count 14.6 K/mm3 (4.5-10.0)
[2024-07-25 05:05] LABS: Arterial Blood Gas PEEP 10 cmH2O; Arterial Blood Gas Tidal Volume 400 ml; Arterial Blood Gas Vent Mode CMV; Arterial Blood Gas Ventilator rate 18 /MIN; Device VENTILATOR; Modified Allen's Test Pass; Site Drawn RIGHT RADIAL
[2024-07-25 05:13] LABS: Lactic Acid Reflex 0.9 mmol/L (0.7-2.0)
[2024-07-25 05:21] LABS: Alanine Aminotransferase 52 U/L (6-50); Albumin Level 2.7 g/dL (3.5-5.1); Alkaline Phosphatase 256 U/L (38-126); Anion Gap 3 mmol/L (4-12); Aspartate Amino Transferase 57 U/L (17-59); Bilirubin,Total 0.4 mg/dL (0.2-1.3); Blood Urea Nitrogen 49 mg/dL (9-20); Calcium 8.4 mg/dL (8.4-10.2); Carbon Dioxide 35 mmol/L (22-30); Chloride 104 mmol/L (98-107); Estimated CRCL calculation 77 ml/min; Estimated Glomerular Filt Rate > 60; Glucose 110 mg/dL (65-110); Phosphorus 4.3 mg/dL (2.5-4.5); Sodium 142 mmol/L (137-145)
[2024-07-25] MEDS: MEROPENEM 1 GM/NS 100 ML 1 GM/100 ML BAG IVPB ×3 (06:28→21:04)
[2024-07-25] MEDS: CENTRAL LINE FLUSH 10 ML IV PUSH ×3 (06:29→21:04)
[2024-07-25] MEDS: ASPIRIN 81 MG CHEWABLE TABLET PO (08:37)
[2024-07-25] MEDS: BISACODYL 10 MG SUPPOSITORY RECTAL (08:37)
[2024-07-25] MEDS: FUROSEMIDE INJ 40 MG/4 ML VIAL IV PUSH (08:37)
[2024-07-25] MEDS: THIAMINE HCL 200 MG/2 ML VIAL IV PUSH (08:37)
[2024-07-25] MEDS: PANTOPRAZOLE SODIUM IV 40 MG VIAL IV PUSH (08:37)
[2024-07-25] MEDS: METOPROLOL TARTRATE 25 MG TABLET FEED TUBE ×2 (08:37→20:46)
[2024-07-25] MEDS: MINERAL OIL/WHITE PETROLATUM OINTMENT 1 APPLIC EACH EYE ×2 (08:38→20:46)
[2024-07-25] MEDS: CLOPIDOGREL BISULFATE 75 MG TABLET PO (08:38)
[2024-07-25] MEDS: ATORVASTATIN 40 MG TABLET PO (08:38)
[2024-07-25] MEDS: polyethylene glycoL 3350 17 GM POWD.PACK PO (08:38)
[2024-07-25] MEDS: levETIRAcetam 500MG/NACL 100ML 500 MG/100 ML BAG 400 MG IVPB ×2 (08:38→20:44)
[2024-07-25] MEDS: FOLIC ACID 1 MG/0.2 ML INJ IV PUSH (08:40)
--- NOTE | 2024-07-25 10:04 | WPDINTPN ---
Progress Note: A&P Assessment and Plan (1) Acute respiratory failure: Code(s): J96.00 - Acute respiratory failure, unspecified whether with hypoxia or hypercapnia Status: Acute Assessment and Plan: Acute respiratory failure likely related to pneumonia, COPD exacerbation and pulmonary edema -07/19: Intubated for impending respiratory failure as patient was tachypneic, tachycardic with severe mottling on bilateral lower extremities, obtunded on BiPAP -continue bronchodilators - 07/23 increase FiO2 requirement and peep had to be increased to 10 and currently FiO2 70%. Patient is breathing with asynchrony due to lowering of sedation. Will increase the Versed to 3 milligrams/hour -CT chest 07/23 IMPRESSION: 1. Mild pulmonary edema. 2. Small pleural effusions, left worse than right. 3. Collapse of right lung lower lobe, worse than expected for the size of the pleural effusion. 07/24 had diagnostic and therapeutic bronchoscopy. Cultures pending -chest x-ray and ABGs reviewed. -advance ET tube by 2 cm -continue peep at 10 FiO2 weaned down to 50% -continue diuretics -PCR for influenza RSV and COVID were negative - urine pneumococcal negative and Legionella antigen negative (2) Shock: Code(s): R57.9 - Shock, unspecified Status: Acute Assessment and Plan: Hypotension, lactic acidosis, tachycardia, tachypnea, hyperbilirubinemia, acute kidney injury, mottling on lower extremities, fevers -patient seems to be hypovolemic, fluid-resuscitated -could be related to pneumonia, bacteremia and cholecystitis -07/19: Blood cultures negative so far -07/19: Urine cultures negative -07/19: Sputum cultures negative -07/19: Was started on azithromycin, ceftriaxone and vancomycin Patient continues to be febrile, right upper quadrant ultrasound shows gallbladder wall thickening and sludge, will do is discontinue ceftriaxone and add meropenem for Gram-negative and anaerobic coverage -completed course of azithromycin -vancomycin discontinued Continue meropenem 07/20: Gallbladder cultures growing Enterococcus and Bacteroides fragilis 07/19: Echocardiogram Summary 1. Technically difficult exam would done with patient on mechanical ventilator support. 2. Definity contrast used to improve visualization. 3. Global left ventricular systolic function appears to be intact. EF 50-55% 4. No significant valvular dysfunction, mildly sclerotic aortic valve. 5. RVSP 18 mmHg (3) AMS (altered mental status): Code(s): R41.82 - Altered mental status, unspecified Status: Acute Assessment and Plan: Patient with altered mental status could be related to hypoxia. Urine drug screen was negative -patient also had some aphasia which could be secondary to a stroke/hypoxia -appreciate Neurology evaluation and recommendation, will continue Plavix, aspirin and statin -MRI when able -07/21: Patient did follows simple commands in lower extremities and open his eyes this morning 07/19: CTA neck 60-70% stenosis of the proximal right internal carotid artery with additional 70% stenosis of the distal right common carotid artery. 50% stenosis of the proximal left internal carotid artery. 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 with partial reconstitution at its midportion, versus severely hypoplastic right vertebral artery (4) Aphasia: Code(s): R47.01 - Aphasia Status: Acute Assessment and Plan: As above (5) COPD exacerbation: Code(s): J44.1 - Chronic obstructive pulmonary disease with (acute) exacerbation Status: Acute Assessment and Plan: Continue mechanical ventilation, bronchodilators, off steroids now (6) Pneumonia: Code(s): J18.9 - Pneumonia, unspecified organism Status: Acute Assessment and Plan: Continue antibiotics as above (7) NIKKO (acute kidney injury): Code(s): N17.9 - Acute kidney failure, unspecified Status:
[2024-07-25] MEDS: dexmedeTOMIDine 400 MCG/100 ML 400 MCG/100 ML BAG IV CONT ×2 (10:06→20:58)
--- NOTE | 2024-07-25 11:37 | PCFNICU ---
ICU Rounding Note: Pt current nutrition is Tube feeding: Vital AF 1.2 @ goal rate 60 ml/h provides 1584 kcal, 99 g protein, 1070 ml free water. Flush 30 ml q 4 hours. Meeting about 100% EER and 85% estimated protein needs. Nutrition recommendation: No new nutrition recommendations. Agree with current tube feeding orders. Last recorded weight is 99.2 kg. Bowel Motility: +1 BM today 07/25/24 Labs Reviewed: Hgb 10.4, Hct 33.5, Alb 2.7, BUN 49 Meds Noted: Sedation with versed, fentanyl, precedex. Plavix, lovenox, protonix, meropenem, thiamine Skin: Perc drain for gallbladder Additional Notes: Continues on vent. Tolerating tube feedings. Having bowel movements. Following daily in ICU rounds. Will monitor weight, labs, skin, diet orders, meds every 3 days. .
[2024-07-25 12:22] LABS: Glucose Point of Care 117 mg/dl (65-105)
--- NOTE | 2024-07-25 15:41 | P.PN_ITS ---
Progress Note: A&P Assessment and Plan (1) Acute respiratory failure: Code(s): J96.00 - Acute respiratory failure, unspecified whether with hypoxia or hypercapnia Status: Acute Assessment and Plan: Acute respiratory failure likely related to pneumonia versus COPD exacerbation. -07/19: Intubated for impending respiratory failure as patient was tachypneic, tachycardic with severe mottling on bilateral lower extremities, obtunded on BiPAP -continue home Trelegy inhaler -continue bronchodilators Continue sedation and vent management per product manufacturing professional (2) Shock: Code(s): R57.9 - Shock, unspecified Status: Acute Assessment and Plan: Off pressor support likely from possible pneumonia at this time, r/o Cholecystitis/cholangitis monitor blood, sputum, bile and urine cultures Continue Meropenem, Azithromycin and Flagyl , continue tube feeds US abd showed gall bladder distension and debris which heightened suspicion of cholecystitis S/p Cholecystostomy with perc drainage ECHO showed EF EF 50-55%, no significant valvular dysfunction Fever resolved continue monitoring in ICU (3) AMS (altered mental status): Code(s): R41.82 - Altered mental status, unspecified Status: Acute Assessment and Plan: Patient with altered mental status could be related to hypoxia. Urine drug screen was negative -patient also had some aphasia which could be secondary to a stroke/hypoxia -appreciate Neurology evaluation and recommendation, will continue Plavix, aspirin and statin -MRI when able 07/19: CTA neck 60-70% stenosis of the proximal right internal carotid artery with additional 70% stenosis of the distal right common carotid artery. 50% stenosis of the proximal left internal carotid artery. 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 with partial reconstitution at its midportion, versus severely hypoplastic right vertebral artery (4) Aphasia: Code(s): R47.01 - Aphasia Status: Acute Assessment and Plan: As above (5) COPD exacerbation: Code(s): J44.1 - Chronic obstructive pulmonary disease with (acute) exacerbation Status: Acute Assessment and Plan: Continue mechanical ventilation, bronchodilators and steroids (6) Pneumonia: Code(s): J18.9 - Pneumonia, unspecified organism Status: Acute Assessment and Plan: Continue antibiotics and steroids (7) NIKKO (acute kidney injury): Code(s): N17.9 - Acute kidney failure, unspecified Status: Acute Assessment and Plan: Baseline creatinine 1.30, -currently acute kidney injury with creatinine of 2.0 this admission -could be related to hypovolemia, infection, shock, hypoxia, contrast -CK levels within normal limits -urine lytes did not show prerenal picture, urine eosinophils were negative -Renal ultrasound: No abnormality seen Creatinine 1.6, down from 2.3 (8) Hyperbilirubinemia: Code(s): E80.6 - Other disorders of bilirubin metabolism Status: Acute Assessment and Plan: Hyperbilirubinemia with transaminitis Possible Cholecystitis, US showed distended gallbladder with echogenic debris suggestive of sludeg LFTs and Bilirubin is now normal -patient evaluated by general surgery -07/20: Status post cholecystostomy with perc drain in place LFTs now within normal limits Perc drainage still in place Plan Acute respiratory failure likely related to pneumonia versus COPD exacerbation. -07/19: Intubated for impending respiratory failure as patient was tachypneic, tachycardic w
[2024-07-25] MEDS: acetaZOLAMIDE SODIUM FOR INJ 500 MG VIAL 250 MG IV PUSH (16:14)
[2024-07-25 16:33] LABS: Glucose Point of Care 127 mg/dl (65-105)
[2024-07-25] MEDS: FENTANYL 2,500MCG/NS250ML(*CRX 2,500 MCG/250 ML BAG 10 MCG IV CONT (18:49)
[2024-07-25] MEDS: ALBUMIN HUMAN 5% 250 ML IV CONT (20:45)
[2024-07-25] MEDS: ACETAMINOPHEN ELIXIR 325 MG/10.15 ML UDC 650 MG PO (20:46)
[2024-07-25 23:56] LABS: Glucose Point of Care 125 mg/dl (65-105)
[2024-07-26] VITALS (59 sets, daily range): BP systolic 69–140; BP diastolic 53–108; PULSE 93–127; RESP 17–36; TEMP 37–38.3; O2SAT 94–99
[2024-07-26] MEDS: IPRATROPIUM BR 0.02% INH SOLN 0.5 MG/2.5 ML VIAL INHALATION ×4 (02:02→20:02)
[2024-07-26] MEDS: LEVALBUTEROL NEB 1.25 MG/3 ML INHALATION ×4 (02:02→20:02)
[2024-07-26] MEDS: MEROPENEM 1 GM/NS 100 ML 1 GM/100 ML BAG IVPB ×3 (05:00→21:12)
[2024-07-26 05:42] LABS: Hematocrit 28.9 % (42.0-52.0); Mean Corpuscular HGB Conc 31.1 g/dl (32-36); Mean Corpuscular Hemoglobin 30.2 pg (26-34); Mean Platelet Volume 12.8 fl (7.4-10.4); Platelet Count Result 137 k/mm3 (150-375); Red Blood Count 2.98 M/mm3 (4.6-6.20); Red Cell Distribution Width 17.3 % (11.5-14.5); White Blood Count 14.2 K/mm3 (4.5-10.0)
[2024-07-26 05:43] LABS: Alveolar/Arterial O2 Gradient 195.8 mmHg; Base Excess ABG 7.4 mEq/l (+/-2.0); Fractional Inspired Oxygen 45 %; HCO3 ABG 31.1 mEq/l (22.0-26.0); Oxygen Content ABG 14.4 %vol (16.0-22.0); Oxygen Saturation ABG 96.6 % (95.0-100.0); Oxyhemoglobin 95.3 % THb (90.0-100.0); PCO2 ABG 40.3 mmHg (35.0-45.0); PO2 ABG 79.2 mmHg (80.0-100.0); PO2 FiO2 Ratio Arterial Blood 1.76 %; Total Hemoglobin 10.7 g/dL (12.0-18.0)
[2024-07-26 05:44] LABS: Device VENTILATOR; Modified Allen's Test Pass; Site Drawn RIGHT RADIAL; pH ABG 7.505 (7.350-7.450)
[2024-07-26 05:45] LABS: Arterial Blood Gas PEEP 10 cmH2O; Arterial Blood Gas Tidal Volume 400 ml; Arterial Blood Gas Vent Mode CMV; Arterial Blood Gas Ventilator rate 18 /MIN
[2024-07-26 05:47] LABS: Alanine Aminotransferase 48 U/L (6-50); Albumin Level 2.6 g/dL (3.5-5.1); Alkaline Phosphatase 196 U/L (38-126); Anion Gap 5 mmol/L (4-12); Aspartate Amino Transferase 44 U/L (17-59); Bilirubin,Total 0.4 mg/dL (0.2-1.3); Blood Urea Nitrogen 42 mg/dL (9-20); Calcium 8.4 mg/dL (8.4-10.2); Carbon Dioxide 33 mmol/L (22-30); Chloride 105 mmol/L (98-107); Estimated CRCL calculation 70 ml/min; Estimated Glomerular Filt Rate > 60; Glucose 127 mg/dL (65-110); Magnesium 1.8 mg/dL (1.6-2.3); Phosphorus 4.2 mg/dL (2.5-4.5); Potassium 3.4 mmol/L (3.4-5.0); Sodium 143 mmol/L (137-145)
[2024-07-26] MEDS: CENTRAL LINE FLUSH 10 ML IV PUSH ×3 (05:56→21:13)
[2024-07-26 06:01] LABS: Lactic Acid Reflex 0.9 mmol/L (0.7-2.0)
[2024-07-26] MEDS: ASPIRIN 81 MG CHEWABLE TABLET PO (07:28)
[2024-07-26] MEDS: dexmedeTOMIDine 400 MCG/100 ML 400 MCG/100 ML BAG 14.88 MCG IV CONT ×3 (07:29→19:57)
[2024-07-26] MEDS: PANTOPRAZOLE SODIUM IV 40 MG VIAL IV PUSH (08:03)
[2024-07-26] MEDS: CLOPIDOGREL BISULFATE 75 MG TABLET PO (08:03)
[2024-07-26] MEDS: THIAMINE HCL 200 MG/2 ML VIAL IV PUSH (08:03)
[2024-07-26] MEDS: polyethylene glycoL 3350 17 GM POWD.PACK PO (08:03)
[2024-07-26] MEDS: ATORVASTATIN 40 MG TABLET PO (08:03)
[2024-07-26] MEDS: MINERAL OIL/WHITE PETROLATUM OINTMENT 1 APPLIC EACH EYE ×2 (08:04→21:11)
[2024-07-26] MEDS: METOPROLOL TARTRATE 25 MG TABLET FEED TUBE ×2 (08:04→21:11)
[2024-07-26] MEDS: ENOXAPARIN 40 MG/0.4 ML SYRINGE SUB-Q (08:04)
[2024-07-26] MEDS: levETIRAcetam 500MG/NACL 100ML 500 MG/100 ML BAG 400 MG IVPB ×2 (08:05→21:12)
[2024-07-26] MEDS: PROPOFOL IV EMULSION 100 ML 8.97 MG IV CONT (08:10)
--- NOTE | 2024-07-26 08:10 | WPDINTPN ---
Progress Note: A&P Assessment and Plan (1) Acute respiratory failure: Code(s): J96.00 - Acute respiratory failure, unspecified whether with hypoxia or hypercapnia Status: Acute Assessment and Plan: Acute respiratory failure likely related to pneumonia, COPD exacerbation and pulmonary edema -07/19: Intubated for impending respiratory failure as patient was tachypneic, tachycardic with severe mottling on bilateral lower extremities, obtunded on BiPAP -continue bronchodilators - 07/23 increase FiO2 requirement and peep had to be increased to 10 and currently FiO2 70%. Patient is breathing with asynchrony due to lowering of sedation. Will increase the Versed to 3 milligrams/hour -CT chest 07/23 IMPRESSION: 1. Mild pulmonary edema. 2. Small pleural effusions, left worse than right. 3. Collapse of right lung lower lobe, worse than expected for the size of the pleural effusion. 07/24 had diagnostic and therapeutic bronchoscopy. Cultures pending -chest x-ray reviewed and shows improved -ABG reviewed -advance ET tube by 2 cm -I have decreased FiO2 to 40% and PEEP to 8 -continue diuretics but decrease dose -PCR for influenza RSV and COVID were negative - urine pneumococcal negative and Legionella antigen negative -currently sedated with fentanyl and Precedex. Will start propofol and try (2) Shock: Code(s): R57.9 - Shock, unspecified Status: Acute Assessment and Plan: Hypotension, lactic acidosis, tachycardia, tachypnea, hyperbilirubinemia, acute kidney injury, mottling on lower extremities, fevers -patient seems to be hypovolemic, fluid-resuscitated -could be related to pneumonia, bacteremia and cholecystitis -07/19: Blood cultures negative so far -07/19: Urine cultures negative -07/19: Sputum cultures negative -07/19: Was started on azithromycin, ceftriaxone and vancomycin Patient continues to be febrile, right upper quadrant ultrasound shows gallbladder wall thickening and sludge, will do is discontinue ceftriaxone and add meropenem for Gram-negative and anaerobic coverage -completed course of azithromycin -vancomycin discontinued Continue meropenem 07/20: Gallbladder cultures growing Enterococcus and Bacteroides fragilis 07/19: Echocardiogram Summary 1. Technically difficult exam would done with patient on mechanical ventilator support. 2. Definity contrast used to improve visualization. 3. Global left ventricular systolic function appears to be intact. EF 50-55% 4. No significant valvular dysfunction, mildly sclerotic aortic valve. 5. RVSP 18 mmHg (3) AMS (altered mental status): Code(s): R41.82 - Altered mental status, unspecified Status: Acute Assessment and Plan: Patient with altered mental status could be related to hypoxia. Urine drug screen was negative -patient also had some aphasia which could be secondary to a stroke/hypoxia -appreciate Neurology evaluation and recommendation, will continue Plavix, aspirin and statin - Patient did follows simple commands on loading sedation 07/19: CTA neck 60-70% stenosis of the proximal right internal carotid artery with additional 70% stenosis of the distal right common carotid artery. 50% stenosis of the proximal left internal carotid artery. 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
[2024-07-26] MEDS: POTASSIUM CHLORIDE 20 MEQ PACKET (FOR LIQUID) 40 MEQ FEED TUBE (08:38)
[2024-07-26 08:41] LABS: Triglycerides 131 mg/dL (<150)
[2024-07-26] MEDS: acetaZOLAMIDE SODIUM FOR INJ 500 MG VIAL 250 MG IV PUSH (09:07)
[2024-07-26] MEDS: FOLIC ACID 1 MG/0.2 ML INJ IV PUSH (09:16)
--- NOTE | 2024-07-26 10:43 | PCNFU ---
Nutrition Follow-Up Complete: Suboptimal Energy Intake as related to mechanical ventilation as evidenced by NPO. goal: Meet estimated nutritional needs. Patient is progressing towards goal. We will continue current goal. Pt current nutrition is Vital AF 1.2 at 60 ml/hr. Last recorded weight is 99.7 kg, up from 98.1 kg on admit. Bowel Motility: +BM reported 07/26 Labs Reviewed:Glu 127, Alb 2.6,Hct 8.9,Hgb 9.0 Meds Noted:Precedex, Propofol 8.97 ml/jb=497 kcal, Miralax, Keppra, Thiamine. Skin: WNL Additional Notes: Patient remains on mechanical vent. Tube feedings continue to be tolerated per nursing of Vital AF 1.2 at 60 ml/hr. Total Nutrition: 1821 kcal/99 gm protein/1070 ml water. Flush 30 ml q 4 hours. Agree with diet orders. Will monitor weight, labs, skin, diet orders, meds every Monday and Monday.
[2024-07-26 11:14] LABS: Glucose Point of Care 128 mg/dl (65-105)
--- NOTE | 2024-07-26 14:26 | PM.IMPN ---
Progress Note: A&P Assessment and Plan (1) Acute respiratory failure: Code(s): J96.00 - Acute respiratory failure, unspecified whether with hypoxia or hypercapnia Status: Acute Assessment and Plan: Acute respiratory failure likely related to pneumonia versus COPD exacerbation. -07/19: Intubated for impending respiratory failure as patient was tachypneic, tachycardic with severe mottling on bilateral lower extremities, obtunded on BiPAP -continue home Trelegy inhaler -continue bronchodilators Continue sedation and vent management per engineer rf deployment (2) Shock: Code(s): R57.9 - Shock, unspecified Status: Acute Assessment and Plan: Off pressor support likely from possible pneumonia at this time, r/o Cholecystitis/cholangitis monitor blood, sputum, bile and urine cultures Continue Meropenem, Azithromycin and Flagyl , continue tube feeds US abd showed gall bladder distension and debris which heightened suspicion of cholecystitis S/p Cholecystostomy with perc drainage ECHO showed EF EF 50-55%, no significant valvular dysfunction Fever resolved continue monitoring in ICU (3) AMS (altered mental status): Code(s): R41.82 - Altered mental status, unspecified Status: Acute Assessment and Plan: Patient with altered mental status could be related to hypoxia. Urine drug screen was negative -patient also had some aphasia which could be secondary to a stroke/hypoxia -appreciate Neurology evaluation and recommendation, will continue Plavix, aspirin and statin -MRI when able 07/19: CTA neck 60-70% stenosis of the proximal right internal carotid artery with additional 70% stenosis of the distal right common carotid artery. 50% stenosis of the proximal left internal carotid artery. 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 with partial reconstitution at its midportion, versus severely hypoplastic right vertebral artery (4) Aphasia: Code(s): R47.01 - Aphasia Status: Acute Assessment and Plan: As above (5) COPD exacerbation: Code(s): J44.1 - Chronic obstructive pulmonary disease with (acute) exacerbation Status: Acute Assessment and Plan: Continue mechanical ventilation, bronchodilators and steroids (6) Pneumonia: Code(s): J18.9 - Pneumonia, unspecified organism Status: Acute Assessment and Plan: Continue antibiotics and steroids (7) NIKKO (acute kidney injury): Code(s): N17.9 - Acute kidney failure, unspecified Status: Acute Assessment and Plan: Baseline creatinine 1.30, -currently acute kidney injury with creatinine of 2.0 this admission -could be related to hypovolemia, infection, shock, hypoxia, contrast -CK levels within normal limits -urine lytes did not show prerenal picture, urine eosinophils were negative -Renal ultrasound: No abnormality seen Creatinine 1.6, down from 2.3 (8) Hyperbilirubinemia: Code(s): E80.6 - Other disorders of bilirubin metabolism Status: Acute Assessment and Plan: Hyperbilirubinemia with transaminitis Possible Cholecystitis, US showed distended gallbladder with echogenic debris suggestive of sludeg LFTs and Bilirubin is now normal -patient evaluated by general surgery -07/20: Status post cholecystostomy with perc drain in place LFTs now within normal limits Perc drainage still in place Plan Acute respiratory failure likely related to pneumonia versus COPD exacerbation. -07/19: Intubated for impending respiratory failure as patient was tachypneic, tachycardic with severe mottling on bilateral lower extremities, obtunded on BiPAP -continue home Trelegy inhaler -continue bronchodilators on 07/24 patient had bronchoscopy and there was no mucus plug. there was concern for cholecystitis, gallbladder was drained by IR, seen by general surgeon patient is not a candidate for cholecystectomy at the present time. Discussed with engineer rf deployment
[2024-07-26] MEDS: PROPOFOL IV EMULSION 100 ML 11.96 MG IV CONT (15:17)
[2024-07-26] MEDS: ACETAMINOPHEN ELIXIR 325 MG/10.15 ML UDC 650 MG PO ×2 (15:17→21:12)
[2024-07-26 17:35] LABS: Glucose Point of Care 137 mg/dl (65-105)
[2024-07-26] MEDS: PROPOFOL IV EMULSION 100 ML 14.96 MG IV CONT (23:22)
[2024-07-26 23:36] LABS: Glucose Point of Care 105 mg/dl (65-105)
[2024-07-27] VITALS (67 sets, daily range): BP systolic 60–123; BP diastolic 47–85; PULSE 72–133; RESP 18–123; TEMP 36.7–38.5; O2SAT 92–98
[2024-07-27] MEDS: ACETAMINOPHEN ELIXIR 325 MG/10.15 ML UDC 650 MG PO ×4 (01:01→21:09)
[2024-07-27] MEDS: IPRATROPIUM BR 0.02% INH SOLN 0.5 MG/2.5 ML VIAL INHALATION ×4 (02:05→20:32)
[2024-07-27] MEDS: LEVALBUTEROL NEB 1.25 MG/3 ML INHALATION ×3 (02:05→20:32)
[2024-07-27] MEDS: dexmedeTOMIDine 400 MCG/100 ML 400 MCG/100 ML BAG 14.88 MCG IV CONT ×4 (03:37→22:41)
--- NOTE | 2024-07-27 03:58 | PC.NURSE ---
Report received from Jesus SMALLS.
[2024-07-27 05:22] LABS: Alveolar/Arterial O2 Gradient 166.7 mmHg; Base Excess ABG 1.8 mEq/l (+/-2.0); Fractional Inspired Oxygen 40 %; HCO3 ABG 24.7 mEq/l (22.0-26.0); Oxygen Content ABG 13.8 %vol (16.0-22.0); Oxygen Saturation ABG 96.9 % (95.0-100.0); Oxyhemoglobin 95.5 % THb (90.0-100.0); PCO2 ABG 32.5 mmHg (35.0-45.0); PO2 ABG 81.1 mmHg (80.0-100.0); PO2 FiO2 Ratio Arterial Blood 2.03 %; Total Hemoglobin 10.2 g/dL (12.0-18.0); pH ABG 7.499 (7.350-7.450)
[2024-07-27 05:23] LABS: Device VENTILATOR; Modified Allen's Test Unable to perform; Site Drawn RIGHT RADIAL
[2024-07-27 05:24] LABS: Arterial Blood Gas PEEP 8 cmH2O; Arterial Blood Gas Tidal Volume 400 ml; Arterial Blood Gas Vent Mode CMV; Arterial Blood Gas Ventilator rate 18 /MIN
[2024-07-27] MEDS: PROPOFOL IV EMULSION 100 ML 14.96 MG IV CONT (06:02)
[2024-07-27] MEDS: MEROPENEM 1 GM/NS 100 ML 1 GM/100 ML BAG IVPB ×3 (06:04→21:25)
[2024-07-27] MEDS: CENTRAL LINE FLUSH 10 ML IV PUSH ×3 (06:05→21:25)
[2024-07-27 06:16] LABS: Hematocrit 29.3 % (42.0-52.0); Hemoglobin 9.1 g/dL (14.0-18.0); Mean Corpuscular HGB Conc 31.1 g/dl (32-36); Mean Corpuscular Hemoglobin 29.7 pg (26-34); Mean Corpuscular Volume 95.8 fl (80-100); Mean Platelet Volume 11.8 fl (7.4-10.4); Platelet Count Result 173 k/mm3 (150-375); Red Blood Count 3.06 M/mm3 (4.6-6.20); Red Cell Distribution Width 17.5 % (11.5-14.5); White Blood Count 13.2 K/mm3 (4.5-10.0)
[2024-07-27 06:27] LABS: Alanine Aminotransferase 81 U/L (6-50); Albumin Level 2.7 g/dL (3.5-5.1); Alkaline Phosphatase 213 U/L (38-126); Anion Gap 7 mmol/L (4-12); Aspartate Amino Transferase 76 U/L (17-59); Bilirubin,Total 0.4 mg/dL (0.2-1.3); Blood Urea Nitrogen 34 mg/dL (9-20); Calcium 8.3 mg/dL (8.4-10.2); Carbon Dioxide 25 mmol/L (22-30); Chloride 109 mmol/L (98-107); Estimated CRCL calculation 86 ml/min; Estimated Glomerular Filt Rate > 60; Glucose 129 mg/dL (65-110); Magnesium 1.8 mg/dL (1.6-2.3); Phosphorus 4.5 mg/dL (2.5-4.5); Potassium 3.5 mmol/L (3.4-5.0); Sodium 141 mmol/L (137-145)
[2024-07-27] MEDS: fentaNYL CITRATE INJ (*CRX) 100 MCG/2 ML VIAL 50 MCG IV PUSH ×5 (07:57→22:27)
[2024-07-27] MEDS: FUROSEMIDE INJ 40 MG/4 ML VIAL IV PUSH (08:01)
[2024-07-27] MEDS: ALBUMIN HUMAN 25% 25 GM/100 ML 100 ML IVPB (08:01)
[2024-07-27] MEDS: PANTOPRAZOLE SODIUM IV 40 MG VIAL IV PUSH (08:01)
[2024-07-27] MEDS: MINERAL OIL/WHITE PETROLATUM OINTMENT 1 APPLIC EACH EYE ×2 (08:03→21:08)
[2024-07-27] MEDS: polyethylene glycoL 3350 17 GM POWD.PACK PO (08:03)
[2024-07-27] MEDS: ENOXAPARIN 40 MG/0.4 ML SYRINGE SUB-Q (08:03)
[2024-07-27] MEDS: METOPROLOL TARTRATE 25 MG TABLET FEED TUBE ×2 (08:04→21:27)
[2024-07-27] MEDS: CLOPIDOGREL BISULFATE 75 MG TABLET PO (08:04)
[2024-07-27] MEDS: POTASSIUM CHLORIDE 20 MEQ PACKET (FOR LIQUID) 40 MEQ FEED TUBE (08:04)
[2024-07-27] MEDS: ATORVASTATIN 40 MG TABLET PO (08:04)
[2024-07-27] MEDS: ASPIRIN 81 MG CHEWABLE TABLET PO (08:04)
[2024-07-27] MEDS: THIAMINE HCL 200 MG/2 ML VIAL IV PUSH (08:05)
[2024-07-27] MEDS: FOLIC ACID 1 MG/0.2 ML INJ IV PUSH (08:07)
[2024-07-27] MEDS: levETIRAcetam 500MG/NACL 100ML 500 MG/100 ML BAG 400 MG IVPB ×2 (08:37→21:08)
--- NOTE | 2024-07-27 08:58 | WPDINTPN ---
Progress Note: A&P Assessment and Plan (1) Acute respiratory failure: Code(s): J96.00 - Acute respiratory failure, unspecified whether with hypoxia or hypercapnia Status: Acute Assessment and Plan: Acute respiratory failure likely related to pneumonia, COPD exacerbation and pulmonary edema -07/19: Intubated for impending respiratory failure as patient was tachypneic, tachycardic with severe mottling on bilateral lower extremities, obtunded on BiPAP - 07/23 increase FiO2 requirement and peep had to be increased to 10 and currently FiO2 70%. Patient is breathing with asynchrony due to lowering of sedation. Will increase the Versed to 3 milligrams/hour -CT chest 07/23 IMPRESSION: 1. Mild pulmonary edema. 2. Small pleural effusions, left worse than right. 3. Collapse of right lung lower lobe, worse than expected for the size of the pleural effusion. 07/24 had diagnostic and therapeutic bronchoscopy. Cultures growing normal quintin -chest x-ray reviewed and shows improved -ABG reviewed -advance ET tube by 2 cm -I currently on FiO2 40% and PEEP to 8 -continue diuretics but decrease dose -PCR for influenza RSV and COVID were negative - urine pneumococcal negative and Legionella antigen negative -currently sedated with fentanyl and Precedex. Sedation holiday was performed and patient was evaluate for weaning trial but patient quickly became tachypneic and tachycardic with respiratory rate in high 30s preventing SBT at this time. (2) Shock: Code(s): R57.9 - Shock, unspecified Status: Acute Assessment and Plan: Hypotension, lactic acidosis, tachycardia, tachypnea, hyperbilirubinemia, acute kidney injury, mottling on lower extremities, fevers -patient seems to be hypovolemic, fluid-resuscitated -could be related to pneumonia, bacteremia and cholecystitis -07/19: Blood cultures negative so far -07/19: Urine cultures negative -07/19: Sputum cultures negative -07/19: Was started on azithromycin, ceftriaxone and vancomycin Patient continues to be febrile, right upper quadrant ultrasound shows gallbladder wall thickening and sludge, will do is discontinue ceftriaxone and add meropenem for Gram-negative and anaerobic coverage -completed course of azithromycin -vancomycin discontinued Continue meropenem 07/20: Gallbladder cultures growing Enterococcus and Bacteroides fragilis 07/19: Echocardiogram Summary 1. Technically difficult exam would done with patient on mechanical ventilator support. 2. Definity contrast used to improve visualization. 3. Global left ventricular systolic function appears to be intact. EF 50-55% 4. No significant valvular dysfunction, mildly sclerotic aortic valve. 5. RVSP 18 mmHg (3) AMS (altered mental status): Code(s): R41.82 - Altered mental status, unspecified Status: Acute Assessment and Plan: Patient with altered mental status could be related to hypoxia. Urine drug screen was negative -patient also had some aphasia which could be secondary to a stroke/hypoxia -appreciate Neurology evaluation and recommendation, will continue Plavix, aspirin and statin - Patient did follows simple commands on loading sedation 07/19: CTA neck 60-70% stenosis of the proximal right internal carotid artery with additional 70% stenosis of the distal right common carotid artery. 50% stenosis of the proximal left internal carotid artery. 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
[2024-07-27] MEDS: MIDAZOLAM HCL (*CRX) 2 MG/2 ML VIAL IV PUSH (11:27)
[2024-07-27] MEDS: PROPOFOL IV EMULSION 100 ML 20.94 MG IV CONT (12:08)
[2024-07-27 12:19] LABS: Glucose Point of Care 100 mg/dl (65-105)
--- NOTE | 2024-07-27 16:45 | P.PNIM_ITS ---
Progress Note: A&P Assessment and Plan (1) Acute respiratory failure: Code(s): J96.00 - Acute respiratory failure, unspecified whether with hypoxia or hypercapnia Status: Acute Assessment and Plan: Acute respiratory failure likely related to pneumonia, COPD exacerbation and pulmonary edema -07/19: Intubated for impending respiratory failure as patient was tachypneic, tachycardic with severe mottling on bilateral lower extremities, obtunded on BiPAP - 07/23 increase FiO2 requirement and peep had to be increased to 10 and currently FiO2 70%. Patient is breathing with asynchrony due to lowering of sedation. Will increase the Versed to 3 milligrams/hour -CT chest 07/23 IMPRESSION: 1. Mild pulmonary edema. 2. Small pleural effusions, left worse than right. 3. Collapse of right lung lower lobe, worse than expected for the size of the pleural effusion. 07/24 had diagnostic and therapeutic bronchoscopy. Cultures growing normal quintin -chest x-ray reviewed and shows improved -ABG reviewed -advance ET tube by 2 cm -I currently on FiO2 40% and PEEP to 8 -continue diuretics but decrease dose -PCR for influenza RSV and COVID were negative - urine pneumococcal negative and Legionella antigen negative -currently sedated with fentanyl and Precedex. Sedation holiday was performed and patient was evaluate for weaning trial but patient quickly became tachypneic and tachycardic with respiratory rate in high 30s preventing SBT at this time. (2) Shock: Code(s): R57.9 - Shock, unspecified Status: Acute Assessment and Plan: Hypotension, lactic acidosis, tachycardia, tachypnea, hyperbilirubinemia, acute kidney injury, mottling on lower extremities, fevers -patient seems to be hypovolemic, fluid-resuscitated -could be related to pneumonia, bacteremia and cholecystitis -07/19: Blood cultures negative so far -07/19: Urine cultures negative -07/19: Sputum cultures negative -07/19: Was started on azithromycin, ceftriaxone and vancomycin Patient continues to be febrile, right upper quadrant ultrasound shows gallbladder wall thickening and sludge, will do is discontinue ceftriaxone and add meropenem for Gram-negative and anaerobic coverage -completed course of azithromycin -vancomycin discontinued Continue meropenem 07/20: Gallbladder cultures growing Enterococcus and Bacteroides fragilis 07/19: Echocardiogram Summary 1. Technically difficult exam would done with patient on mechanical ventilator support. 2. Definity contrast used to improve visualization. 3. Global left ventricular systolic function appears to be intact. EF 50-55% 4. No significant valvular dysfunction, mildly sclerotic aortic valve. 5. RVSP 18 mmHg (3) AMS (altered mental status): Code(s): R41.82 - Altered mental status, unspecified Status: Acute Assessment and Plan: Patient with altered mental status could be related to hypoxia. Urine drug screen was negative -patient also had some aphasia which could be secondary to a stroke/hypoxia -appreciate Neurology evaluation and recommendation, will continue Plavix, a spirin and statin - Patient did follows simple commands on loading sedation 07/19: CTA neck 60-70% stenosis of the proximal right internal carotid artery with additional 70% stenosis of the distal right common carotid artery. 50% stenosis of the proximal left internal carotid artery. 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
[2024-07-27 17:12] LABS: Glucose Point of Care 129 mg/dl (65-105)
[2024-07-27] MEDS: PROPOFOL IV EMULSION 100 ML 17.95 MG IV CONT (17:39)
[2024-07-27] MEDS: FENTANYL 2,500MCG/NS250ML(*CRX 2,500 MCG/250 ML BAG IV CONT (18:26)
[2024-07-27] MEDS: PROPOFOL IV EMULSION 100 ML 29.91 MG IV CONT (22:25)
[2024-07-27] MEDS: NOREPINEPHRINE 8 MG/D5W 250 ML 8 MG/250 ML BAG 9.38 MG IV CONT (22:30)
[2024-07-28] VITALS (90 sets, daily range): BP systolic 67–157; BP diastolic 51–140; PULSE 67–113; RESP 14–40; TEMP 36.2–38.3; O2SAT 96–100
[2024-07-28 00:40] LABS: Glucose Point of Care 106 mg/dl (65-105)
[2024-07-28] MEDS: PROPOFOL IV EMULSION 100 ML 29.91 MG IV CONT ×2 (01:22→04:56)
[2024-07-28] MEDS: LEVALBUTEROL NEB 1.25 MG/3 ML INHALATION ×4 (01:28→20:37)
[2024-07-28] MEDS: IPRATROPIUM BR 0.02% INH SOLN 0.5 MG/2.5 ML VIAL INHALATION ×4 (01:28→20:36)
[2024-07-28 04:59] LABS: Alveolar/Arterial O2 Gradient 161.5 mmHg; Base Excess ABG -0.5 mEq/l (+/-2.0); Fractional Inspired Oxygen 40 %; Oxygen Content ABG 13.4 %vol (16.0-22.0); Oxyhemoglobin 95.6 % THb (90.0-100.0); PCO2 ABG 33.4 mmHg (35.0-45.0); PO2 ABG 85.3 mmHg (80.0-100.0); PO2 FiO2 Ratio Arterial Blood 2.13 %; Total Hemoglobin 9.9 g/dL (12.0-18.0); pH ABG 7.456 (7.350-7.450)
[2024-07-28 05:00] LABS: Device VENTILATOR; Modified Allen's Test Pass; Site Drawn RIGHT RADIAL
[2024-07-28 05:01] LABS: Arterial Blood Gas PEEP 8 cmH2O; Arterial Blood Gas Tidal Volume 400 ml; Arterial Blood Gas Vent Mode CMV; Arterial Blood Gas Ventilator rate 18 /MIN
[2024-07-28 05:36] LABS: Hematocrit 28.6 % (42.0-52.0); Hemoglobin 9.1 g/dL (14.0-18.0); Mean Corpuscular HGB Conc 31.8 g/dl (32-36); Mean Corpuscular Hemoglobin 30.4 pg (26-34); Mean Corpuscular Volume 95.7 fl (80-100); Mean Platelet Volume 11.7 fl (7.4-10.4); Platelet Count Result 225 k/mm3 (150-375); Red Blood Count 2.99 M/mm3 (4.6-6.20); Red Cell Distribution Width 17.3 % (11.5-14.5); White Blood Count 11.5 K/mm3 (4.5-10.0)
[2024-07-28] MEDS: dexmedeTOMIDine 400 MCG/100 ML 400 MCG/100 ML BAG 14.88 MCG IV CONT (05:38)
[2024-07-28] MEDS: MEROPENEM 1 GM/NS 100 ML 1 GM/100 ML BAG IVPB ×3 (05:40→21:34)
[2024-07-28] MEDS: CENTRAL LINE FLUSH 10 ML IV PUSH ×3 (05:40→21:36)
[2024-07-28 05:48] LABS: Alanine Aminotransferase 132 U/L (6-50); Albumin Level 2.9 g/dL (3.5-5.1); Alkaline Phosphatase 242 U/L (38-126); Anion Gap 5 mmol/L (4-12); Aspartate Amino Transferase 104 U/L (17-59); Bilirubin,Total 0.5 mg/dL (0.2-1.3); Blood Urea Nitrogen 29 mg/dL (9-20); Calcium 8.3 mg/dL (8.4-10.2); Carbon Dioxide 27 mmol/L (22-30); Chloride 108 mmol/L (98-107); Estimated CRCL calculation 112 ml/min; Estimated Glomerular Filt Rate > 60; Glucose 140 mg/dL (65-110); Magnesium 1.9 mg/dL (1.6-2.3); Phosphorus 4.6 mg/dL (2.5-4.5); Potassium 3.6 mmol/L (3.4-5.0); Sodium 140 mmol/L (137-145); Triglycerides 124 mg/dL (<150)
[2024-07-28] MEDS: METOPROLOL TARTRATE 25 MG TABLET FEED TUBE ×2 (08:35→20:39)
[2024-07-28] MEDS: ASPIRIN 81 MG CHEWABLE TABLET PO (08:35)
[2024-07-28] MEDS: CLOPIDOGREL BISULFATE 75 MG TABLET PO (08:35)
[2024-07-28] MEDS: THIAMINE HCL 200 MG/2 ML VIAL IV PUSH (08:35)
[2024-07-28] MEDS: PANTOPRAZOLE SODIUM IV 40 MG VIAL IV PUSH (08:36)
[2024-07-28] MEDS: polyethylene glycoL 3350 17 GM POWD.PACK PO (08:36)
[2024-07-28] MEDS: ENOXAPARIN 40 MG/0.4 ML SYRINGE SUB-Q (08:36)
[2024-07-28] MEDS: levETIRAcetam 500MG/NACL 100ML 500 MG/100 ML BAG 400 MG IVPB ×2 (08:37→20:38)
[2024-07-28] MEDS: FOLIC ACID 1 MG/0.2 ML INJ IV PUSH (08:37)
[2024-07-28] MEDS: MINERAL OIL/WHITE PETROLATUM OINTMENT 1 APPLIC EACH EYE ×2 (08:38→20:39)
--- NOTE | 2024-07-28 09:07 | WPDINTPN ---
Progress Note: A&P Assessment and Plan (1) Acute respiratory failure: Code(s): J96.00 - Acute respiratory failure, unspecified whether with hypoxia or hypercapnia Status: Acute Assessment and Plan: Acute respiratory failure likely related to pneumonia, COPD exacerbation and pulmonary edema -07/19: Intubated for impending respiratory failure as patient was tachypneic, tachycardic with severe mottling on bilateral lower extremities, obtunded on BiPAP - 07/23 increase FiO2 requirement and peep had to be increased to 10 and currently FiO2 70%. Patient is breathing with asynchrony due to lowering of sedation. Will increase the Versed to 3 milligrams/hour -CT chest 07/23 IMPRESSION: 1. Mild pulmonary edema. 2. Small pleural effusions, left worse than right. 3. Collapse of right lung lower lobe, worse than expected for the size of the pleural effusion. 07/24 had diagnostic and therapeutic bronchoscopy. Cultures growing normal quintin -chest x-ray reviewed and shows improved -ABG reviewed -advance ET tube by 2 cm to 28 cm -I currently on FiO2 40% and PEEP to 8 -continue diuretics but decrease dose -PCR for influenza RSV and COVID were negative - urine pneumococcal negative and Legionella antigen negative -patient has been difficult to adequately sedate and evaluate for weaning trial. On holding sedation patient becomes tachypneic asynchronous with the ventilator tachycardic. He was on Precedex and propofol. I ended fentanyl infusion. Today morning propofol was held and patient started following commands but complained that he was short of breath. Patient had intermittent tachypnea. Not a candidate for weaning trial this time. Continue sedation holiday as much as patient tolerates (2) Shock: Code(s): R57.9 - Shock, unspecified Status: Acute Assessment and Plan: Hypotension, lactic acidosis, tachycardia, tachypnea, hyperbilirubinemia, acute kidney injury, mottling on lower extremities, fevers -patient seems to be hypovolemic, fluid-resuscitated -could be related to pneumonia, bacteremia and cholecystitis -07/19: Blood cultures negative so far -07/19: Urine cultures negative -07/19: Sputum cultures negative -07/19: Was started on azithromycin, ceftriaxone and vancomycin Patient continues to be febrile, right upper quadrant ultrasound shows gallbladder wall thickening and sludge, will do is discontinue ceftriaxone and add meropenem for Gram-negative and anaerobic coverage -completed course of azithromycin -vancomycin discontinued Continue meropenem 07/20: Gallbladder cultures growing Enterococcus and Bacteroides fragilis 07/19: Echocardiogram Summary 1. Technically difficult exam would done with patient on mechanical ventilator support. 2. Definity contrast used to improve visualization. 3. Global left ventricular systolic function appears to be intact. EF 50-55% 4. No significant valvular dysfunction, mildly sclerotic aortic valve. 5. RVSP 18 mmHg (3) AMS (altered mental status): Code(s): R41.82 - Altered mental status, unspecified Status: Acute Assessment and Plan: Patient with altered mental status could be related to hypoxia. Urine drug screen was negative -patient also had some aphasia which could be secondary to a stroke/hypoxia -appreciate Neurology evaluation and recommendation, will continue Plavix, aspirin and statin - Patient did follows simple commands on loading sedation 07/19: CTA neck 60-70% stenosis of the proximal right internal carotid artery with additional 70% stenosis of the distal right common carotid artery. 50% stenosis of the proximal left internal carotid artery. 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
[2024-07-28 09:40] LABS: Creatine Kinase 35 U/L (55-170)
[2024-07-28] MEDS: fentaNYL CITRATE INJ (*CRX) 100 MCG/2 ML VIAL 50 MCG IV PUSH (09:54)
[2024-07-28] MEDS: POTASSIUM CHLORIDE 20 MEQ PACKET (FOR LIQUID) 40 MEQ FEED TUBE (09:54)
[2024-07-28] MEDS: PROPOFOL IV EMULSION 100 ML 14.96 MG IV CONT (10:42)
[2024-07-28] MEDS: dexmedeTOMIDine 400 MCG/100 ML 400 MCG/100 ML BAG 19.84 MCG IV CONT ×3 (11:47→21:35)
[2024-07-28] MEDS: ACETAMINOPHEN ELIXIR 325 MG/10.15 ML UDC 650 MG PO (12:16)
[2024-07-28 12:24] LABS: Glucose Point of Care 103 mg/dl (65-105)
[2024-07-28] MEDS: PROPOFOL IV EMULSION 100 ML 17.95 MG IV CONT ×2 (15:55→21:33)
[2024-07-28 18:23] LABS: Glucose Point of Care 112 mg/dl (65-105)
[2024-07-28] MEDS: NOREPINEPHRINE 8 MG/D5W 250 ML 8 MG/250 ML BAG 7.5 MG IV CONT (20:30)
[2024-07-28] MEDS: FENTANYL 2,500MCG/NS250ML(*CRX 2,500 MCG/250 ML BAG 7.5 MCG IV CONT (20:51)
[2024-07-29] VITALS (82 sets, daily range): BP systolic 70–125; BP diastolic 50–95; PULSE 71–113; RESP 13–32; TEMP 36.2–38.6; O2SAT 90–100
[2024-07-29] MEDS: PROPOFOL IV EMULSION 100 ML 29.91 MG IV CONT ×4 (00:32→20:09)
[2024-07-29 00:40] LABS: Glucose Point of Care 110 mg/dl (65-105)
[2024-07-29] MEDS: LEVALBUTEROL NEB 1.25 MG/3 ML INHALATION ×4 (02:20→20:23)
[2024-07-29] MEDS: IPRATROPIUM BR 0.02% INH SOLN 0.5 MG/2.5 ML VIAL INHALATION ×4 (02:20→20:23)
[2024-07-29] MEDS: dexmedeTOMIDine 400 MCG/100 ML 400 MCG/100 ML BAG 19.84 MCG IV CONT ×3 (02:34→20:10)
[2024-07-29] MEDS: CENTRAL LINE FLUSH 10 ML IV PUSH ×3 (05:11→20:12)
[2024-07-29] MEDS: MEROPENEM 1 GM/NS 100 ML 1 GM/100 ML BAG IVPB ×3 (05:11→20:10)
[2024-07-29] MEDS: BISACODYL 10 MG SUPPOSITORY RECTAL (05:17)
[2024-07-29 05:30] LABS: Alveolar/Arterial O2 Gradient 175.1 mmHg; Base Excess ABG 0.2 mEq/l (+/-2.0); Fractional Inspired Oxygen 40 %; HCO3 ABG 23.8 mEq/l (22.0-26.0); Oxygen Content ABG 13.2 %vol (16.0-22.0); Oxyhemoglobin 93.2 % THb (90.0-100.0); PCO2 ABG 34.7 mmHg (35.0-45.0); PO2 ABG 70.2 mmHg (80.0-100.0); PO2 FiO2 Ratio Arterial Blood 1.75 %; pH ABG 7.454 (7.350-7.450)
[2024-07-29 05:32] LABS: Arterial Blood Gas PEEP 5 cmH2O; Arterial Blood Gas Vent Mode ASV; Device VENTILATOR; Modified Allen's Test Pass; Site Drawn RIGHT RADIAL
[2024-07-29 05:54] LABS: Hematocrit 29.3 % (42.0-52.0); Mean Corpuscular HGB Conc 30.7 g/dl (32-36); Mean Corpuscular Hemoglobin 29.4 pg (26-34); Mean Corpuscular Volume 95.8 fl (80-100); Mean Platelet Volume 11.5 fl (7.4-10.4); Platelet Count Result 243 k/mm3 (150-375); Red Blood Count 3.06 M/mm3 (4.6-6.20); White Blood Count 9.7 K/mm3 (4.5-10.0)
[2024-07-29 06:06] LABS: Alanine Aminotransferase 110 U/L (6-50); Albumin Level 2.8 g/dL (3.5-5.1); Alkaline Phosphatase 239 U/L (38-126); Anion Gap 5 mmol/L (4-12); Aspartate Amino Transferase 61 U/L (17-59); Bilirubin,Total 0.3 mg/dL (0.2-1.3); Blood Urea Nitrogen 23 mg/dL (9-20); Carbon Dioxide 24 mmol/L (22-30); Chloride 106 mmol/L (98-107); Estimated CRCL calculation 133 ml/min; Estimated Glomerular Filt Rate > 60; Glucose 133 mg/dL (65-110); Magnesium 1.9 mg/dL (1.6-2.3); Phosphorus 4.1 mg/dL (2.5-4.5); Potassium 3.5 mmol/L (3.4-5.0); Sodium 135 mmol/L (137-145)
[2024-07-29] MEDS: levETIRAcetam 500MG/NACL 100ML 500 MG/100 ML BAG 400 MG IVPB ×2 (08:23→20:08)
[2024-07-29] MEDS: FUROSEMIDE INJ 40 MG/4 ML VIAL 20 MG IV PUSH (08:23)
[2024-07-29] MEDS: ASPIRIN 81 MG CHEWABLE TABLET PO (08:24)
[2024-07-29] MEDS: FOLIC ACID 1 MG/0.2 ML INJ IV PUSH (08:24)
[2024-07-29] MEDS: MINERAL OIL/WHITE PETROLATUM OINTMENT 1 APPLIC EACH EYE ×2 (08:24→20:08)
[2024-07-29] MEDS: CLOPIDOGREL BISULFATE 75 MG TABLET PO (08:24)
[2024-07-29] MEDS: polyethylene glycoL 3350 17 GM POWD.PACK PO (08:24)
[2024-07-29] MEDS: PANTOPRAZOLE SODIUM IV 40 MG VIAL IV PUSH (08:24)
[2024-07-29] MEDS: METOPROLOL TARTRATE 25 MG TABLET FEED TUBE (08:25)
[2024-07-29] MEDS: THIAMINE HCL 200 MG/2 ML VIAL IV PUSH (08:25)
[2024-07-29] MEDS: ENOXAPARIN 40 MG/0.4 ML SYRINGE SUB-Q (08:34)
--- NOTE | 2024-07-29 11:30 | PCFNICU ---
ICU Rounding Note: Pt current nutrition is Vital AF .2 @ 60 ml/h. Flush 30 ml free water q 4 h. Nutrition recommendation: Continue with current nutrition care plan and orders. Last recorded weight is 102.4 kg. Bowel Motility: +1 BM 07/26. Labs Reviewed: Hgb 9.0, Hct 29.3, Alb 2.8, Na 13, BUN 23, Cre 0.5, glu 133 Meds Noted: Pressors: Levophed. Sedation: Precedex, versed, fentanyl. Miralax Skin: No pressure Additional Notes: Pt continues on vent. Propofol was increased over the weekend. Propofol to be turned off today and versed added. In light of this, continue with tube feeding at same rate to meet ~100% estimated energy needs and ~84% estimated protein needs. MAP 78 Following daily in ICU rounds. Will monitor weight, labs, skin, diet orders, meds every 3 days. .
[2024-07-29] MEDS: PROPOFOL IV EMULSION 100 ML 14.96 MG IV CONT (11:41)
[2024-07-29] MEDS: MIDAZOLAM 100MG/NS 100ML(*CRX) 100 MG/100 ML BAG IV CONT (11:58)
[2024-07-29] MEDS: dexmedeTOMIDine 400 MCG/100 ML 400 MCG/100 ML BAG 22.32 MCG IV CONT ×2 (12:30→16:05)
[2024-07-29 12:45] LABS: Glucose Point of Care 81 mg/dl (65-105)
--- NOTE | 2024-07-29 13:47 | WPDINTPN ---
Progress Note: A&P Assessment and Plan (1) Acute respiratory failure: Code(s): J96.00 - Acute respiratory failure, unspecified whether with hypoxia or hypercapnia Status: Acute Assessment and Plan: Acute respiratory failure likely related to pneumonia, COPD exacerbation and pulmonary edema -07/19: Intubated for impending respiratory failure as patient was tachypneic, tachycardic with severe mottling on bilateral lower extremities, obtunded on BiPAP - 07/23 increase FiO2 requirement and peep had to be increased to 10 and currently FiO2 70%. -chest x-ray this morning: [id number] left pleural effusion with left lower lobe atelectasis.Correlate for associated mild bibasilar pulmonary edema or pneumonia -ABG reviewed -currently on ASV mode of ventilation -will give Lasix 20 mg IV x1 -PCR for influenza RSV and COVID were negative - urine pneumococcal negative and Legionella antigen negative -patient has been difficult to adequately sedate and evaluate for weaning trial. On holding sedation patient becomes tachypneic asynchronous with the ventilator tachycardic. Currently on Precedex, propofol and fentanyl infusion -this morning propofol was held and patient started following commands was tachypneic in the 30s to 40s and was getting agitated, failed screening for home weaning parameters from the ventilator. -will discuss with family regarding tracheostomy and PEG tube placement -will try small dose of quetiapine to see if we could come down on sedation and eventually try him on SBT -CT chest 07/23 IMPRESSION: 1. Mild pulmonary edema. 2. Small pleural effusions, left worse than right. 3. Collapse of right lung lower lobe, worse than expected for the size of the pleural effusion. 07/24 had diagnostic and therapeutic bronchoscopy. Cultures growing normal quintin (2) Shock: Code(s): R57.9 - Shock, unspecified Status: Acute Assessment and Plan: Hypotension, lactic acidosis, tachycardia, tachypnea, hyperbilirubinemia, acute kidney injury, mottling on lower extremities, fevers -patient seems to be hypovolemic, fluid-resuscitated -could be related to pneumonia, bacteremia and cholecystitis -07/19: Blood cultures negative so far -07/19: Urine cultures negative -07/19: Sputum cultures negative -07/19: Initially on azithromycin, ceftriaxone and vancomycin, -completed course of azithromycin -vancomycin discontinued Continue meropenem for total of 14 days 07/20: Gallbladder cultures growing Enterococcus and Bacteroides fragilis 07/19: Echocardiogram Summary 1. Technically difficult exam would done with patient on mechanical ventilator support. 2. Definity contrast used to improve visualization. 3. Global left ventricular systolic function appears to be intact. EF 50-55% 4. No significant valvular dysfunction, mildly sclerotic aortic valve. 5. RVSP 18 mmHg (3) AMS (altered mental status): Code(s): R41.82 - Altered mental status, unspecified Status: Acute Assessment and Plan: Patient with altered mental status could be related to hypoxia. Urine drug screen was negative -patient also had some aphasia which could be secondary to a stroke/hypoxia -appreciate Neurology evaluation and recommendation, will continue Plavix, aspirin and statin - Patient did follows simple commands on loading sedation 07/19: CTA neck 60-70% stenosis of the proximal right internal carotid artery with additional 70% stenosis of the distal right common carotid artery. 50% stenosis of the proximal left internal carotid artery. 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
[2024-07-29] MEDS: [UNRECOGNIZED DRUG - REMARK] XX (14:14)
[2024-07-29] MEDS: QUEtiapine FUMARATE 12.5 MG TABLET PO ×2 (14:15→20:08)
[2024-07-29] MEDS: PROPOFOL IV EMULSION 100 ML 23.93 MG IV CONT (16:03)
[2024-07-29] MEDS: ACETAMINOPHEN ELIXIR 325 MG/10.15 ML UDC 650 MG PO (16:35)
[2024-07-29 18:25] LABS: Glucose Point of Care 106 mg/dl (65-105)
[2024-07-29 23:41] LABS: Glucose Point of Care 132 mg/dl (65-105)
[2024-07-30] VITALS (77 sets, daily range): BP systolic 76–118; BP diastolic 55–83; PULSE 77–121; RESP 17–28; TEMP 36.4–38.3; O2SAT 93–99
[2024-07-30] MEDS: PROPOFOL IV EMULSION 100 ML 29.91 MG IV CONT ×7 (00:07→21:16)
[2024-07-30] MEDS: dexmedeTOMIDine 400 MCG/100 ML 400 MCG/100 ML BAG 19.84 MCG IV CONT ×3 (01:50→13:56)
[2024-07-30] MEDS: IPRATROPIUM BR 0.02% INH SOLN 0.5 MG/2.5 ML VIAL INHALATION ×4 (01:58→20:03)
[2024-07-30] MEDS: LEVALBUTEROL NEB 1.25 MG/3 ML INHALATION ×4 (01:58→20:03)
[2024-07-30] MEDS: FENTANYL 2,500MCG/NS250ML(*CRX 2,500 MCG/250 ML BAG 7.5 MCG IV CONT (02:15)
[2024-07-30] MEDS: CENTRAL LINE FLUSH 10 ML IV PUSH ×3 (05:01→19:44)
[2024-07-30 05:05] LABS: Alveolar/Arterial O2 Gradient 239.1 mmHg; Base Excess ABG 1.7 mEq/l (+/-2.0); Carboxyhemoglobin 0.3 % THb (0-2.0); Fractional Inspired Oxygen 50 %; HCO3 ABG 25.1 mEq/l (22.0-26.0); Methemoglobin ABG 0.3 %THb (0-1.5); Oxygen Content ABG 15.8 %vol (16.0-22.0); Oxygen Saturation ABG 96.3 % (95.0-100.0); PO2 FiO2 Ratio Arterial Blood 1.56 %; Reduced Hemoglobin 4.4 %THb (0-5.0); Site Drawn RIGHT RADIAL; Total Hemoglobin 11.8 g/dL (12.0-18.0); pH ABG 7.473 (7.350-7.450)
[2024-07-30 05:06] LABS: Arterial Blood Gas PEEP 5 cmH2O; Arterial Blood Gas Vent Mode ASV; Device VENTILATOR; Modified Allen's Test Pass
[2024-07-30 05:43] LABS: Basophils Percent Auto 0.5 % (0.2-1.2); Eosinophils Absolute Auto 0.1 K/mm3 (0-0.3); Eosinophils Percent Auto 1.1 % (0-4.4); Hematocrit 30.2 % (42.0-52.0); Hemoglobin 9.7 g/dL (14.0-18.0); Immature Granulocyte Absolute 0.12 K/mm3 (0.00-0.031); Immature Granulocyte Percent A 1.4 % (0-0.5); Lymphocytes Absolute Auto 0.68 K/mm3 (0.9-3.2); Lymphocytes Percent Auto 7.7 % (18.3-44.2); Mean Corpuscular HGB Conc 32.1 g/dl (32-36); Mean Corpuscular Hemoglobin 30.5 pg (26-34); Mean Platelet Volume 11.7 fl (7.4-10.4); Monocytes Absolute Auto 0.6 K/mm3 (0.1-0.6); Monocytes Percent Auto 6.4 % (2.6-8.5); Neutrophils Absolute Auto 7.4 K/mm3 (1.3-6.7); Neutrophils Percent Auto 82.9 % (45.5-73.1); Platelet Count Result 270 k/mm3 (150-375); Red Blood Count 3.18 M/mm3 (4.6-6.20); Red Cell Distribution Width 16.4 % (11.5-14.5); White Blood Count 8.9 K/mm3 (4.5-10.0)
[2024-07-30 05:52] LABS: Lactic Acid Reflex 0.7 mmol/L (0.7-2.0)
[2024-07-30 05:54] LABS: Alanine Aminotransferase 92 U/L (6-50); Albumin Level 2.9 g/dL (3.5-5.1); Alkaline Phosphatase 271 U/L (38-126); Anion Gap 7 mmol/L (4-12); Aspartate Amino Transferase 49 U/L (17-59); Bilirubin,Total 0.3 mg/dL (0.2-1.3); Blood Urea Nitrogen 18 mg/dL (9-20); Calcium 8.4 mg/dL (8.4-10.2); Carbon Dioxide 25 mmol/L (22-30); Chloride 103 mmol/L (98-107); Estimated CRCL calculation 133 ml/min; Estimated Glomerular Filt Rate > 60; Glucose 113 mg/dL (65-110); Phosphorus 4.9 mg/dL (2.5-4.5); Potassium 3.9 mmol/L (3.4-5.0); Sodium 135 mmol/L (137-145); Triglycerides 152 mg/dL (<150)
[2024-07-30] MEDS: MEROPENEM 1 GM/NS 100 ML 1 GM/100 ML BAG IVPB ×3 (06:10→21:17)
[2024-07-30] MEDS: ENOXAPARIN 40 MG/0.4 ML SYRINGE SUB-Q (08:41)
[2024-07-30] MEDS: FOLIC ACID 1 MG/0.2 ML INJ IV PUSH (08:42)
[2024-07-30] MEDS: QUEtiapine FUMARATE 12.5 MG TABLET PO ×2 (08:42→19:43)
[2024-07-30] MEDS: PANTOPRAZOLE SODIUM IV 40 MG VIAL IV PUSH (08:42)
[2024-07-30] MEDS: polyethylene glycoL 3350 17 GM POWD.PACK PO (08:42)
[2024-07-30] MEDS: ASPIRIN 81 MG CHEWABLE TABLET PO (08:42)
[2024-07-30] MEDS: CLOPIDOGREL BISULFATE 75 MG TABLET PO (08:42)
[2024-07-30] MEDS: METOPROLOL TARTRATE 25 MG TABLET FEED TUBE ×2 (08:43→19:44)
[2024-07-30] MEDS: THIAMINE HCL 200 MG/2 ML VIAL IV PUSH (08:43)
[2024-07-30] MEDS: levETIRAcetam 500MG/NACL 100ML 500 MG/100 ML BAG 400 MG IVPB ×2 (08:43→19:42)
[2024-07-30] MEDS: MINERAL OIL/WHITE PETROLATUM OINTMENT 1 APPLIC EACH EYE ×2 (08:44→19:44)
[2024-07-30] MEDS: NOREPINEPHRINE 8 MG/D5W 250 ML 8 MG/250 ML BAG 1.88 MG IV CONT (08:46)
[2024-07-30] MEDS: ACETAMINOPHEN ELIXIR 325 MG/10.15 ML UDC 650 MG PO ×2 (09:56→17:26)
[2024-07-30] MEDS: dexmedeTOMIDine 400 MCG/100 ML 400 MCG/100 ML BAG 29.76 MCG IV CONT (10:44)
[2024-07-30 11:16] LABS: Glucose Point of Care 114 mg/dl (65-105)
--- NOTE | 2024-07-30 11:33 | PCNFU ---
Nutrition Follow-Up Complete: Suboptimal Energy Intake as related to mechanical ventilation as evidenced by NPO. goal: Meet estimated nutritional needs. We will continue current goal. Pt current nutrition is Vital AF 1.2 at 60 ml/hr. Nutrition recommendation: decreased tube feeding to 40 ml/hr Last recorded weight is 101.8 kg, up from 98.1 kg on admit. Bowel Motility: +BM reported 07/29 Labs Reviewed: TG 152, Glu 113, Na 135, Alb 2.9,Hct 30.2,Hgb 9.7 Meds Noted:Thiamine, Keppra, Miralax, Lovenox, Propofol 50 fokg=846 kcals, Folic Acid, Precedex, Levophed. Skin: WNL Additional Notes: Patient remains on mechanical vent and tube feedings of Vital AF 1.2. Recommendations during rounds to decrease tube feeding rate to 40 ml/hr due to Propofol infusion. Tube feedings have been decreased to 40 ml/hr. Total Nutrition: 1846 kcal/66 gm protein/714 ml water. Flush 30 ml q 4 hours. Will continue to monitor rate for need of protein modulars. Will monitor weight, labs, skin, diet orders, meds every Monday and Monday.
--- NOTE | 2024-07-30 11:35 | WPDINTPN ---
Progress Note: A&P Assessment and Plan (1) Acute respiratory failure: Code(s): J96.00 - Acute respiratory failure, unspecified whether with hypoxia or hypercapnia Status: Acute Assessment and Plan: Acute respiratory failure likely related to pneumonia, COPD exacerbation and pulmonary edema -07/19: Intubated for impending respiratory failure as patient was tachypneic, tachycardic with severe mottling on bilateral lower extremities, obtunded on BiPAP - 07/23 increase FiO2 requirement and peep had to be increased to 10 and currently FiO2 70%. -chest x-ray this morning: Worsening haziness and airspace disease on the right basilar region -ABG reviewed -currently on ASV mode of ventilation -will give Lasix 20 mg IV x1 -PCR for influenza RSV and COVID were negative - urine pneumococcal negative and Legionella antigen negative -patient has been difficult to adequately sedate and evaluate for weaning trial. On holding sedation patient becomes tachypneic asynchronous with the ventilator tachycardic. Currently on Precedex, propofol and fentanyl infusion -continue Seroquel Patient febrile with worsening chest x-ray be developing new pneumonia, -discussed with patient's spouse, initially she wanted tracheostomy and a PEG tube placement, but now has decided against it after talking to her family, she may opt for comfort measures on 07/31/2024 -CT chest 07/23 IMPRESSION: 1. Mild pulmonary edema. 2. Small pleural effusions, left worse than right. 3. Collapse of right lung lower lobe, worse than expected for the size of the pleural effusion. 07/24 had diagnostic and therapeutic bronchoscopy. Cultures growing normal quintin (2) Shock: Code(s): R57.9 - Shock, unspecified Status: Acute Assessment and Plan: Hypotension, lactic acidosis, tachycardia, tachypnea, hyperbilirubinemia, acute kidney injury, mottling on lower extremities, fevers -patient seems to be hypovolemic, fluid-resuscitated -could be related to pneumonia, bacteremia and cholecystitis -07/19: Blood cultures negative so far -07/19: Urine cultures negative -07/19: Sputum cultures negative -07/19: Initially on azithromycin, ceftriaxone and vancomycin, -completed course of azithromycin -vancomycin discontinued Continue meropenem for total of 14 days Requiring low-dose Levophed on and off. Maintained MAP > 65 mmHg -patient did diurese well on 07/29/2024 with negative fluid balance 07/20: Gallbladder cultures growing Enterococcus and Bacteroides fragilis 07/19: Echocardiogram Summary 1. Technically difficult exam would done with patient on mechanical ventilator support. 2. Definity contrast used to improve visualization. 3. Global left ventricular systolic function appears to be intact. EF 50-55% 4. No significant valvular dysfunction, mildly sclerotic aortic valve. 5. RVSP 18 mmHg (3) AMS (altered mental status): Code(s): R41.82 - Altered mental status, unspecified Status: Acute Assessment and Plan: Patient with altered mental status could be related to hypoxia. Urine drug screen was negative -patient also had some aphasia which could be secondary to a stroke/hypoxia -appreciate Neurology evaluation and recommendation, will continue Plavix, aspirin and statin - Patient did follows simple commands on loading sedation 07/19: CTA neck 60-70% stenosis of the proximal right internal carotid artery with additional 70% stenosis of the distal right common carotid artery. 50% stenosis of the proximal left internal carotid artery. 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
[2024-07-30 17:37] LABS: Glucose Point of Care 124 mg/dl (65-105)
[2024-07-30] MEDS: dexmedeTOMIDine 400 MCG/100 ML 400 MCG/100 ML BAG 17.36 MCG IV CONT (19:43)
[2024-07-30 23:39] LABS: Glucose Point of Care 115 mg/dl (65-105)
[2024-07-31] VITALS (30 sets, daily range): BP systolic 93–127; BP diastolic 56–88; PULSE 78–117; RESP 18–25; TEMP 37.2–38.3; O2SAT 94–98
[2024-07-31] MEDS: dexmedeTOMIDine 400 MCG/100 ML 400 MCG/100 ML BAG 17.36 MCG IV CONT ×2 (02:00→07:26)
[2024-07-31] MEDS: LEVALBUTEROL NEB 1.25 MG/3 ML INHALATION ×2 (02:29→07:47)
[2024-07-31] MEDS: IPRATROPIUM BR 0.02% INH SOLN 0.5 MG/2.5 ML VIAL INHALATION ×2 (02:29→07:47)
[2024-07-31] MEDS: PROPOFOL IV EMULSION 100 ML 29.91 MG IV CONT ×4 (04:00→10:27)
[2024-07-31] MEDS: CENTRAL LINE FLUSH 10 ML IV PUSH (05:38)
[2024-07-31] MEDS: MEROPENEM 1 GM/NS 100 ML 1 GM/100 ML BAG IVPB (05:39)
[2024-07-31 06:00] LABS: Basophils Percent Auto 0.4 % (0.2-1.2); Eosinophils Absolute Auto 0.1 K/mm3 (0-0.3); Eosinophils Percent Auto 1.3 % (0-4.4); Hematocrit 30.5 % (42.0-52.0); Hemoglobin 9.7 g/dL (14.0-18.0); Immature Granulocyte Absolute 0.17 K/mm3 (0.00-0.031); Immature Granulocyte Percent A 1.8 % (0-0.5); Lymphocytes Absolute Auto 0.88 K/mm3 (0.9-3.2); Lymphocytes Percent Auto 9.6 % (18.3-44.2); Mean Corpuscular HGB Conc 31.8 g/dl (32-36); Mean Corpuscular Hemoglobin 30.1 pg (26-34); Mean Corpuscular Volume 94.7 fl (80-100); Mean Platelet Volume 11.3 fl (7.4-10.4); Monocytes Absolute Auto 0.7 K/mm3 (0.1-0.6); Monocytes Percent Auto 7.3 % (2.6-8.5); Neutrophils Absolute Auto 7.3 K/mm3 (1.3-6.7); Neutrophils Percent Auto 79.6 % (45.5-73.1); Platelet Count Result 328 k/mm3 (150-375); Red Blood Count 3.22 M/mm3 (4.6-6.20); Red Cell Distribution Width 16.6 % (11.5-14.5); White Blood Count 9.2 K/mm3 (4.5-10.0)
[2024-07-31 06:10] LABS: Alanine Aminotransferase 67 U/L (6-50); Alkaline Phosphatase 254 U/L (38-126); Anion Gap 3 mmol/L (4-12); Aspartate Amino Transferase 42 U/L (17-59); Bilirubin,Total 0.3 mg/dL (0.2-1.3); Blood Urea Nitrogen 18 mg/dL (9-20); Calcium 8.4 mg/dL (8.4-10.2); Carbon Dioxide 27 mmol/L (22-30); Chloride 104 mmol/L (98-107); Estimated CRCL calculation 133 ml/min; Estimated Glomerular Filt Rate > 60; Glucose 109 mg/dL (65-110); Magnesium 2.1 mg/dL (1.6-2.3); Phosphorus 4.9 mg/dL (2.5-4.5); Potassium 3.8 mmol/L (3.4-5.0); Sodium 134 mmol/L (137-145)
--- NOTE | 2024-07-31 08:48 | P.PNINT_ITS ---
Progress Note: A&P Assessment and Plan (1) Acute respiratory failure: Code(s): J96.00 - Acute respiratory failure, unspecified whether with hypoxia or hypercapnia Status: Acute Assessment and Plan: Acute respiratory failure likely related to pneumonia, COPD exacerbation and pulmonary edema -07/19: Intubated for impending respiratory failure as patient was tachypneic, tachycardic with severe mottling on bilateral lower extremities, obtunded on BiPAP - 07/23 increase FiO2 requirement and peep had to be increased to 10 and currently FiO2 70%. -chest x-ray this morning: Worsening haziness and airspace disease on the right basilar region -ABG reviewed -currently on ASV mode of ventilation -will give Lasix 20 mg IV x1 -PCR for influenza RSV and COVID were negative - urine pneumococcal negative and Legionella antigen negative -patient has been difficult to adequately sedate and evaluate for weaning trial. On holding sedation patient becomes tachypneic asynchronous with the ventilator tachycardic. Currently on Precedex, propofol and fentanyl infusion -continue Seroquel Patient febrile with worsening chest x-ray be developing new pneumonia, -discussed with patient's spouse, initially she wanted tracheostomy and a PEG tube placement, but now has decided against it after talking to her family, she may opt for comfort measures on 07/31/2024 -CT chest 07/23 IMPRESSION: 1. Mild pulmonary edema. 2. Small pleural effusions, left worse than right. 3. Collapse of right lung lower lobe, worse than expected for the size of the pleural effusion. 07/24 had diagnostic and therapeutic bronchoscopy. Cultures growing normal quintin (2) Shock: Code(s): R57.9 - Shock, unspecified Status: Acute Assessment and Plan: Hypotension, lactic acidosis, tachycardia, tachypnea, hyperbilirubinemia, acute kidney injury, mottling on lower extremities, fevers -patient seems to be hypovolemic, fluid-resuscitated -could be related to pneumonia, bacteremia and cholecystitis -07/19: Blood cultures negative so far -07/19: Urine cultures negative -07/19: Sputum cultures negative -07/19: Initially on azithromycin, ceftriaxone and vancomycin, -completed course of azithromycin -vancomycin discontinued Continue meropenem for total of 14 days Requiring low-dose Levophed on and off. Maintained MAP > 65 mmHg -patient did diurese well on 07/29/2024 with negative fluid balance 07/20: Gallbladder cultures growing Enterococcus and Bacteroides fragilis 07/19: Echocardiogram Summary 1. Technically difficult exam would done with patient on mechanical ventilator support. 2. Definity contrast used to improve visualization. 3. Global left ventricular systolic function appears to be intact. EF 50-55% 4. No significant valvular dysfunction, mildly sclerotic aortic valve. 5. RVSP 18 mmHg (3) AMS (altered mental status): Code(s): R41.82 - Altered mental status, unspecified Status: Acute Assessment and Plan: Patient with altered mental status could be related to hypoxia. Urine drug screen was negative -patient also had some aphasia which could be secondary to a stroke/hypoxia -appreciate Neurology evaluation and recommendation, will continue Plavix, aspirin and statin - Patient did follows simple commands on loading sedation 07/19: CTA neck 60-70% stenosis of the proximal right internal carotid artery with additional 70% stenosis of the distal right common carotid artery. 50% stenosis of the proximal left internal carotid artery. 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 at the origin of the right ve
[2024-07-31] MEDS: THIAMINE HCL 200 MG/2 ML VIAL IV PUSH (08:54)
[2024-07-31] MEDS: PANTOPRAZOLE SODIUM IV 40 MG VIAL IV PUSH (08:54)
[2024-07-31] MEDS: polyethylene glycoL 3350 17 GM POWD.PACK PO (08:54)
[2024-07-31] MEDS: METOPROLOL TARTRATE 25 MG TABLET FEED TUBE (08:54)
[2024-07-31] MEDS: CLOPIDOGREL BISULFATE 75 MG TABLET PO (08:54)
[2024-07-31] MEDS: FOLIC ACID 1 MG/0.2 ML INJ IV PUSH (08:54)
[2024-07-31] MEDS: ASPIRIN 81 MG CHEWABLE TABLET PO (08:54)
[2024-07-31] MEDS: QUEtiapine FUMARATE 12.5 MG TABLET PO (08:54)
[2024-07-31] MEDS: ENOXAPARIN 40 MG/0.4 ML SYRINGE SUB-Q (08:55)
[2024-07-31] MEDS: levETIRAcetam 500MG/NACL 100ML 500 MG/100 ML BAG 400 MG IVPB (08:55)
[2024-07-31] MEDS: MINERAL OIL/WHITE PETROLATUM OINTMENT 1 APPLIC EACH EYE (08:55)
[2024-07-31] MEDS: FENTANYL 2,500MCG/NS250ML(*CRX 2,500 MCG/250 ML BAG 10 MCG IV CONT (09:25)
--- NOTE | 2024-07-31 11:09 | PCFNICU ---
ICU Rounding Note: Pt current nutrition is Vital AF 1.2 at 40 ml/hr. Last recorded weight is 102 kg, up from 98 kg on admit. Bowel Motility:+Bm reported 07/29 Labs Reviewed:Na 134, Alb 3.0,Hct 30.5,Hgb 9.7 Meds Noted: Propofol 50 txoj=722 kcal, Levophed, Fentanyl Skin: WNL Additional Notes: Patient remains on mechanical vent and tube feedings of Vital AF 1.2 at 40 ml/hr and tolerating per nursing. Flush 30 ml q 4 hours. Discussions in rounds regarding patient going comfort care this afternoon. No further recommendations at this time. Following daily in ICU rounds. Will monitor weight, labs, skin, diet orders, meds every 7 days.
[2024-07-31 11:39] LABS: Glucose Point of Care 99 mg/dl (65-105)
[2024-07-31] MEDS: ACETAMINOPHEN ELIXIR 325 MG/10.15 ML UDC 650 MG PO (12:30)
[2024-07-31] MEDS: MORPHINE SULFATE INJ (*CRX) 10 MG/ML AMP 5 MG IV PUSH ×4 (13:12→14:10)
[2024-07-31] MEDS: LORazepam INJ (*CRX) 2 MG/ML VIAL IV PUSH ×3 (13:12→13:45)
[2024-07-31] MEDS: MORPHINE SULFATE (*CRX) 2 MG/ML INJ IV PUSH (13:55)
[2024-07-31] MEDS: MORPHINE 50 MG/NS 100ML (*CRX) 50 MG/100 ML BAG 6 MG IV CONT (13:56)
[2024-07-31] MEDS: LORazepam INJ (*CRX) 2 MG/ML VIAL 4 MG IV PUSH ×2 (14:07→14:29)
--- NOTE | 2024-08-16 14:52 | PM.DDS ---
Discharge Summary Date and Time Date of : 07/31/24 Time of : 15:01 Provider Pronounced By: Provider Name of Provider That Pronounced: Dr. Roa Probable Cause of Probable Cause of : Patient's family withdraw support, cause of would be cardio pulmonary arrest Summary Hospital Course: Assessment and Plan (1) Acute respiratory failure: Code(s): J96.00 - Acute respiratory failure, unspecified whether with hypoxia or hypercapnia Status: Acute Assessment and Plan: Acute respiratory failure likely related to pneumonia, COPD exacerbation and pulmonary edema -07/19: Intubated for impending respiratory failure as patient was tachypneic, tachycardic with severe mottling on bilateral lower extremities, obtunded on BiPAP - 07/23 increase FiO2 requirement and peep had to be increased to 10 and currently FiO2 70%. -chest x-ray this morning: Worsening haziness and airspace disease on the right basilar region -ABG reviewed -currently on ASV mode of ventilation -will give Lasix 20 mg IV x1 -PCR for influenza RSV and COVID were negative - urine pneumococcal negative and Legionella antigen negative -patient has been difficult to adequately sedate and evaluate for weaning trial. On holding sedation patient becomes tachypneic asynchronous with the ventilator tachycardic. Currently on Precedex, propofol and fentanyl infusion -continue Seroquel Patient febrile with worsening chest x-ray be developing new pneumonia, -discussed with patient's spouse, initially she wanted tracheostomy and a PEG tube placement, but now has decided against it after talking to her family, she may opt for comfort measures on 07/31/2024 -CT chest 07/23 IMPRESSION: 1. Mild pulmonary edema. 2. Small pleural effusions, left worse than right. 3. Collapse of right lung lower lobe, worse than expected for the size of the pleural effusion. 07/24 had diagnostic and therapeutic bronchoscopy. Cultures growing normal quintin (2) Shock: Code(s): R57.9 - Shock, unspecified Status: Acute Assessment and Plan: Hypotension, lactic acidosis, tachycardia, tachypnea, hyperbilirubinemia, acute kidney injury, mottling on lower extremities, fevers -patient seems to be hypovolemic, fluid-resuscitated -could be related to pneumonia, bacteremia and cholecystitis -07/19: Blood cultures negative so far -07/19: Urine cultures negative -07/19: Sputum cultures negative -07/19: Initially on azithromycin, ceftriaxone and vancomycin, -completed course of azithromycin -vancomycin discontinued Continue meropenem for total of 14 days Requiring low-dose Levophed on and off. Maintained MAP > 65 mmHg -patient did diurese well on 07/29/2024 with negative fluid balance 07/20: Gallbladder cultures growing Enterococcus and Bacteroides fragilis 07/19: Echocardiogram Summary 1. Technically difficult exam would done with patient on mechanical ventilator support. 2. Definity contrast used to improve visualization. 3. Global left ventricular systolic function appears to be intact. EF 50-55% 4. No significant valvular dysfunction, mildly sclerotic aortic valve. 5. RVSP 18 mmHg (3) AMS (altered mental status): Code(s): R41.82 - Altered mental status, unspecified Status: Acute Assessment and Plan: Patient with altered mental status could be related to hypoxia. Urine drug screen was negative -patient also had some aphasia which could be secondary to a stroke/hypoxia -appreciate Neurology evaluation and recommendation, will continue Plavix, aspirin and statin - Patient did follows simple commands on loading sedation 07/19: CTA neck 60-70% stenosis of the proximal right internal carotid artery with additional 70% stenosis of the distal right common carotid artery. 50% stenosis of the proximal left internal carotid artery. 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
== END 2024-07-31 15:01 | disposition expired | DRG 870 ==
LOC: ANHED 02:31 → ANHIMU 07:35 → ANHICU 09:05
PROVIDERS: Internal Medicine; Internal Medicine Pulmonary Disease; Admitting Provider Internal Medicine; Emergency Provider Emergency Medicine; PCP Physician Assistant; Visit Provider Internal Medicine
PROC: 0BJ08ZZ Inspection of Tracheobronchial Tree, Via Natural or Artificial Opening Endoscopic (ICD-10-PCS; CPT 31622; principal; 2024-07-24 10:00)
DX: A41.9 Sepsis, unspecified organism (principal); J18.9 Pneumonia, unspecified organism; J96.01 Acute respiratory failure with hypoxia; R65.21 Severe sepsis with septic shock; R47.01 Aphasia; N17.9 Acute kidney failure, unspecified; J44.1 Chronic obstructive pulmonary disease with (acute) exacerbation; K81.0 Acute cholecystitis; E87.20 Acidosis, unspecified; J98.11 Atelectasis; B95.2 Enterococcus as the cause of diseases classified elsewhere; B96.6 Bacteroides fragilis [B. fragilis] as the cause of diseases classified elsewhere; I46.9 Cardiac arrest, cause unspecified; D64.9 Anemia, unspecified; D69.6 Thrombocytopenia, unspecified; F10.20 Alcohol dependence, uncomplicated; I10 Essential (primary) hypertension; I65.21 Occlusion and stenosis of right carotid artery; M19.90 Unspecified osteoarthritis, unspecified site; R74.01 Elevation of levels of liver transaminase levels; Z79.82 Long term (current) use of aspirin; Z20.822 Contact with and (suspected) exposure to COVID-19; Z88.0 Allergy status to penicillin; Z85.828 Personal history of other malignant neoplasm of skin; Z90.49 Acquired absence of other specified parts of digestive tract; Z87.891 Personal history of nicotine dependence; E80.6 Other disorders of bilirubin metabolism; Z66 Do not resuscitate; Z86.73 Personal history of transient ischemic attack (TIA), and cerebral infarction without residual deficits
CPT/HCPCS: 31500; 36415; 36600; 47490; 70496; 70498; 71045; 71250; 71260; 74177; 76705; 76775; 80053; 80061; 80069; 80074; 80202; 80307; 81001; 82140; 82375; 82436; 82550; 82570; 82805; 82810; 82948; 83036; 83050; 83605; 83690; 83735; 83880; 84100; 84133; 84300; 84478; 84484; 85018; 85025; 85027; 85055; 85610; 85730; 85999; 87040; 87070; 87075; 87076; 87077; 87086; 87181; 87185; 87205; 87449; 87637; 87641; 87899; 93005; 93971; 94002; 94003; 94640; 96361; 96365; 96375; 99285; A9270; C1751; C8929; G0378; J0456; J0613; J0696; J1120; J1650; J1720; J1940; J1953; J2060; J2185; J2250; J2270; J2470; J2704; J2919; J2997; J3010; J3370; J3411; J7030; J7040; J7070; J7120; P9041; P9047; Q9957; Q9967